=== PATIENT | female | born 1960 | race Caucasian/White ===

== ENCOUNTER 2020-09-16 07:51 | Outpatient (REF) | payer OTHER, SELFPAY ==
--- NOTE | 2020-09-16 | MM_ITS ---
EXAMINATION: MM SCREENING DIGITAL BREAST TOMOSYNTHESIS, BILATERAL CLINICAL INFORMATION: Screening. Asymptomatic. The lifetime risk of breast cancer based on the Tyrer-Cuzick Model is 6%. COMPARISON: Mammography: 09/11/2019, 09/05/2018 TECHNIQUE: Digital breast tomosynthesis is performed in both the craniocaudal and mediolateral oblique views along with computer-aided detection (CAD). Synthesized 2D images are generated from the tomosynthesis. FINDINGS: There are scattered areas of fibroglandular density (ACR BI-RADS breast composition Category b). There are no significant masses, abnormal calcifications, or other abnormalities. Lower right axillary tail node stable. No significant changes prior studies. IMPRESSION: No mammographic evidence of malignancy. ASSESSMENT: BI-RADS 2: Benign RECOMMENDATION: Routine annual mammography screening. This patient's information was entered into a reminder system with a target due date for their next mammogram.
== END 2020-09-16 07:52 | disposition home or self-care (01) ==
LOC: HO.MAMMO 07:51
PROVIDERS: Visit Provider Internal Medicine Medical Oncology
DX: Z12.31 Encounter for screening mammogram for malignant neoplasm of breast (principal)
CPT/HCPCS: 77063; 77067

== ENCOUNTER 2020-09-26 08:29 | Outpatient (REF) | payer OTHER, SELFPAY ==
[2020-09-26 15:54] LABS: CT PCR NOT DETECTED (Not Detect.); NG PCR NOT DETECTED (Not Detect.)
[2020-09-27 09:47] LABS: BV Int Neg Control Negative (Negative); BV Int Pos Control Positive (Positive)
== END 2020-09-26 08:30 | disposition home or self-care (01) ==
LOC: HO.LAB 08:29
PROVIDERS: PCP Internal Medicine Medical Oncology; Referring Provider Internal Medicine Medical Oncology; Visit Provider Obstetrics & Gynecology
DX: N89.8 Other specified noninflammatory disorders of vagina (principal); N95.0 Postmenopausal bleeding; E66.9 Obesity, unspecified; Z68.35 Body mass index [BMI] 35.0-35.9, adult; Z11.8 Encounter for screening for other infectious and parasitic diseases; Z11.3 Encounter for screening for infections with a predominantly sexual mode of transmission
CPT/HCPCS: 87480; 87491; 87510; 87591; 87660; 99214

== ENCOUNTER 2020-10-03 12:17 | Outpatient (REF) | payer OTHER, SELFPAY ==
--- NOTE | 2020-10-03 12:20 | US_ITS ---
EXAMINATION: PELVIC ULTRASOUND CLINICAL INFORMATION: Postmenopausal bleeding COMPARISON: Previous pelvic ultrasound December 2016 TECHNIQUE: Transabdominal and transvaginal pelvic ultrasound was performed. Transvaginal exam was performed for better visualization of the uterus and ovaries. FINDINGS: The uterus is anteverted and measures 7.6 x 3.6 x 4.2 cm in dimension. There is a 1.4 x 1.2 x 1.5 cm heterogeneous lesion in the posterior uterine body suggestive of a fibroid. This is similar to previous exam. The endometrium appears thickened for a postmenopausal patient. The endometrium measures 1.2 cm. Endometrium is heterogeneous with multiple cystic areas. Largest cyst measures 6 x 5 x 7 mm. Endometrial thickness is similar to December 2016 exam. The small cystic areas were not appreciated on the previous exam. There is a small amount of fluid in the endocervical canal. There are nabothian cysts in the cervix. The ovaries are not seen. There is no fluid in the pelvis. US/US transvaginal IMPRESSION: Thickened heterogeneous endometrium with small cystic areas. Endometrial thickness measures 1.2 cm which is abnormally thickened for a postmenopausal patient. Stable small posterior uterine body fibroid. Ovaries not seen.
--- NOTE | 2020-10-03 12:20 | US_ITS ---
EXAMINATION: PELVIC ULTRASOUND CLINICAL INFORMATION: Postmenopausal bleeding COMPARISON: Previous pelvic ultrasound December 2016 TECHNIQUE: Transabdominal and transvaginal pelvic ultrasound was performed. Transvaginal exam was performed for better visualization of the uterus and ovaries. FINDINGS: The uterus is anteverted and measures 7.6 x 3.6 x 4.2 cm in dimension. There is a 1.4 x 1.2 x 1.5 cm heterogeneous lesion in the posterior uterine body suggestive of a fibroid. This is similar to previous exam. The endometrium appears thickened for a postmenopausal patient. The endometrium measures 1.2 cm. Endometrium is heterogeneous with multiple cystic areas. Largest cyst measures 6 x 5 x 7 mm. Endometrial thickness is similar to December 2016 exam. The small cystic areas were not appreciated on the previous exam. There is a small amount of fluid in the endocervical canal. There are nabothian cysts in the cervix. The ovaries are not seen. There is no fluid in the pelvis. US/US pelvic complete IMPRESSION: Thickened heterogeneous endometrium with small cystic areas. Endometrial thickness measures 1.2 cm which is abnormally thickened for a postmenopausal patient. Stable small posterior uterine body fibroid. Ovaries not seen.
== END 2020-10-03 12:18 | disposition home or self-care (01) ==
LOC: HO.US 12:17
PROVIDERS: Visit Provider Obstetrics & Gynecology
DX: N95.0 Postmenopausal bleeding (principal)
CPT/HCPCS: 76830; 76856

== ENCOUNTER → 2020-10-24 14:56 | Outpatient (BNVA) | payer OTHER, SELFPAY | PROVIDERS: Visit Provider Obstetrics & Gynecology | DX: Z01.818 Encounter for other preprocedural examination (principal); N95.0 Postmenopausal bleeding | CPT/HCPCS: 99212 ==

== ENCOUNTER 2020-10-28 07:30 | Outpatient (REF) | payer OTHER, SELFPAY ==
[2020-10-28 07:53] LABS: MANUAL DIFF FLAG NO
[2020-10-28 07:55] LABS: Basophils Percent Auto 0.5 % (0-2); Eosinophils Absolute Auto 0.3 X10*3/uL (0.0-0.4); Eosinophils Percent Auto 3.6 % (0-4); Hematocrit 39.6 % (37-47); Hemoglobin 12.7 g/dl (12.0-16.0); Imm Gran Abs Auto 0.08 X10*3/uL (0.00-0.03); Imm Gran Pct Auto 0.9 % (0.0-0.4); Lymphocytes Absolute Auto 3.6 X10*3/uL (1.2-4.9); Lymphocytes Percent Auto 42.7 % (20-40); Mean Corpuscular HGB Conc 32.1 g/dl (31.0-35.0); Mean Corpuscular Volume 87.4 fL (80-98); Mean Platelet Volume 11.9 fL (9.4-12.3); Monocytes Absolute Auto 0.6 X10*3/uL (0.1-1.2); Monocytes Percent Auto 6.8 % (2-11); Neutrophils Absolute Auto 3.9 X10*3/uL (2.0-8.3); Neutrophils Percent Auto 45.5 % (45-73); Platelet Count 244 X10*3/uL (160-400); Red Blood Count 4.53 X10*6/uL (4.20-5.50); Red Cell Distribution Width 12.7 % (11.0-16.0); White Blood Count 8.5 X10*3/uL (4.8-10.8)
[2020-10-28 08:16] LABS: Alanine Aminotransferase 88 U/L (0-31); Albumin Level 4.3 g/dL (3.5-5.0); Alkaline Phosphatase 116 U/L (39-117); Anion Gap 12 (12-20); Aspartate Amino Transferase 40 U/L (5-31); Bilirubin Total 0.4 mg/dL (0.0-1.0); Blood Urea Nitrogen 12 mg/dL (9-16); Calcium 9.6 mg/dL (8.4-10.2); Carbon Dioxide 27 mmol/L (22-29); Chloride 104 mmol/L (96-108); Cholesterol 244 mg/dL; Estimated Glomerular Filt Rate > 60; Glucose Fasting 259 mg/dL (60-99); HDL Cholesterol 37 mg/dL; LDL Cholesterol Calculated 155 mg/dl; Potassium 4.2 mmol/l (3.3-5.1); Sodium 139 mmol/L (135-145); Total Protein 6.9 g/dL (6.5-8.0); Triglycerides 264 mg/dL
[2020-10-28 08:18] LABS: Estimated Average Glucose 217 mg/dL; Hemoglobin A1c % 9.2 %
== END 2020-10-28 07:31 | disposition home or self-care (01) ==
LOC: HO.LAB 07:30
PROVIDERS: PCP Internal Medicine Medical Oncology; Visit Provider Internal Medicine Medical Oncology
DX: I10 Essential (primary) hypertension (principal); E66.9 Obesity, unspecified; E78.2 Mixed hyperlipidemia
CPT/HCPCS: 36415; 80053; 80061; 83036; 85025

== ENCOUNTER 2020-11-02 11:39 | Day surgery (SDC) | payer OTHER, SELFPAY ==
[2020-10-30 08:13] VITALS: BMI 35.3
--- NOTE | 2020-11-01 09:20 | HO.ANESPROP2 ---
Documented by User: Inna Blanca 11/01/20 09:21 HPI - Anesthesia Eval Consult details Narrative: 60yo F for D&C Diagnostic Hysteroscopy with Myosure PMFSH Past Medical History Medical History delivery delivered Diabetes Elevated cholesterol Hypertension Family History Family History Paternal Grandmother Intestinal cancer Maternal Grandfather FH: throat cancer Surgical History Surgical History Hx of section Tubal ligation status Social History Social History Alcohol intake: never Smoking Status: Never smoker Use of substances other than those prescribed or required for medical reasons: No Advance Directives Information Provided: No Sexual orientation: Straight/Heterosexual Gender identity: female Meds Allergies Allergy/AdvReac Type Severity Reaction Status Date / Time No Known Allergies Allergy Verified 10/24/20 15:25 Home Medications Medication Instructions Recorded Confirmed Type metformin 500 mg tablet 500 mg PO BID 09/26/20 10/30/20 History glipizide 5 mg PO BID 10/30/20 10/30/20 History hydrochlorothiazide 25 mg PO QAM 10/30/20 10/30/20 History lisinopril 10 mg PO DAILY 10/30/20 10/30/20 History simvastatin 10 mg PO BEDTIME 10/30/20 10/30/20 History Exam Exam Date and Time: November 01, 2020 0920 Height,Weight and Vital Signs: Height 5 ft Weight 82.1 kg Pertinent Lab Results Pertinent Lab Results: Laboratory Tests 10/28/20 10/28/20 07:40 07:40 WBC 8.5 Hgb 12.7 Hct 39.6 Plt Count 244 Sodium 139 Potassium 4.2 Chloride 104 Carbon Dioxide 27 BUN 12 Creatinine 0.80 Assessment and Plan Assessment Anesthesia Assessment: Chart Reviewed Documented by User: Jasper Amos MD 11/02/20 17:05 [facility] Past Medical History Medical History delivery delivered Diabetes Elevated cholesterol Hypertension Family History Family History Paternal Grandmother Intestinal cancer Maternal Grandfather FH: throat cancer Surgical History Surgical History Hx of section Tubal ligation status Social History Social History Alcohol intake: never Smoking Status: Never smoker Use of substances other than those prescribed or required for medical reasons: No Advance Directives Information Provided: No Sexual orientation: Straight/Heterosexual Gender identity: female Meds Allergies Allergy/AdvReac Type Severity Reaction Status Date / Time No Known Allergies Allergy Verified 10/24/20 15:25 Home Medications Medication Instructions Recorded Confirmed Type metformin 500 mg tablet 500 mg PO BID 09/26/20 10/30/20 History glipizide 5 mg PO BID 10/30/20 10/30/20 History hydrochlorothiazide 25 mg PO QAM 10/30/20 10/30/20 History lisinopril 10 mg PO DAILY 10/30/20 10/30/20 History simvastatin 10 mg PO BEDTIME 10/30/20 10/30/20 History Exam Airway Mallampati Class: III TM Dist: >3cm Neck ROM: Full Denture: Upper and Lower Loose/Missing/Broken Teeth: No Assessment and Plan Assessment Anesthesia Assessment: Anesthesia Plan Discussed and Chart Reviewed Final Anesthetic Review NPO: Yes ASA Class: III Final Preanesthetic Review: No Changes in Pt Med Stat, Meds/Allgs Chart Reviewed, Consent Obtained/Reviewed and Anes Risks/Benef Reviewed Patient Risk: Low Procedure Risk: Low Anesthetic Plan Anesthetic Plan: GA Disposition: Standard PACU
[2020-11-02 12:28] VITALS: BP 146/95; PULSE 72; RESP 16; TEMP 36.3; O2SAT 98
[2020-11-02] MEDS: Lactated Ringers 1,000 ML 100 ML IVCONT (12:51)
[2020-11-02 13:15] LABS: Glucose, Whole Blood 175 mg/dL (60-115)
--- NOTE | 2020-11-02 17:16 | MHC.SHP ---
Pre-Procedural Eval Section A The patient is an INPATIENT: No Changes since office visit: No Cold of Flu in the past 2 weeks, No New Medical Problems, No Changes in Medication and No Patient answered all questions The History & Physical has been completed within 30 days and I have reviewed it.: Yes Section B Chief Complaint: Post-Menopausal Bleeding Allergies: Allergies Allergy/AdvReac Type Severity Reaction Status Date / Time No Known Allergies Allergy Verified 10/24/20 15:25 Plan Patient has been examined and remains a candidate for the planned procedure
--- NOTE | 2020-11-02 17:20 | W.PM.OPN ---
Operative Note Operative Note Date of Service: 11/02/20 Narrative: Pre-Op Diagnosis: 1. Postmenopausal bleeding 2. Thickened endometrial lining Post op Diagnoses: Same 3. Endometrial polyp Procedures performed: Hysteroscopy D&C with Myosure polypectomy Ms. Camara is a 60 year old with postmenopausal bleeding. She presents today for hysteroscopy d&c for postmenopausal bleeding after pelvic US showed a thickened endometrial lining of 1.2cm. Surgical Risks: The patient was informed of the risks and benefits of a hysteroscopy with dilation and curettage. Risks included but were not limited to bleeding, infection, injury to the vulva, vagina, or cervix, and uterine perforation with possible need for further surgery. The patient expressed understanding of the risks involved, all questions were answered, and the patient consented to the procedure. The patient was taken to the operating room where a time out was confirmed to confirm correct patient and correct procedure. Adequate general anesthesia was established. The patient was then positioned on the operating table in the dorsal lithotomy position with her legs supported using stirrups. All pressure points were padded and a warm blanket was placed to maintain control of core body temperature. The patient was then prepped and draped in the usual sterile fashion. A straight catheter was inserted into the bladder and urine was obtained. A bivalve speculum was then inserted into the vagina. The anterior lip of the cervix was visualized and grasped using a single tooth tenaculum. The cervix was adequately dilated using Gregory dilators for the introduction of the hysteroscope. The hysteroscope was introduced under direct visualization using normal saline solution as the distending media. The hysteroscope was advanced to the fundus and the entire uterine cavity was inspected. A polyp filling the uterine fundus was noted. The myosure device was inserted and curettage of the polyp performed until it was determined that remaining polyp could not be safely removed as it was beyond visualization with the scope. An attempt was made to locate a longer scope; however, none was available. The hysteroscope was then removed. Endometrial tissue was obtained and was sent to pathology. Following the curetting, good hemostasis was noted. The single-tooth tenaculum was removed from the anterior lip of the cervix and hemostasis was also noted at the tenaculum puncture sites. The speculum was then removed from the vagina. At the end of the procedure, all needle, sponge, and instrument counts were noted to be correct x2. The patient was transferred to the recovery room in stable condition. Fluid Deficit: estimated approximately 500mL; difficult to estimate due to most of the fluid being on the floor and surgeon. EBL: 5mL
[2020-11-02 17:28] VITALS: BP 156/82; PULSE 95; RESP 16; TEMP 37; O2SAT 98
[2020-11-02 17:33] VITALS: BP 126/92; PULSE 92; RESP 16; O2SAT 94
[2020-11-02 17:38] VITALS: BP 131/92; PULSE 81; RESP 16; O2SAT 93
[2020-11-02 17:43] VITALS: BP 137/83; PULSE 80; RESP 16; O2SAT 93
[2020-11-02 17:58] VITALS: BP 152/93; PULSE 84; RESP 18; O2SAT 95
== END 2020-11-02 18:25 | disposition home or self-care (01) ==
PROVIDERS: PCP Internal Medicine Medical Oncology; Visit Provider Obstetrics & Gynecology
PROC: 0UDB8ZX Extraction of Endometrium, Via Natural or Artificial Opening Endoscopic, Diagnostic (ICD-10-PCS; CPT 58558; principal; 2020-11-02 13:30)
DX: N95.0 Postmenopausal bleeding (principal); N84.0 Polyp of corpus uteri; D25.9 Leiomyoma of uterus, unspecified; Z98.51 Tubal ligation status; I10 Essential (primary) hypertension; E11.9 Type 2 diabetes mellitus without complications; E78.00 Pure hypercholesterolemia, unspecified; Z79.84 Long term (current) use of oral hypoglycemic drugs; Z79.899 Other long term (current) drug therapy; Z80.0 Family history of malignant neoplasm of digestive organs
CPT/HCPCS: 58558; 82947; 88305; J1100; J2250; J2405; J3010

== ENCOUNTER → 2020-11-15 12:45 | Outpatient (BNVA) | payer OTHER, SELFPAY | PROVIDERS: PCP Internal Medicine Medical Oncology; Visit Provider Obstetrics & Gynecology | DX: Z76.89 Persons encountering health services in other specified circumstances (principal) ==

== ENCOUNTER 2021-02-03 07:05 | Outpatient (REF) | payer OTHER, SELFPAY ==
[2021-02-03 07:37] LABS: MANUAL DIFF FLAG NO
[2021-02-03 07:58] LABS: Basophils Percent Auto 0.4 % (0-2); Eosinophils Absolute Auto 0.3 X10*3/uL (0.0-0.4); Eosinophils Percent Auto 3.2 % (0-4); Hematocrit 40.9 % (37-47); Hemoglobin 13.2 g/dl (12.0-16.0); Imm Gran Abs Auto 0.07 X10*3/uL (0.00-0.03); Imm Gran Pct Auto 0.9 % (0.0-0.4); Lymphocytes Absolute Auto 3.1 X10*3/uL (1.2-4.9); Lymphocytes Percent Auto 39.9 % (20-40); Mean Corpuscular HGB Conc 32.3 g/dl (31.0-35.0); Mean Corpuscular Volume 86.7 fL (80-98); Mean Platelet Volume 12.3 fL (9.4-12.3); Monocytes Absolute Auto 0.6 X10*3/uL (0.1-1.2); Neutrophils Absolute Auto 3.8 X10*3/uL (2.0-8.3); Neutrophils Percent Auto 48.6 % (45-73); Platelet Count 269 X10*3/uL (160-400); Red Blood Count 4.72 X10*6/uL (4.20-5.50); Red Cell Distribution Width 12.7 % (11.0-16.0); White Blood Count 7.9 X10*3/uL (4.8-10.8)
[2021-02-03 08:07] LABS: Alanine Aminotransferase 86 U/L (0-31); Albumin Level 4.7 g/dL (3.5-5.0); Alkaline Phosphatase 112 U/L (39-117); Anion Gap 12 (12-20); Aspartate Amino Transferase 46 U/L (5-31); Bilirubin Total 0.7 mg/dL (0.0-1.0); Blood Urea Nitrogen 16 mg/dL (9-16); Carbon Dioxide 29 mmol/L (22-29); Chloride 103 mmol/L (96-108); Cholesterol 216 mg/dL; Estimated Glomerular Filt Rate > 60; Glucose Random 166 mg/dL (60-115); HDL Cholesterol 34 mg/dL; LDL Cholesterol Calculated 154 mg/dl; Potassium 4.5 mmol/L (3.3-5.1); Sodium 139 mmol/L (135-145); Total Protein 7.2 g/dL (6.5-8.0); Triglycerides 141 mg/dL
[2021-02-03 08:14] LABS: Calcium 10.7 mg/dL (8.4-10.2)
[2021-02-03 09:16] LABS: Estimated Average Glucose 189 mg/dL; Hemoglobin A1c % 8.2 %
== END 2021-02-03 07:06 | disposition home or self-care (01) ==
LOC: HO.LAB 07:05
PROVIDERS: PCP Internal Medicine Medical Oncology; Visit Provider Internal Medicine Medical Oncology
DX: I10 Essential (primary) hypertension (principal); E66.9 Obesity, unspecified; E11.39 Type 2 diabetes mellitus with other diabetic ophthalmic complication; E78.2 Mixed hyperlipidemia; E83.52 Hypercalcemia
CPT/HCPCS: 36415; 80053; 80061; 83036; 85025

== ENCOUNTER 2021-07-07 07:34 | Outpatient (REF) | payer OTHER, SELFPAY ==
[2021-07-07 08:32] LABS: MANUAL DIFF FLAG NO
[2021-07-07 08:43] LABS: Basophils Absolute Auto 0.1 X10*3/uL (0.0-0.2); Basophils Percent Auto 0.6 % (0-2); Eosinophils Absolute Auto 0.3 X10*3/uL (0.0-0.4); Eosinophils Percent Auto 3.6 % (0-4); Hematocrit 41.2 % (37-47); Hemoglobin 13.2 g/dl (12.0-16.0); Imm Gran Abs Auto 0.15 X10*3/uL (0.00-0.03); Imm Gran Pct Auto 1.7 % (0.0-0.4); Lymphocytes Absolute Auto 3.3 X10*3/uL (1.2-4.9); Lymphocytes Percent Auto 38.2 % (20-40); Mean Corpuscular Hemoglobin 27.6 pg (27.0-33.0); Mean Platelet Volume 11.8 fL (9.4-12.3); Monocytes Absolute Auto 0.6 X10*3/uL (0.1-1.2); Monocytes Percent Auto 6.6 % (2-11); Neutrophils Absolute Auto 4.3 X10*3/uL (2.0-8.3); Neutrophils Percent Auto 49.3 % (45-73); Platelet Count 269 X10*3/uL (160-400); Red Blood Count 4.79 X10*6/uL (4.20-5.50); Red Cell Distribution Width 13.5 % (11.0-16.0); White Blood Count 8.7 X10*3/uL (4.8-10.8)
[2021-07-07 08:55] LABS: Estimated Average Glucose 171 mg/dL; Hemoglobin A1c % 7.6 %
[2021-07-07 09:10] LABS: Alanine Aminotransferase 48 U/L (0-31); Albumin Level 4.5 g/dL (3.5-5.0); Alkaline Phosphatase 103 U/L (39-117); Anion Gap 16 (12-20); Aspartate Amino Transferase 23 U/L (5-31); Bilirubin Total 0.5 mg/dL (0.0-1.0); Blood Urea Nitrogen 18 mg/dL (9-16); Carbon Dioxide 23 mmol/L (22-29); Chloride 104 mmol/L (96-108); Cholesterol 261 mg/dL; Estimated Glomerular Filt Rate > 60; Glucose Fasting 199 mg/dL (60-99); HDL Cholesterol 44 mg/dL; LDL Cholesterol Calculated 155 mg/dl; Potassium 3.9 mmol/L (3.3-5.1); Sodium 139 mmol/L (135-145); Total Protein 7.3 g/dL (6.5-8.0); Triglycerides 314 mg/dL
[2021-07-07 09:41] LABS: Calcium 10.7 mg/dL (8.4-10.2)
== END 2021-07-07 07:35 | disposition home or self-care (01) ==
LOC: HO.LAB 07:34
PROVIDERS: PCP Internal Medicine Medical Oncology; Visit Provider Internal Medicine Medical Oncology
DX: E66.9 Obesity, unspecified (principal); I10 Essential (primary) hypertension; E78.2 Mixed hyperlipidemia
CPT/HCPCS: 36415; 80053; 80061; 83036; 85025

== ENCOUNTER 2021-10-06 08:41 | Outpatient (REF) | payer OTHER, SELFPAY ==
[2021-10-06 08:56] LABS: MANUAL DIFF FLAG NO
[2021-10-06 09:36] LABS: Basophils Absolute Auto 0.1 X10*3/uL (0.0-0.2); Basophils Percent Auto 0.7 % (0-2); Eosinophils Absolute Auto 0.3 X10*3/uL (0.0-0.4); Eosinophils Percent Auto 3.1 % (0-4); Hematocrit 41.8 % (37.0-47.0); Hemoglobin 13.6 g/dl (12.0-16.0); Imm Gran Abs Auto 0.14 X10*3/uL (0.00-0.03); Imm Gran Pct Auto 1.6 % (0.0-0.4); Lymphocytes Absolute Auto 3.2 X10*3/uL (1.2-4.9); Lymphocytes Percent Auto 36.1 % (20-40); Mean Corpuscular HGB Conc 32.5 g/dl (31.0-35.0); Mean Corpuscular Hemoglobin 28.4 pg (27.0-33.0); Mean Corpuscular Volume 87.3 fL (80.0-98.0); Mean Platelet Volume 11.8 fL (9.4-12.3); Monocytes Absolute Auto 0.6 X10*3/uL (0.1-1.2); Monocytes Percent Auto 7.3 % (2-11); Neutrophils Absolute Auto 4.5 x10*3/uL (2.0-8.3); Neutrophils Percent Auto 51.2 % (45-73); Platelet Count 270 X10*3/uL (160-400); Red Blood Count 4.79 X10*6/uL (4.20-5.50); Red Cell Distribution Width 12.7 % (11.0-16.0); White Blood Count 8.8 X10*3/uL (4.8-10.8)
[2021-10-06 09:39] LABS: Estimated Average Glucose 192 mg/dL; Hemoglobin A1c % 8.3 %
[2021-10-06 09:53] LABS: Microalbum/Creatinine Ratio Ur 49.8 ug/mg cr
[2021-10-06 09:55] LABS: Alanine Aminotransferase 79 U/L (0-31); Albumin Level 4.6 g/dL (3.5-5.0); Alkaline Phosphatase 132 U/L (39-117); Anion Gap 11 (12-20); Aspartate Amino Transferase 46 U/L (5-31); Bilirubin Total 0.5 mg/dL (0.0-1.0); Blood Urea Nitrogen 11 mg/dL (9-16); Calcium 10.9 mg/dL (8.4-10.2); Carbon Dioxide 28 mmol/L (22-29); Chloride 103 mmol/L (96-108); Cholesterol 248 mg/dL; Estimated Glomerular Filt Rate > 60; Glucose Fasting 221 mg/dL (60-99); HDL Cholesterol 38 mg/dL; LDL Cholesterol Calculated 152 mg/dl; Potassium 4.4 mmol/L (3.3-5.1); Sodium 138 mmol/L (135-145); Total Protein 7.2 g/dL (6.5-8.0); Triglycerides 290 mg/dL
== END 2021-10-06 08:42 | disposition home or self-care (01) ==
LOC: HO.LAB 08:41
PROVIDERS: PCP Internal Medicine Medical Oncology; Visit Provider Internal Medicine Medical Oncology
DX: I10 Essential (primary) hypertension (principal); E66.9 Obesity, unspecified; E11.39 Type 2 diabetes mellitus with other diabetic ophthalmic complication
CPT/HCPCS: 36415; 80053; 80061; 82043; 83036; 85025

== ENCOUNTER 2021-11-08 06:33 | Outpatient (REF) | payer OTHER, SELFPAY ==
--- NOTE | ~2021-11-08 | XR_ITS ---
EXAMINATION: XR SHOULDER, LEFT CLINICAL INFORMATION: Pain COMPARISON: Chest x-ray 03/21/2020 TECHNIQUE: Three views of the left shoulder. FINDINGS: Visualized portion of the proximal left humerus demonstrate no fracture. Humeral head demonstrates good articulation with the glenoid fossa. Small osteophyte along the inferomedial aspect of the humeral head/neck junction. There are mild hypertrophic changes of the acromioclavicular joint. Visualized left-sided ribs and lung parenchyma are unremarkable. XR/XR shoulder LT min 2V IMPRESSION: Mild degenerative changes of the left shoulder.
== END 2021-11-08 06:34 | disposition home or self-care (01) ==
LOC: HO.HOSX 06:33
PROVIDERS: Visit Provider Physician Assistant
DX: M75.42 Impingement syndrome of left shoulder (principal)
CPT/HCPCS: 73030; 99202

== ENCOUNTER 2021-12-22 08:51 | Outpatient (REF) | payer MEDICAID, SELFPAY ==
--- NOTE | ~2021-12-22 | MM_ITS ---
EXAMINATION: MM SCREENING DIGITAL BREAST TOMOSYNTHESIS, BILATERAL CLINICAL INFORMATION: Screening. Asymptomatic. The lifetime risk of breast cancer based on the Tyrer-Cuzick Model is 5%. COMPARISON: Mammography: 09/16/2020, 09/11/2019, 09/05/2018, 09/07/2016 TECHNIQUE: Digital breast tomosynthesis is performed in both the craniocaudal and mediolateral oblique views along with computer-aided detection (CAD). Synthesized 2D images are generated from the tomosynthesis. FINDINGS: There are scattered areas of fibroglandular density (ACR BI-RADS breast composition Category b). There are no significant masses, abnormal calcifications, or other abnormalities. Parenchymal pattern is similar to prior studies. There is no developing density or architectural abnormality. Intramammary node posterior upper outer right breast is stable to decreased. The axilla and skin contours are unremarkable. No significant changes. MM/MM tomosynthesis screening BI IMPRESSION: No mammographic evidence of malignancy. ASSESSMENT: BI-RADS 2: Benign RECOMMENDATION: Routine annual mammography screening. This patient's information was entered into a reminder system with a target due date for their next mammogram.
== END 2021-12-22 08:52 | disposition home or self-care (01) ==
LOC: HO.MAMMO 08:51
PROVIDERS: Visit Provider Internal Medicine Medical Oncology
DX: Z12.31 Encounter for screening mammogram for malignant neoplasm of breast (principal)
CPT/HCPCS: 77063; 77067

== ENCOUNTER 2022-01-12 09:37 | Outpatient (REF) | payer MEDICAID, SELFPAY ==
[2022-01-12 09:52] LABS: MANUAL DIFF FLAG NO
[2022-01-12 10:59] LABS: Basophils Absolute Auto 0.1 X10*3/uL (0.0-0.2); Basophils Percent Auto 0.6 % (0-2); Eosinophils Absolute Auto 0.3 X10*3/uL (0.0-0.4); Eosinophils Percent Auto 3.4 % (0-4); Hematocrit 40.6 % (37.0-47.0); Hemoglobin 13.4 g/dl (12.0-16.0); Imm Gran Abs Auto 0.16 X10*3/uL (0.00-0.03); Imm Gran Pct Auto 1.8 % (0.0-0.4); Lymphocytes Absolute Auto 3.2 X10*3/uL (1.2-4.9); Lymphocytes Percent Auto 35.3 % (20-40); Mean Corpuscular Hemoglobin 28.2 pg (27.0-33.0); Mean Corpuscular Volume 85.5 fL (80.0-98.0); Mean Platelet Volume 12.4 fL (9.4-12.3); Monocytes Absolute Auto 0.6 X10*3/uL (0.1-1.2); Monocytes Percent Auto 6.5 % (2-11); Neutrophils Absolute Auto 4.7 x10*3/uL (2.0-8.3); Neutrophils Percent Auto 52.4 % (45-73); Platelet Count 289 X10*3/uL (160-400); Red Blood Count 4.75 X10*6/uL (4.20-5.50); Red Cell Distribution Width 13.2 % (11.0-16.0)
[2022-01-12 11:28] LABS: Alanine Aminotransferase 90 U/L (0-31); Albumin Level 4.6 g/dL (3.5-5.0); Alkaline Phosphatase 115 U/L (39-117); Anion Gap 12 (12-20); Aspartate Amino Transferase 63 U/L (5-31); Bilirubin Total 0.6 mg/dL (0.0-1.0); Blood Urea Nitrogen 12 mg/dL (9-16); Calcium 10.9 mg/dL (8.4-10.2); Carbon Dioxide 26 mmol/L (22-29); Chloride 104 mmol/L (96-108); Cholesterol 258 mg/dL; Estimated Glomerular Filt Rate > 60; Glucose Fasting 177 mg/dL (60-99); HDL Cholesterol 35 mg/dL; LDL Cholesterol Calculated 179 mg/dl; Potassium 4.2 mmol/L (3.3-5.1); Sodium 138 mmol/L (135-145); Total Protein 7.3 g/dL (6.5-8.0); Triglycerides 220 mg/dL
[2022-01-12 11:35] LABS: Estimated Average Glucose 200 mg/dL; Hemoglobin A1c % 8.6 %
[2022-01-14 16:22] LABS: Calcium (PTHI) 11.1 mg/dL (8.6-10.4); PTHI 69 pg/mL (14-64)
== END 2022-01-12 09:38 | disposition home or self-care (01) ==
LOC: HO.LAB 09:37
PROVIDERS: PCP Internal Medicine Medical Oncology; Visit Provider Internal Medicine Medical Oncology
DX: I10 Essential (primary) hypertension (principal); E78.2 Mixed hyperlipidemia
CPT/HCPCS: 36415; 80053; 80061; 83036; 83970; 85025

== ENCOUNTER 2022-03-11 08:13 | Outpatient (REF) | payer MEDICAID, SELFPAY ==
[2022-03-12 15:29] LABS: BV Int Neg Control Negative (Negative); BV Int Pos Control Positive (Positive)
[2022-03-13 16:32] LABS: HPV mRNA E6/E7 rflx Not Detected (Not Detected)
== END 2022-03-11 08:14 | disposition home or self-care (01) ==
LOC: HO.LAB 08:13
PROVIDERS: PCP Internal Medicine Medical Oncology; Visit Provider Advanced Practice Midwife
DX: Z01.411 Encounter for gynecological examination (general) (routine) with abnormal findings (principal); Z11.51 Encounter for screening for human papillomavirus (HPV); N89.8 Other specified noninflammatory disorders of vagina
CPT/HCPCS: 87480; 87510; 87624; 87660; 88142

== ENCOUNTER 2022-04-13 07:34 | Outpatient (REF) | payer MEDICAID, SELFPAY ==
[2022-04-13 07:40] LABS: MANUAL DIFF FLAG NO
[2022-04-13 08:04] LABS: Basophils Percent Auto 0.4 % (0-2); Eosinophils Absolute Auto 0.4 X10*3/uL (0.0-0.4); Eosinophils Percent Auto 4.1 % (0-4); Hematocrit 40.2 % (37.0-47.0); Imm Gran Abs Auto 0.17 X10*3/uL (0.00-0.03); Imm Gran Pct Auto 1.9 % (0.0-0.4); Lymphocytes Absolute Auto 3.2 X10*3/uL (1.2-4.9); Lymphocytes Percent Auto 35.1 % (20-40); Mean Corpuscular HGB Conc 32.3 g/dl (31.0-35.0); Mean Corpuscular Hemoglobin 27.2 pg (27.0-33.0); Mean Corpuscular Volume 84.1 fL (80.0-98.0); Mean Platelet Volume 11.5 fL (9.4-12.3); Monocytes Absolute Auto 0.6 X10*3/uL (0.1-1.2); Monocytes Percent Auto 6.5 % (2-11); Neutrophils Absolute Auto 4.7 x10*3/uL (2.0-8.3); Platelet Count 255 X10*3/uL (160-400); Red Blood Count 4.78 X10*6/uL (4.20-5.50); Red Cell Distribution Width 13.1 % (11.0-16.0); White Blood Count 9.1 X10*3/uL (4.8-10.8)
[2022-04-13 08:28] LABS: Alanine Aminotransferase 61 U/L (0-31); Albumin Level 4.4 g/dL (3.5-5.0); Alkaline Phosphatase 127 U/L (39-117); Anion Gap 11 (12-20); Aspartate Amino Transferase 30 U/L (5-31); Bilirubin Total 0.4 mg/dL (0.0-1.0); Blood Urea Nitrogen 15 mg/dL (9-16); Calcium 10.9 mg/dL (8.4-10.2); Carbon Dioxide 25 mmol/L (22-29); Chloride 106 mmol/L (96-108); Cholesterol 231 mg/dL; Estimated Average Glucose 177 mg/dL; Estimated Glomerular Filt Rate > 60; Glucose Fasting 239 mg/dL (60-99); HDL Cholesterol 40 mg/dL; Hemoglobin A1c % 7.8 %; LDL Cholesterol Calculated 147 mg/dl; Potassium 4.2 mmol/L (3.3-5.1); Sodium 138 mmol/L (135-145); Total Protein 7.3 g/dL (6.5-8.0); Triglycerides 223 mg/dL
== END 2022-04-13 07:35 | disposition home or self-care (01) ==
LOC: HO.LAB 07:34
PROVIDERS: PCP Internal Medicine Medical Oncology; Visit Provider Internal Medicine Medical Oncology
DX: I10 Essential (primary) hypertension (principal); E11.39 Type 2 diabetes mellitus with other diabetic ophthalmic complication
CPT/HCPCS: 36415; 80053; 80061; 83036; 85025

== ENCOUNTER 2022-10-03 11:37 | Emergency (ER) | payer MEDICAID, SELFPAY ==
--- NOTE | ~2022-10-03 | XR_ITS ---
EXAMINATION: XR FOOT, LEFT CLINICAL INFORMATION: Injury COMPARISON: None TECHNIQUE: AP, lateral, and oblique views of the left foot. FINDINGS: No fracture or dislocation. Alignment is anatomic. Joint spaces are maintained. There is prominent hypertrophic spurring at the plantar aponeurosis of the calcaneus. No ankle joint effusion. XR/XR foot LT min 3V IMPRESSION: No fracture or malalignment. Prominent plantar heel spur.
[2022-10-03 13:07] VITALS: BP 173/94; PULSE 79; RESP 18; TEMP 36.8; O2SAT 98; BMI 34.2
[2022-10-03 14:52] VITALS: BP 137/84; PULSE 85; RESP 18; TEMP 36.6; O2SAT 96
--- NOTE | 2022-10-03 16:15 | ED_ITS ---
HPI - Extremity Problem General Chief complaint: Extremity Problem Stated complaint: L Foot Pain Time Seen by Provider: 10/03/22 15:39 Source: patient, RN notes reviewed and old records reviewed Mode of arrival: ambulatory Limitations: no limitations History of Present Illness HPI Narrative: 62-year-old female with past medical history of diabetes is here today for complaining of left ankle pain. Patient states that when she woke up yesterday she had left ankle swelling with minimal pain. Patient states that she went to work and as more that she walked her left foot was hurting her. Patient reports to have increased swelling today. Mild redness to the top of her foot close to the lateral malleolus Complaint: extremity pain, joint swelling and joint pain Onset (ago): day(s) Pain Consistency: intermittent Location: left Severity scale (1-10): 8 Quality: aching Relieving factors: immobilization Exacerbating factors: weight bearing and walking Related Data Home Medications Medication Instructions Recorded Confirmed metformin 500 mg tablet 500 mg PO BID 09/26/20 10/30/20 glipizide 5 mg tablet 5 mg PO BID 10/30/20 10/30/20 hydrochlorothiazide 25 mg tablet 25 mg PO QAM 10/30/20 10/30/20 lisinopril 10 mg tablet 10 mg PO DAILY 10/30/20 10/30/20 simvastatin 10 mg tablet 10 mg PO BEDTIME 10/30/20 10/30/20 Previous Rx's Medication Instructions Recorded acetaminophen 650 mg 650 mg PO Q8H PRN pain #30 tabs 11/02/20 tablet,extended release (Tylenol 8 Hour) ibuprofen 800 mg tablet 800 mg PO Q8H PRN pain #30 tabs 11/02/20 fluconazole 150 mg tablet 150 mg PO ONCE PRN personal 1 day 03/11/22 (Diflucan) #1 tab cephalexin 500 mg capsule 500 mg PO BID 7 days #14 caps 10/03/22 doxycycline hyclate 100 mg capsule 100 mg PO BID #14 caps 10/03/22 Allergies Allergy/AdvReac Type Severity Reaction Status Date / Time No Known Allergies Allergy Verified 03/11/22 08:40 Review of Systems Review of Systems: Yes all other systems are reviewed and are negative Constitutional: Constitutional: Denies weight gain and Denies weight loss ENT: Reports system reviewed and no additional complaints, except as documented Cardiovascular: Cardiovascular: Reports no additional cardiovascular complaints Respiratory: Respiratory: Reports no additional respiratory complaints Musculoskeletal: Musculoskeletal: Reports arthralgias and Reports joint swelling Neurologic: Reports system reviewed and no additional complaints, except as documented Psychiatric: Psychiatric: Reports no additional psychiatric complaints Endocrine: Endocrine: Reports no additional endocrine complaints [facility] Past Medical History Medical History delivery delivered Diabetes Elevated cholesterol Hypertension Surgical History History of dilatation and curettage History of hysteroscopy Hx of section Tubal ligation status Family History Family History Paternal Grandmother Colon cancer Maternal Grandfather FH: throat cancer Social History Social History Alcohol intake: never Advance Directives: No Advance Directives Information Provided: No Sexual orientation: Straight/Heterosexual Gender identity: Female Physical Exam Vital Signs: Vital Signs: Last Vital Signs Temp 97.9 F 10/03/22 14:52 Pulse 85 10/03/22 14:52 Resp 18 10/03/22 14:52 BP 137/84 10/03/22 14:52 Pulse Ox 96 10/03/22 14:52 O2 Del Method 10/03/22 14:52 BMI result Body Mass Index 34.2 Extrem: Right upper extremity: normal to inspection, full ROM and normal capillary refill Left upper extremity: normal to inspection, full ROM and normal capillary refill Right lower extremity: normal to inspection, full ROM and normal capillary refill Left lower extremity: normal capillary refill, edema (Ankle, increased warmth) and ankle Details: swelling and pitting edema Course Course Course Narrative: 62-year-old female with past medical history of diabetes is here today for complaining of left ankle pain. Patient states that when she woke up yesterday she had left ankle swelling with minimal pain. Patient states that she went to work and as more that she walked her left foot was hurting her. Patient reports to have increased swelling today. Mild redness to the top of her foot close to the lateral malleolus. On exam patient has good range of motion of her left ankle. Reports to have a pain on the top of her ankle closer to lateral malleolus. Swelling to lateral malleolus and warmth to top of her foot, will order CBC. Patient is diabetic Reevaluation(s) Reevaluation #1: WBC 12.1. X-ray does not show any osteomyelitis or any joint involvement. Alignment is anatomic, joint spaces are maintained, no ankle joint effusion. I will send patient home with antibiotics for 7 days. Patient will follow-up with PCP and Ortho. MDM - Extremity (Nontraumatic) Lab Data Result diagrams: 10/03/22 16:23 Labs: Lab Results 10/03/22 Range/Units 16:23 WBC 12.1 H (4.8-10.8) X10*3/uL RBC 5.17 (4.20-5.50) X10*6/uL Hgb 14.0 (12.0-16.0) g/dl Hct 43.7 (37.0-47.0) % MCV 84.5 (80.0-98.0) fL MCH 27.1 (27.0-33.0) pg MCHC 32.0 (31.0-35.0) g/dl RDW 12.9 (11.0-16.0) % Plt Count 279 (160-400) X10*3/uL MPV 11.8 (9.4-12.3) fL Immature Gran % (Auto) 1.2 H (0.0-0.4) % Neut % (Auto) 64.4 (45-73) % Lymph % (Auto) 24.9 (20-40) % [place] % (Auto) 7.5 (2-11) % Eos % (Auto) 1.7 (0-4) % Baso % (Auto) 0.3 (0-2) % Lymph # (Auto) 3.0 (1.2-4.9) X10*3/uL [place] # (Auto) 0.9 (0.1-1.2) X10*3/uL Eos # (Auto) 0.2 (0.0-0.4) X10*3/uL Baso # (Auto) 0.0 (0.0-0.2) X10*3/uL Abs Immat Gran (auto) 0.15 H (0.00-0.03) X10*3/uL Absolute Neuts (auto) 7.8 (2.0-8.3) x10*3/uL Absolute Nucleated RBC 0.000 (0.0-0.012) X10*3/uL Nucleated RBC % (auto) 0.0 (0.0-0.2) /100WBC Imaging Data L anckle X-ray: Radiologist's impression: FINDINGS: No fracture or dislocation. Alignment is anatomic. Joint spaces are maintained. There is prominent hypertrophic spurring at the plantar aponeurosis of the calcaneus. No ankle joint effusion. XR/XR foot LT min 3V IMPRESSION: No fracture or malalignment. Prominent plantar heel spur. Discharge Plan Discharge Clinical Impression: Cellulitis Patient Disposition: Home, Self-Care Instructions: Cellulitis (ED) Additional Instructions: You have inflammation of your left ankle with possible skin infection. You are being put on 2 different antibiotics. Make sure you take all of the antibiotics. Make sure to follow-up with your primary care provider after you finish the antibiotics. If the swelling increases or you pain gets worse return to ED. Prescriptions: New doxycycline hyclate 100 mg capsule 100 mg PO BID Qty: 14 0RF cephalexin 500 mg capsule 500 mg PO BID 7 Days Qty: 14 0RF No Action lisinopril 10 mg tablet 10 mg PO DAILY hydrochlorothiazide 25 mg tablet 25 mg PO QAM glipizide 5 mg tablet 5 mg PO BID simvastatin 10 mg Tablet 10 mg PO BEDTIME ibuprofen 800 mg tablet 800 mg PO Q8H PRN (Reason: pain) Qty: 30 0RF acetaminophen [Tylenol 8 Hour] 650 mg tablet extended release 650 mg PO Q8H PRN (Reason: pain) Qty: 30 0RF Rx Instructions: Take four hours after ibuprofen metformin 500 mg tablet 500 mg PO BID fluconazole [Diflucan] 150 mg tablet 150 mg PO ONCE PRN (Reason: personal) 1 Days Qty: 1 1RF Referrals: Gerald Treviño MD [Primary Care Provider] - Stand Alone Forms: Work/School Release
[2022-10-03 16:27] LABS: MANUAL DIFF FLAG NO
[2022-10-03 16:42] LABS: Basophils Percent Auto 0.3 % (0-2); Eosinophils Absolute Auto 0.2 X10*3/uL (0.0-0.4); Eosinophils Percent Auto 1.7 % (0-4); Hematocrit 43.7 % (37.0-47.0); Imm Gran Abs Auto 0.15 X10*3/uL (0.00-0.03); Imm Gran Pct Auto 1.2 % (0.0-0.4); Lymphocytes Percent Auto 24.9 % (20-40); Mean Corpuscular Hemoglobin 27.1 pg (27.0-33.0); Mean Corpuscular Volume 84.5 fL (80.0-98.0); Mean Platelet Volume 11.8 fL (9.4-12.3); Monocytes Absolute Auto 0.9 X10*3/uL (0.1-1.2); Monocytes Percent Auto 7.5 % (2-11); Neutrophils Absolute Auto 7.8 x10*3/uL (2.0-8.3); Neutrophils Percent Auto 64.4 % (45-73); Platelet Count 279 X10*3/uL (160-400); Red Blood Count 5.17 X10*6/uL (4.20-5.50); Red Cell Distribution Width 12.9 % (11.0-16.0); White Blood Count 12.1 X10*3/uL (4.8-10.8)
[2022-10-03] MEDS: cephALEXin 500 MG CAPSULE PO (17:27)
== END 2022-10-03 17:41 | disposition home or self-care (01) ==
PROVIDERS: Nurse Practitioner Family; Emergency Provider Emergency Medicine; PCP Internal Medicine Medical Oncology
DX: L03.116 Cellulitis of left lower limb (principal); E11.9 Type 2 diabetes mellitus without complications; I10 Essential (primary) hypertension; E78.5 Hyperlipidemia, unspecified; Z79.84 Long term (current) use of oral hypoglycemic drugs; Z79.02 Long term (current) use of antithrombotics/antiplatelets; Z79.899 Other long term (current) drug therapy
CPT/HCPCS: 36415; 73630; 85025; 99282; 99283

== ENCOUNTER 2022-10-07 17:01 | Emergency (ER) | payer MEDICAID, SELFPAY ==
--- NOTE | ~2022-10-07 | XR_ITS ---
EXAMINATION: XR KNEE, LEFT CLINICAL INFORMATION: Knee pain COMPARISON: None TECHNIQUE: Four views of the left knee. FINDINGS: Bones and soft tissues are unremarkable. Vascular calcifications are present. No fracture or joint effusion. Alignment is anatomic. Joint spaces are well maintained. No abnormal soft tissue calcification. XR/XR knee LT 2V IMPRESSION: Unremarkable left knee.
[2022-10-07 18:26] VITALS: BP 132/72; PULSE 81; RESP 16; TEMP 36.7; O2SAT 99; BMI 34.2
--- NOTE | 2022-10-07 23:11 | ED.EXTPRO ---
HPI - Extremity Problem General Chief complaint: Extremity Problem Stated complaint: Left Knee Swelling Time Seen by Provider: 10/07/22 22:54 Source: patient Mode of arrival: ambulatory Limitations: no limitations History of Present Illness HPI Narrative: Patient complaining of left knee pain for last 2 days no history of injury was seen here last week for left ankle cellulitis patient does not have any history of arthritis no history of lupus of Lyme disease no other joint involvement no fever or chills Related Data Home Medications Medication Instructions Recorded Confirmed metformin 500 mg tablet 500 mg PO BID 09/26/20 10/30/20 glipizide 5 mg tablet 5 mg PO BID 10/30/20 10/30/20 hydrochlorothiazide 25 mg tablet 25 mg PO QAM 10/30/20 10/30/20 lisinopril 10 mg tablet 10 mg PO DAILY 10/30/20 10/30/20 simvastatin 10 mg tablet 10 mg PO BEDTIME 10/30/20 10/30/20 Previous Rx's Medication Instructions Recorded acetaminophen 650 mg 650 mg PO Q8H PRN pain #30 tabs 11/02/20 tablet,extended release (Tylenol 8 Hour) ibuprofen 800 mg tablet 800 mg PO Q8H PRN pain #30 tabs 11/02/20 fluconazole 150 mg tablet 150 mg PO ONCE PRN personal 1 day 03/11/22 (Diflucan) #1 tab cephalexin 500 mg capsule 500 mg PO BID 7 days #14 caps 10/03/22 doxycycline hyclate 100 mg capsule 100 mg PO BID #14 caps 10/03/22 ibuprofen 600 mg tablet 600 mg PO Q6H PRN fever or pain 10/07/22 #30 tabs Allergies Allergy/AdvReac Type Severity Reaction Status Date / Time No Known Allergies Allergy Verified 03/11/22 08:40 Review of Systems Review of Systems: Yes all other systems are reviewed and are negative PMFSH Past Medical History Medical History delivery delivered Diabetes Elevated cholesterol Hypertension Surgical History History of dilatation and curettage History of hysteroscopy Hx of section Tubal ligation status Family History Family History Paternal Grandmother Colon cancer Maternal Grandfather FH: throat cancer Social History Social History Alcohol intake: never Advance Directives: No Advance Directives Information Provided: No Sexual orientation: Straight/Heterosexual Gender identity: Female Physical Exam Vital Signs: Vital Signs: Last Vital Signs Temp 98.0 F 10/07/22 18:26 Pulse 81 10/07/22 18:26 Resp 16 10/07/22 18:26 BP 132/72 10/07/22 18:26 Pulse Ox 99 10/07/22 18:26 O2 Del Method 10/07/22 18:26 BMI result Body Mass Index 34.2 Const: General: healthy appearing and comfortable Extrem: Upper/lower leg/hip images: 1. Prepatellar tenderness no joint effusion no skin discoloration no joint line tenderness Medications Administered Discontinued Medications Generic Name Dose Route Start Last Admin Trade Name Freq PRN Reason Stop Dose Admin Ibuprofen 600 mg 10/07/22 23:09 10/07/22 23:20 Ibuprofen 600 Mg Tablet PO 10/07/22 23:10 600 mg ONCE ONE Administration MDM - Extremity (Nontraumatic) MDM Narrative Medical decision making narrative: Patient with clinically prepatellar bursitis noninfective discharge patient home on ibuprofen Discharge Plan Discharge Clinical Impression: Knee bursitis Patient Disposition: Home, Self-Care Instructions: Knee Bursitis (ED) Additional Instructions: Rest your left knee Pain medication as prescribed Follow with PCP if not better Prescriptions: New ibuprofen 600 mg tablet 600 mg PO Q6H PRN (Reason: fever or pain) Qty: 30 0RF No Action lisinopril 10 mg tablet 10 mg PO DAILY hydrochlorothiazide 25 mg tablet 25 mg PO QAM glipizide 5 mg tablet 5 mg PO BID simvastatin 10 mg Tablet 10 mg PO BEDTIME ibuprofen 800 mg tablet 800 mg PO Q8H PRN (Reason: pain) Qty: 30 0RF acetaminophen [Tylenol 8 Hour] 650 mg tablet extended release 650 mg PO Q8H PRN (Reason: pain) Qty: 30 0RF Rx Instructions: Take four hours after ibuprofen doxycycline hyclate 100 mg capsule 100 mg PO BID Qty: 14 0RF cephalexin 500 mg capsule 500 mg PO BID 7 Days Qty: 14 0RF metformin 500 mg tablet 500 mg PO BID fluconazole [Diflucan] 150 mg tablet 150 mg PO ONCE PRN (Reason: personal) 1 Days Qty: 1 1RF
[2022-10-07] MEDS: Ibuprofen 600 MG TABLET PO (23:20)
== END 2022-10-07 23:41 | disposition home or self-care (01) ==
PROVIDERS: Emergency Provider Internal Medicine; PCP Internal Medicine Medical Oncology
DX: M70.52 Other bursitis of knee, left knee (principal); Y93.9 Activity, unspecified; E11.9 Type 2 diabetes mellitus without complications; I10 Essential (primary) hypertension; E78.5 Hyperlipidemia, unspecified; Z79.02 Long term (current) use of antithrombotics/antiplatelets; Z79.899 Other long term (current) drug therapy; Z79.84 Long term (current) use of oral hypoglycemic drugs
CPT/HCPCS: 73560; 99283

== ENCOUNTER 2023-01-04 09:00 | Outpatient (REF) | payer MEDICAID, SELFPAY ==
--- NOTE | ~2023-01-04 | MM_ITS ---
EXAMINATION: MM SCREENING DIGITAL BREAST TOMOSYNTHESIS, BILATERAL CLINICAL INFORMATION: Screening. Asymptomatic. The lifetime risk of breast cancer based on the Tyrer-Cuzick Model is 5.2%. COMPARISON: Mammography: December 22, 2021 and studies dating back to August 26, 2015 TECHNIQUE: Digital breast tomosynthesis is performed in both the craniocaudal and mediolateral oblique views along with computer-aided detection (CAD). Synthesized 2D images are generated from the tomosynthesis. FINDINGS: There are scattered areas of fibroglandular density (ACR BI-RADS breast composition Category b). There are no significant masses, abnormal calcifications, or other abnormalities. MM/MM tomosynthesis screening BI IMPRESSION: No significant changes from prior exam. ASSESSMENT: BI-RADS 1: Negative RECOMMENDATION: Routine annual mammography screening. This patient's information was entered into a reminder system with a target due date for their next mammogram.
== END 2023-01-04 09:01 | disposition home or self-care (01) ==
LOC: HO.MAMMO 09:00
PROVIDERS: PCP Internal Medicine Medical Oncology; Visit Provider Internal Medicine Medical Oncology
DX: Z12.31 Encounter for screening mammogram for malignant neoplasm of breast (principal)
CPT/HCPCS: 77063; 77067

== ENCOUNTER 2023-11-20 14:07 | Outpatient (AMB) | payer OTHER, SELFPAY ==
--- NOTE | 2023-11-20 14:12 | MHC.OFFVIS ---
Intake Vital Signs 11/20/23 14:21 Weight 158 lb BP 95/51 L Blood Pressure Location Lt brachial Position Sitting Pulse 88 Intake Visit Reasons: abscess and hematoma of back, possible I&D Intake Note: This patient presents for an assessment for abscess and hematoma of the back, possible I&D. Patient c/o; reports no complaints or changes at this time. High Pressure Cleaner Required: No Accompanied by: Self / Same As Patient Allergies No Known Allergies Allergy (Verified 11/20/23 14:22) HPI abscess and hematoma of back, possible I&D HPI Details 63-year-old male referred for a possible back abscess. She says that she had a pimple like lesion about 1 month ago on right upper back near the axilla. This had become swollen. She then fell on her back about 3 weeks ago and she developed swelling and discoloration in the area which was also tender. She was started on antibiotics by her primary care physician. She says that the area started draining about 4 days ago. She now feels better on the area. She still has a little bit of drainage. [facility] Medical History (Updated 11/20/23 @ 14:33 by Vik Ochoa MD) Back abscess Elevated cholesterol delivery delivered Diabetes Hypertension Surgical History History of dilatation and curettage History of hysteroscopy Hx of section Tubal ligation status Family History Paternal Grandmother Colon cancer Maternal Grandfather FH: throat cancer Social History Alcohol intake: never Sexual orientation: Straight/Heterosexual Gender identity: Female Review of Systems Const Denies chills and Denies fever(s) Card Denies chest pain, Denies dyspnea and Denies dyspnea on exertion Resp Denies cough, Denies dyspnea and Denies dyspnea on exertion GI Denies hematochezia and Denies change in bowel habits Denies hematuria Musc Denies back pain and Denies limited range of motion Neuro Denies focal weakness and Denies convulsions Psych Denies depression and Denies mood swings Physical Exam Const General: comfortable and no acute distress Orientation/consciousness: patient oriented x3 Neck Neck: Yes no lymphadenopathy Resp Auscultation: clear to auscultation bilaterally Cardio Rhythm: regular rhythm GI Palpation (GI): Soft to palpation, nontender and no guarding Back/Spine/Pelvis Other: Open wound, about 0.5 cm in diameter, scanty drainage, some skin discoloration surrounding this but no residual fluctuance Neuro General: patient oriented x3 Assessment & Plan Assessment & Plan (1) Back abscess: Code(s): L02.212 - Cutaneous abscess of back [any part, except buttock] Plan: She had what appears to be a back abscess from an infected cyst and this had drained spontaneously. I probed the area with a Q-tip. The abscess cavity in the subcutaneous layer is empty. I applied dressings and have instructed her on daily wound care. She is to complete her course of oral antibiotics. She can follow up on a p.r.n. basis. I told her that we do not need to do an I and D at this time as the cavity has drained on its own. Coding Level of Care Code New Pt Level 3 (76401) Diagnoses Back abscess L02.212
[2023-11-20 14:21] VITALS: BP 95/51; PULSE 88
== END 2023-11-20 14:34 | disposition home or self-care (01) ==
PROVIDERS: PCP Internal Medicine Medical Oncology; Visit Provider Surgery
DX: L02.212 Cutaneous abscess of back [any part, except buttock and flank] (principal)
CPT/HCPCS: 99203

== ENCOUNTER → 2023-11-20 14:07 | Outpatient (BNVA) | payer OTHER, SELFPAY | PROVIDERS: PCP Internal Medicine Medical Oncology; Visit Provider Surgery | DX: L02.212 Cutaneous abscess of back [any part, except buttock and flank] (principal) | CPT/HCPCS: 99202 ==

== ENCOUNTER 2024-02-07 09:35 | Outpatient (REF) | payer OTHER, SELFPAY | END 2024-02-07 09:36 | disposition home or self-care (01) | LOC: HO.MAMMO 09:35 | PROVIDERS: PCP Internal Medicine Medical Oncology; Visit Provider Internal Medicine Medical Oncology | DX: Z12.31 Encounter for screening mammogram for malignant neoplasm of breast (principal) | CPT/HCPCS: 77063; 77067 ==

== ENCOUNTER → 2024-02-07 10:00 | Outpatient (BNV) | payer OTHER, SELFPAY | PROVIDERS: PCP Internal Medicine Medical Oncology; Visit Provider Radiology Diagnostic Radiology | DX: Z12.31 Encounter for screening mammogram for malignant neoplasm of breast (principal) | CPT/HCPCS: 77063; 77067 ==

== ENCOUNTER 2024-10-02 09:34 | Outpatient (REF) | payer OTHER, SELFPAY ==
[2024-10-02 09:45] LABS: MANUAL DIFF FLAG NO
[2024-10-02 10:03] LABS: Basophils Percent Auto 0.4 % (0-2); Eosinophils Absolute Auto 0.3 X10*3/uL (0.0-0.4); Eosinophils Percent Auto 3.5 % (0-4); Hematocrit 38.5 % (37.0-47.0); Hemoglobin 12.8 g/dl (12.0-16.0); Imm Gran Abs Auto 0.08 X10*3/uL (0.00-0.03); Imm Gran Pct Auto 1.1 % (0.0-0.4); Lymphocytes Absolute Auto 2.3 X10*3/uL (1.2-4.9); Lymphocytes Percent Auto 32.4 % (20-40); Mean Corpuscular HGB Conc 33.2 g/dl (31.0-35.0); Mean Corpuscular Hemoglobin 28.4 pg (27.0-33.0); Mean Corpuscular Volume 85.4 fL (80.0-98.0); Mean Platelet Volume 11.7 fL (9.4-12.3); Monocytes Absolute Auto 0.6 X10*3/uL (0.1-1.2); Monocytes Percent Auto 8.6 % (2-11); Neutrophils Absolute Auto 3.9 x10*3/uL (2.0-8.3); Platelet Count 232 X10*3/uL (160-400); Red Blood Count 4.51 X10*6/uL (4.20-5.50); Red Cell Distribution Width 12.9 % (11.0-16.0); White Blood Count 7.2 X10*3/uL (4.8-10.8)
[2024-10-02 10:15] LABS: Estimated Average Glucose 194 mg/dL; Hemoglobin A1C 220.6792 umol/L; Hemoglobin A1c % 8.4 % (<6.0)
[2024-10-02 10:33] LABS: Creatinine Urine 157.46 mg/dL; Microalbum/Creatinine Ratio Ur 32.3 ug/mg cr (<30)
[2024-10-02 10:33] LABS: Alanine Aminotransferase 67 U/L (0-31); Albumin Level 4.2 g/dL (3.5-5.0); Alkaline Phosphatase 109 U/L (39-117); Anion Gap 12 (12-20); Aspartate Amino Transferase 40 U/L (5-31); Bilirubin Total 0.5 mg/dL (0.0-1.0); Blood Urea Nitrogen 11 mg/dL (9-16); Calcium 10.8 mg/dL (8.4-10.2); Carbon Dioxide 25 mmol/L (22-29); Chloride 107 mmol/L (96-108); Cholesterol 234 mg/dL (<200); Estimated Glomerular Filt Rate > 60; Glucose Fasting 254 mg/dL (60-99); HDL Cholesterol 40 mg/dL (>40); LDL Cholesterol Calculated 149 mg/dL (<100); Potassium 3.9 mmol/L (3.3-5.1); Sodium 140 mmol/L (135-145); Total Protein 6.9 g/dL (6.5-8.0); Triglycerides 225 mg/dL (<150)
== END 2024-10-02 09:35 | disposition home or self-care (01) ==
LOC: HO.LAB 09:34
PROVIDERS: PCP Internal Medicine Medical Oncology; Visit Provider Internal Medicine Medical Oncology
DX: T14.8XXA Other injury of unspecified body region, initial encounter (principal); I10 Essential (primary) hypertension; E66.9 Obesity, unspecified; E78.2 Mixed hyperlipidemia; E11.8 Type 2 diabetes mellitus with unspecified complications
CPT/HCPCS: 36415; 80053; 80061; 82043; 82570; 83036; 85025

== ENCOUNTER 2024-12-25 09:22 | Outpatient (REF) | payer OTHER, SELFPAY ==
--- OUTSIDE RECORDS SUMMARY | 2024-12-25 09:25 | XMS_ITS ---
Author Organization Gerald Treviño III, MD Address [address] [place] [address] Care Team Providers Care Relief Pilot Name Role Phone Gerald Treviño Primary Care Provider Allergies Allergen (clinical drug [...] Panel Reviewed date:11/26/2024 04:15:45 PM Interpretation: Performing Lab:[facility], [address] [place] [address] Notes/Report: Triglycerides 225 <150 mg/dL Desirable Triglyceride: [...] A1c Reviewed date:11/26/2024 04:15:45 PM Interpretation: Performing Lab:[facility], [address] [place] [phone] Notes/Report: Hemoglobin A1c % 8.4 <6.0 % [...] average glucose, using the formula of the N2C-Tpavlbe Average Glucose study (ADAG), Diabetes Care, Vol.31,#8, Jul. 2007 Reason For Referral Reason 5 year colonoscopy Diagnosis 1 Adenomatous polyp of colon, unspecified part of colon (D12.6) Referral Organization Gerald Treviño III, MD Referring Provider First Name Gerald Referring Provider Last Name Hudson Referring Provider Speciality Internal M edicine Referred Provider Gerald Ospina Referred Provider Specialty Gastroentero logy General Notes Sofy Regan CMA 09/30 10:49:52 [...] Referring Provider Speciality Internal edicine Referred Organization [facility]ter Referred Provider [facility] Referred Address [address] [place] [address],[place], [place],[id number], Referred Provider Specialty OB - Gynecol ogy [...] Date Provider Diagnosis Gerald Treviño III, MD [address] [place] [address] DR [place], YENNY [address] 09/30/2024 Gerald Treviño Obesity (BMI 30.0-34 .9) E66.9 ; Type 2 diabetes mellitus with complication, unspecified whether [facility] insulin use E11.8 ; Mixed hyperlipidemia E78.2 [...] 2 diabetes mellitus with complication, unspecified whether [facility] insulin use (ICD-10 - E11.8) I have [...] 09/30/2024 09/30/2024, 5 year c olonoscopy, Gerald Ospina 09/30/2024 09/30/2024, chuckie cantrell, [facility], [address] [place] [address], [place], [place], [phone], Next Appt Details Follow Up: 3 Months, In thre e months, Reason: ov review labs, Follow-up Provider Name:Gerald Treviño, 12/29/2024 04:00:00 PM, [address] [place] [address] [address], [place], [address], Provider Name:Gerald Treviño, 10/05/2025 09:30:00 AM, [address] [place] [address] [address], [place], [address], Progress Notes * Eve VERASDOB:[birth year] (64 yo F)Acc No.[id number]:09/30/2024 Progress Notes Patient:?Eve VERAS Provider:?Gerald Treviño MD :1960???Age:64 Y???Sex:Female D ate:09/30/2024 Address:[address] [place], [place] [phone] Subjective: * Chief Complaints: * ???Annual Exam * HPI: ???Depression Screening:?PHQ-9?Little interest or pleasure in doing things?More than half the days ?Feeling down, depressed, or hopeless?Not at all ?Trouble falling or staying asleep, or sleeping too much?Nearly every day ?Feeling tired or having little energy?Nearly every day ?Poor appetite or overeating?Nearly every day ?Feeling bad about yourself or that you are a failure, or have let yourself or your family down?More than half the days ?Trouble concentrating on things, such as reading the newspaper or watching television?Nearly every day ?Moving or speaking so slowly that other people could have noticed; or the opposite, being so fidgety or restless that you have been moving around a lot more than usual?More than half the days ?Thoughts that you would be better off or of hurting yourself in some way?Not at all ?Total Score?18 ?Interpretation?Moderately Severe Depression ???COVID-19 Screening:?Questions?Have you experienced fever, chills, cough, sore throat, shortness of breath, difficulty breathing, muscle aches, loss of taste or smell??No ?Have you been exposed to the virus within the last 10 days??No ?Have you travelled internationally in the last 10 days??No ?Have you been exposed to COVID-19 in the past??Yes ???SDOH Questions:?SDOH Questions?In the past year have you been worried about losing your housing??No ?In the past year have you or any family members you live with been unable to get any of the following when it was really needed? Check all that apply:?Decline to answer ???:? The patient, a 64-year-old female, came in [...] She also reported occasional knee pain. * ROS:?General/Constitutional:?pain?left knee, otherwise only normal aches and pains.?Chills?denies.?Fatigue?admits.?Fever?denies.?ENT:?Decreased hearing?denies.?Respiratory:?Cough?denies.?Cardiovascular:?Chest pain with exertion?denies.?Dyspnea on exertion?denies.?Shortness of breath?denies.?Gastrointestinal:?Constipation?occasional.?Decreased appetite?denies.?Diarrhea?denies.?Heartburn?denies.?Nausea?denies.?Rectal bleeding?denies.?Vomiting?denies.?Hematology:?bruising?denies.?petechiae?denies.?Swollen glands?none have been noted.?Genitourinary:?Frequent urination?at night.?Musculoskeletal:?Muscle aches?denies.?Painful joints?denies.?Sciatica?denies.?Weakness?denies.?Skin:?Itching?denies.?Rash?denies.?Skin lesion(s)?denies.?Neurologic:?Difficulty speaking?denies.?Dizziness?denies.?Headache?denies.?Low back pain?denies.?Psychiatric:?Depressed mood?denies.? * Medical History:? * Surgical History:? s ection X2 tubal ligation colonoscopy, Dr. Ospina 01/2019Uterus biopsy [facility] 10/2020No history * Hospitalization/Major Diagno stic Procedure:?No history * Family History:?Father: dece ased 73 yrs, Diabetes mellitus, hypertension, diagnosed with HTN, DM.?Mother: 65 yrs, Liver cancer, hypertension, diagnosed with HTN, Cancer.?Siblings: alive, diagnosed with Hyperlipidemia.?Paternal Grand Mother: , diagnosed with Cancer.?Maternal Grand Mother: , diagnosed with Cancer.?2 brother(s) , 2 sister(s) . 2 son(s) - healthy. .? Her siblings have hyperlipidemia, restless leg syndrome, osteoarthritis and sleep apnea. A paternal grand mother had bowel cancer. Another had lung cancer. The patient's children are alive and well and healthy. She is not aware of any family history of mental illness or substance use disorder or addiction. Brother from hear failure. * Social History:?Tobacco Use:?Tobacco Control (Standard)?Tobacco use:?Former smoker ?How long has it been since you last smoked??Greater than 10 years ?Additional Findings: Tobacco non-user?Ex-cigarette smoker ???Drugs/Alcohol:?Drugs?Have you used drugs other than those for medical reasons in the past 12 months??No ???Drug/Alcohol:?AUDIT-C (Standard)?Did you have a drink containing alcohol in the past year??No ?Points?0 ?Interpretation?Negative ???She was born in [place] and moved to [facility] when she was 8 years old. She was raised in [place]. She has 2 sons, Michael 34 years old and juan jose 30 years old, who are alive and well. She has no grandchildren. * Medications:?TakingFreeStyle Lite Test - Strip - In Vitro [...] reviewed and reconciled with the patient * Allergies:?No Known Drug All ergyno[Allergies Verified] Objective: * Vitals:?Ht: 61, Wt: 171, BMI :32.31, BP: 133/67, HR: 72, Temp: 98.2, Wt-k.56. * Examination: ???General Examination: ?GENERAL APPEARANCE:?pleasant, well nourished, well developed, in no acute distress, calm and relaxed, obese, man.?HEAD:?atraumatic, normocephalic.?EYES:?eomi, perrla, anicteric, conjugate.?EARS:?normal.?NOSE:?septum intact.?ORAL CAVITY:?normal, unremarkable.?NECK/THYROID:?no jugular venous distention, no carotid bruit, thyroid normal.?LYMPH NODES:?no enlarged lymph nodes,spleen normal.?SKIN:?no suspicious lesions, anicteric.?HEART:?no clicks, gallops, murmurs, or rubs, regular rhythm, S1, S2 normal, no s3, or vascular bruits.?LUNGS:?clear to auscultation .?BREASTS:?Not examined.?ABDOMEN:?bowel sounds normal, no ascites, no organomegaly, no mass, centripital obesity.?RECTAL EXAM:?not examined.?MUSCULOSKELETAL:?extremities unremarkable, no clubbing, cyanosis or edema.?PERIPHERAL PULSES:?normal.?NEUROLOGIC:?alert and oriented, cranial nerves 2-12 grossly intact, deep tendon reflexes 2+ symmetrical, motor strength normal upper and lower extremities, sensory exam intact.?PSYCH:?alert, oriented.? : ???Heart and Lungs:Healthy, Skin: Few skin tags, no concern, Weight: Gained 5 lbs since December. ??? Assessment: * Assessment: 1.?Type 2 diabetes mellitus with complication, unspecified whether rodent exterminator insulin use - E11.8 (Primary)???Notes :I have ordered a hemoglobin A1c and microalbumin and fasting glucose.? This will be done in near future.???2.?Obesity (BMI 30.0-34.9) - E66.9???Notes :She has gained 6 pounds and her body mass index is now 32.3.? We discussed her diet and nutrition.? We reviewed her weight loss strategy.? We made a plaan to lose weight at a rate of one half of a pound per week through a diet restricted in fat calories and sodium combined with regular exercise.???3.?Mixed hyperlipidemia - E78.2???Notes :Current blood work is unavailable.? I have ordered comprehensive lab work which will include a fasting lipid profile.???4.?Encounter for immunization - Z23???Notes :She received influenza vaccine today without complications.???5.?Essential hypertension - I10???Notes :Her blood pressure Is stable.. We are going to work on weight reduction, sodium restriction, and control of diabetes.???6.?Carpal tunnel syndrome, right - G56.01???Notes :The pain in her wrist has improved and is not a significant problem today. She is more focused upon shoulder pain.???7.?Intramural leiomyoma of uterus - D25.1???8.?Stress incontinence of urine - N39.3???Notes :He is occasionally incontinent. This problem has not worsened. We discussed a referral to urology, and she will consider it.???9.?Former smoker - Z87.891???Notes :We have discussed a plan to prevent relapse in times of stress and illness.??? Plan: * Treatment: ? Value Reference Range ?Triglycerides 225 H <150 - mg /dL * ?Cholesterol 234 H <200 - mg/d L * ?LDL Cholesterol Calculated 149 H <100 - mg/dL * ?HDL Cholesterol 40 L >40 - m g/dL ?LAB: Hemoglobin A1c (Collection Date & Time - 10/02/2024 09:44 AM)* ? Value Reference Range ?Hemoglobin A1c % 8.4 H <6.0 - % * ?Estimated Average Glucose 194 - mg/dL 2.?Obesity (BMI 30.0-34.9)?LAB: PROFILE, FASTING (COMPREHENSIVE METABOLIC) ?LAB: MICROALBUMIN, RANDOM ?LAB: CBC w DIFF ?LAB: Lipid Panel (Collection Date & Time - 10/02/2024 09:44 AM)* ? Value Reference Range ?Triglycerides 225 H <150 - mg /dL * ?Cholesterol 234 H <200 - mg/d L * ?LDL Cholesterol Calculated 149 H <100 - mg/dL * ?HDL Cholesterol 40 L >40 - m g/dL ?LAB: Hemoglobin A1c (Collection Date & Time - 10/02/2024 09:44 AM)* ? Value Reference Range ?Hemoglobin A1c % 8.4 H <6.0 - % * ?Estimated Average Glucose 194 - mg/dL 3.?Mixed hyperlipidemia?LAB: PROFILE, FASTING (COMPREHENSIVE METABOLIC) ?LAB: MICROALBUMIN, RANDOM ?LAB: CBC w DIFF ?LAB: Lipid Panel (Collection Date & Time - 10/02/2024 09:44 AM)* ? Value Reference Range ?Triglycerides 225 H <150 - mg /dL * ?Cholesterol 234 H <200 - mg/d L * ?LDL Cholesterol Calculated 149 H <100 - mg/dL * ?HDL Cholesterol 40 L >40 - m g/dL ?LAB: Hemoglobin A1c (Collection Date & Time - 10/02/2024 09:44 AM)* ? Value Reference Range ?Hemoglobin A1c % 8.4 H <6.0 - % * ?Estimated Average Glucose 194 - mg/dL 4.?Essential hypertension?LAB: PROFILE, FASTING (COMPREHENSIVE METABOLIC) ?LAB: MICROALBUMIN, RANDOM ?LAB: CBC w DIFF ?LAB: Lipid Panel (Collection Date & Time - 10/02/2024 09:44 AM)* ? Value Reference Range ?Triglycerides 225 H <150 - mg /dL * ?Cholesterol 234 H <200 - mg/d L * ?LDL Cholesterol Calculated 149 H <100 - mg/dL * ?HDL Cholesterol 40 L >40 - m g/dL ?LAB: Hemoglobin A1c (Collection Date & Time - 10/02/2024 09:44 AM)* ? Value Reference Range ?Hemoglobin A1c % 8.4 H <6.0 - % * ?Estimated Average Glucose 194 - mg/dL 5.?Others? Continue [...] To:Gerald Ospina??Gastroenterology ?Reason:5 year colonoscopy ? Referral To:[facility]??OB - Gynecology ?Reason:incontience * Immunizations:? Influenza Vaccine Afluria : 0.5 mL (Dose No:1) (Route: Intramuscular) given by Neha Goldberg on Left Arm (Encounter for immunization) ???Immunization record has been reviewed and updated. * Labs:? * ?Lab: URINE DIP STICK (C ollection Date & Time - 09/30/2024) ? Value Reference Range ?SG 1.020 1.005 - 1.025 * ?pH 5.0 5.0 - 9.0 * ?EMMETT Negative Negative - * ?NIT Negative Negative - * ?PRO 15 Negative - Trac e * ?GLU 1000 Negative - * ?KET 5 Negative - * ?UBG 0.2 0.1 - 1.8 * ?KEEGAN Negative 0.2 - 1.3 * ?BLD Negative Negative - * Procedure Codes:?83490 URINE -NO [id number] CCIIV4 VAC NO PRSV 0.5 ML [id number] FLU VACC 4 HAIDER 3 YRS PLUS IM * Preventive Medicine:? ??Counseling:?Care goal follow-up plan:?Counseling for abnormal BMI given?Yes ?Above Normal BMI Follow-up?Dietary management education, guidance, and counseling, Dietary needs education, Exercise promotion: strength training, Exercise promotion: stretching, Feeding regime, Giving encouragement to exercise, Lifestyle education regarding diet, Nutrition / feeding management, Nutrition therapy, Prescribed activity/exercise education, Prescribed diet education, Prescribed dietary intake, Special diet education, Weight monitoring , Intervention, Order not done: Medical or Other reason not done ?Smoking/Tobacco Use?Patient counseled on the dangers of tobacco use and urged to quit.?09/30/2024 ??DM Care Plan:?Patient Lifestyle Goals?Patient wants to be able to manage diabetes without too much effort.?Treatment Goals?HbA1C < 7.0, Blood Sugars less than < 115.?Barriers?no barriers.?Self-Managment Goals?Work on weight loss, with a goal of losing 1 lb per week.? * Follow Up:?3 Months, In thre e months (Reason: ov review labs, Follow-up) * Images: * Sign off status: Completed true * Provider:?Gerald Treviño MD Date:?09/02 Generated for Carrie leyva/Kadeem/eTmariesmitting on:?12/25/2024 09:25 AM EST History and Physical Notes * [...] Have you been exposed to the virus with n the last 10 days?: No Have you travelled internationally in [facility] last 10 days?: No Have you been [...] Referring Provider Referred Provider Not es 09/30/2024 eGrald Treviño Robert 5 year colono scopy 09/30/2024 Gerald Treviño [facility], [facility] O[facility] incontience
--- OUTSIDE RECORDS SUMMARY | 2024-12-25 09:25 | XMS_ITS | Patient Health Record ---
Author Organization [facility] Address [address] [place] [address] Care Team Providers Care Size Stamper Name Role Phone Gerald Treviño MD Primary Care Provider Unavailab Gerald York Unavailable [phone] REASON FOR REFERRAL No Information MEDICATIONS Medication SIG (Take, Route, Frequency, Duration) Notes Start Date End Date Status Dulcolax (colon prep) 5 MG take at 3:00 p.m and 7:00p.m. Orally two tablets twice a day for one day for 1 day 12/17/2018 Active Simvastatin 10 MG 1 tablet in the evening Orally Once a day for 30 day(s) Active MiraLax (colon prep) 8.3 oun ce ((238) grams mixed with Gatorade or Crystal Light orally begin at 5:00 p.m. the day before the procedure for 1 day 12/17/2018 Active hydroCHLOROthiazide 25 MG 1 tablet Orall y Once a day Active glipiZIDE 5 MG 1 tablet Orally twic e a day Active metFORMIN HCl 500 MG 1 tablet with a roberto l Orally twice a day Active Lisinopril 10 MG 1 tablet Orally Once a day for 30 day(s) Active IMMUNIZATIONS Vaccine Route Administration Date Status Comme nts Influenza Unknown 12/16/2018 Refused SOCIAL HISTORY Tobacco Use: Social History Observation Description Date Details (start date - stop date) Former Smoker NA - NA Sex Assigned At : Social History Observation Description Sex Assigned At Unknown Tobacco Use/Smoking Question Answer Notes Patient is a former smoker How long has it been since you last smoked? 1-5 years PROBLEMS Problem Type ICD Code Onset Dates Problem Status W/U Status Risk SNOMED Code Notes Problem Encounter for screening for malignant neoplasm of colon (Z12.11) Active confirmed 899030173 Problem Hx of adenomatous colonic polyps (Z86.010) Active confirmed 533856942 Problem Pre-procedural examination (Z01.818) Active confirmed [id number] PLAN OF TREATMENT Pending Test Test Name Order Date GI BIOPSY 01/22/2019 Future Test Test Name Order Date COLONOSCOPY 05/11/2013 COLONOSCOPY 12/16/2018 Next Appt Details Provider Name:Gerald Ospian , 01/12/2025 04:00:00 PM, [address], [address], [place], [address], Insurance Providers Payer Name Payer Address Payer Phone Subscriber Number Group Number Insured Name Patient Relationship to Insured Coverage Start Date Coverage End Date [facility] [address] [place] [address] [id number] JOSE VERAS Self - patient is the insured MEDICAL (GENERAL) HISTORY Medical History History ICD Code Colonoscopy 01/2010 and 3 with me--diverticulosis and internal hemorrhoids--no polyps Multiple tubular adenomas re moved by Dr. Poe in 12/2005---1 was > 3 cm; F/U colon in 03/2006 with only 1 small tubular adenoma Hyperlipidemia-on no meds at present delisa e HTN Denies RI,CVA,Lung disease,renal disease NIDDM Surgical History Surgery Date(Month/Year) 2 C-sections BTL
--- OUTSIDE RECORDS SUMMARY | 2024-12-25 09:26 | XMS_ITS ---
Author Organization Gerald Treviño III, MD Address [address] [place] [address] Care Team Providers Care Customer Service Rep Name Role Phone Gerald Treviño Primary Care Provider Medications Medication SIG (Take, Route, Frequency, Duration) Notes Start Date End Date Status hydroCHLOROthiazide 25 MG 1 tablet Orall y Once a day for 90 days 09/27/2024 09/22/2025 Active Social History Sex Assigned At : Social History Observation Description Sex Assigned At Female Encounters Encounter Location Date Provider Diagnosis Gerald Treviño III, MD [address] [place] [address] [place] [address] 09/27/2024 Gerald Treviño Plan Of Treatment Medication Medication Name Sig Start Date Stop Date Notes hydroCHLOROthiazide 25 MG 1 tablet Orall y Once a day for 90 days 09/27/2024 09/22/2025 Next Appt Details Provider Name:Gerald Treviño, 12/29/2024 04:00:00 PM, [address] [facility], [address], Provider Name:Gerald Treviño, 10/05/2025 09:30:00 AM, [address] [facility] [place], [address], Progress Notes * Eve VERASDOB:[birth year] (64 yo F)Acc No.[id number]:09/27/2024 Patient:?EDA Eve :1960???Age:64 Y???Sex:Female Address:[address] [place] [address], [address], [place], [address] * Refills? Start hydroCHLOROthiazide Tablet, 25 MG, Orally, 90 Tablet, 1 tablet, Once a day, 90 days, Refills=3 * true * Date:? Generated for Carrie leyva/Kadeem/Joseitting on:?12/25/2024 09:25 AM EST
[2024-12-25 09:32] LABS: MANUAL DIFF FLAG NO
[2024-12-25 09:37] LABS: Basophils Absolute Auto 0.1 X10*3/uL (0.0-0.2); Basophils Percent Auto 0.6 % (0-2); Eosinophils Absolute Auto 0.3 X10*3/uL (0.0-0.4); Eosinophils Percent Auto 3.6 % (0-4); Hemoglobin 13.2 g/dl (12.0-16.0); Imm Gran Abs Auto 0.14 X10*3/uL (0.00-0.03); Imm Gran Pct Auto 1.8 % (0.0-0.4); Lymphocytes Percent Auto 38.2 % (20-40); Mean Corpuscular Hemoglobin 28.3 pg (27.0-33.0); Mean Corpuscular Volume 85.7 fL (80.0-98.0); Mean Platelet Volume 11.3 fL (9.4-12.3); Monocytes Absolute Auto 0.6 X10*3/uL (0.1-1.2); Monocytes Percent Auto 7.5 % (2-11); Neutrophils Absolute Auto 3.7 x10*3/uL (2.0-8.3); Neutrophils Percent Auto 48.3 % (45-73); Platelet Count 226 X10*3/uL (160-400); Red Blood Count 4.67 X10*6/uL (4.20-5.50); Red Cell Distribution Width 12.9 % (11.0-16.0); White Blood Count 7.7 X10*3/uL (4.8-10.8)
[2024-12-25 09:57] LABS: Estimated Average Glucose 203 mg/dL; Hemoglobin A1C 246.8959 umol/L; Hemoglobin A1c % 8.7 % (<6.0); Total Hemoglobin (HGBA1C) 3426.3851 umol/L
[2024-12-25 10:11] LABS: Alanine Aminotransferase 75 U/L (0-31); Albumin Level 4.3 g/dL (3.5-5.0); Alkaline Phosphatase 126 U/L (39-117); Anion Gap 11 (12-20); Aspartate Amino Transferase 43 U/L (5-31); Bilirubin Total 0.4 mg/dL (0.0-1.0); Blood Urea Nitrogen 16 mg/dL (9-16); Calcium 10.7 mg/dL (8.4-10.2); Carbon Dioxide 25 mmol/L (22-29); Chloride 107 mmol/L (96-108); Cholesterol 225 mg/dL (<200); Estimated Glomerular Filt Rate > 60; Glucose Fasting 212 mg/dL (60-99); HDL Cholesterol 38 mg/dL (>40); LDL Cholesterol Calculated 144 mg/dL (<100); Sodium 139 mmol/L (135-145); Total Protein 7.2 g/dL (6.5-8.0); Triglycerides 219 mg/dL (<150)
[2024-12-25 11:43] LABS: Creatinine Urine 125.69 mg/dL; Microalbum/Creatinine Ratio Ur 23.8 ug/mg cr (<30)
== END 2024-12-25 09:23 | disposition home or self-care (01) ==
LOC: HO.LAB 09:22
PROVIDERS: PCP Internal Medicine Medical Oncology; Visit Provider Internal Medicine Medical Oncology
DX: T14.8XXA Other injury of unspecified body region, initial encounter (principal); I10 Essential (primary) hypertension; E66.9 Obesity, unspecified; E78.2 Mixed hyperlipidemia; E11.8 Type 2 diabetes mellitus with unspecified complications
CPT/HCPCS: 36415; 80053; 80061; 82043; 82570; 83036; 85025

== ENCOUNTER 2025-04-15 13:45 | Emergency (ER) | payer MEDICAID, SELFPAY ==
--- NOTE | 2025-04-15 14:10 | ED_ITS ---
HPI - Neck Pain/Injury General Chief Complaint: Neck Pain/Injury Stated Complaint: Neck L Shoulder Arm Pain Time Seen by Provider: 04/15/25 16:36 Source: patient Mode of arrival: ambulatory Limitations: no limitations History of Present Illness ED Provider: Dr. Acacia Whitmore HPI Narrative: Patient comes to the emergency room complaining of couple of days of left-sided neck pain shoulder pain and suprascapular pain. Patient states she woke up with the pain. Patient states that if she does not move she has no pain but if she turns her head towards the left she can feel some pressure and pain over the suprascapular area. Patient denies any falls any injuries, denies chest pain or shortness of breath. Related Data Home Medications ?Medication ?Instructions ?Recorded ?Confirmed metformin 500 mg tablet 500 mg PO BID 09/26/20 10/30/20 glipizide 5 mg tablet 5 mg PO BID 10/30/20 10/30/20 hydrochlorothiazide 25 mg tablet 25 mg PO QAM 10/30/20 10/30/20 lisinopril 10 mg tablet 10 mg PO DAILY 10/30/20 10/30/20 simvastatin 10 mg tablet 10 mg PO BEDTIME 10/30/20 10/30/20 Previous Rx's ?Medication ?Instructions ?Recorded acetaminophen 650 mg 650 mg PO Q8H PRN pain #30 tabs 11/02/20 tablet,extended release (Tylenol 8 Hour) ibuprofen 800 mg tablet 800 mg PO Q8H PRN pain #30 tabs 11/02/20 fluconazole 150 mg tablet 150 mg PO ONCE PRN personal 1 day 03/11/22 (Diflucan) #1 tab cephalexin 500 mg capsule 500 mg PO BID 7 days #14 caps 10/03/22 doxycycline hyclate 100 mg capsule 100 mg PO BID #14 caps 10/03/22 ibuprofen 600 mg tablet 600 mg PO Q6H PRN fever or pain 10/07/22 #30 tabs cyclobenzaprine 5 mg tablet 5 mg PO TID PRN muscle spasm #10 04/15/25 tabs ibuprofen 600 mg tablet 600 mg PO Q8H PRN fever or pain 04/15/25 #20 tabs Allergies Allergy/AdvReac Type Severity Reaction Status Date / Time No Known Allergies Allergy Verified 04/15/25 14:11 Review of Systems Review of Systems: Constitutional : No Weight loss, No Fever, No Chills, No Night Sweats, No Fatigue, No Malaise ENT/Mouth : No Hearing loss, No Ear Pain, No Nasal Congestion, No Sinus Pain, No Hoarseness, No sore throat, No Rhinorrhea, No Swallowing Difficulty Eyes: No Eye Pain, No Swelling, No Redness, No Foreign Body, No Discharge, No Vision Changes Cardiovascular : No Chest Pain, No SOB, No Dyspnea on Exertion, No Orthopnea, No Edema, No Palpitations Respiratory : No Cough, No Sputum, No Wheezing, No Smoke Exposure, No Dyspnea Gastrointestinal : No Nausea, No Vomiting, No Diarrhea, No Constipation, No abdominal Pain, No Hematochezia, No Melena Genitourinary : no irregular bleeding, No Dysuria, No Urinary Frequency, No Hematuria, No Urinary Incontinence, No Urgency, No Flank Pain, No Urinary Flow Changes, No Hesitancy Musculoskeletal : Complaining of muscular pain in the upper back on the left and left-sided neck pain with movement Skin : No Skin Lesions, No rash Neuro : No Weakness, No Numbness, No Paresthesias, No Loss of Consciousness, No Dizziness, No Headache Psych : No Anxiety/Panic, No Depression, No SI/HI/AH/VH, No Social Issues, Heme/Lymph: No Bruising, No Bleeding,No Lymphadenopathy Endocrine : No Polyuria, No Polydipsia, No Temperature Intolerance PMFSH Past Medical History Medical History Back abscess Elevated cholesterol delivery delivered Diabetes Hypertension Surgical History History of dilatation and curettage History of hysteroscopy Hx of section Tubal ligation status Family History Family History Paternal Grandmother Colon cancer Maternal Grandfather FH: throat cancer Social History Social History Alcohol intake: never Advance Directives: No Advance Directives Information Provided: Yes Do you have a plan to hurt others: No Plan Sexual orientation: Straight/Heterosexual Gender identity: Female Physical Exam Vital Signs: Vital Signs: Last Vital Signs Temp 97.0 F 04/15/25 14:11 Pulse 75 04/15/25 14:11 Resp 18 04/15/25 14:11 BP 160/85 H 04/15/25 14:11 Pulse Ox 96 04/15/25 14:11 O2 Del Method Room Air 04/15/25 14:11 BMI result Body Mass Index 34.4 Const: Other: Appearance: Alert. Oriented X3. No acute distress. Eyes: Pupils equal, round and reactive to light. ENT: Pharynx normal. Neck: Normal inspection. Neck supple. No lymph nodes noted. No crepitus, muscle spasms palpable over the left side of the neck CVS: Normal heart rate and rhythm. Pulses normal. Normal S1 and S2 Respiratory: No respiratory distress. Breath sounds normal. No Wheezing. No rales Abdomen: Soft and nontender. No rigidity. No distention back: Reproducible pain to palpation over the suprascapular area on the left side Skin: Skin warm and dry. Normal skin color. Normal skin turgor. Extremities: No lower extremity edema. No Lacerations. No Rash Neuro: Oriented X 3. No motor deficit. No sensory deficit. Moving all extremities. No slurred speech. CN 2 through 12 grossly intact Psych: calm, cooperative, normal affect Course Course Course Narrative: This is a Rapid Medical Exam performed in triage by Courtney Munoz PA-C. Full HPI, ROS and PE to be performed by primary ED provider. 64 yo F w/PMHx HLD, HTN, DM presenting to the ED c/o neck pain & stiffness x Friday s/p waking up. denies injury/trauma/fall PE: +neck stiffness, non-meningeal, no midline spinous ttp, +pain with leftward motion Plan: pain control Medications Administered Discontinued Medications Generic Name Dose Route Start Last Admin Trade Name Al PRN Reason Stop Dose Admin Diazepam 2 mg 04/15/25 16:42 04/15/25 18:16 Diazepam 2 Mg Tablet PO 04/15/25 16:43 2 mg ONCE ONE Administration Medical Decision Making Medical Decision Making [facility] Narrative: my interpretation of EKG: Normal sinus rhythm, heart rate 64, no ST segment depression or elevation, no T-wave inversion, QTC 404 patient was given a dose of p.o. diazepam. Patient feeling a bit better. Patient will be sent home with a prescription for muscle relaxants. Patient agrees with plan Discharge Plan Discharge Clinical Impression: Acute torticollis Patient Disposition: Home, Self-Care Instructions: Neck Pain (ED) Additional Instructions: Please follow-up with your primary care physician tomorrow. If you have any worsening or new symptoms, please return to the emergency room or call 911 Prescriptions: New cyclobenzaprine 5 mg tablet 5 mg PO TID PRN (Reason: muscle spasm) Qty: 10 0RF ibuprofen 600 mg tablet 600 mg PO Q8H PRN (Reason: fever or pain) Qty: 20 0RF No Action lisinopril 10 mg tablet 10 mg PO DAILY hydrochlorothiazide 25 mg tablet 25 mg PO QAM glipizide 5 mg tablet 5 mg PO BID simvastatin 10 mg Tablet 10 mg PO BEDTIME ibuprofen 800 mg tablet 800 mg PO Q8H PRN (Reason: pain) Qty: 30 0RF acetaminophen [Tylenol 8 Hour] 650 mg tablet extended release 650 mg PO Q8H PRN (Reason: pain) Qty: 30 0RF Rx Instructions: Take four hours after ibuprofen ibuprofen 600 mg tablet 600 mg PO Q6H PRN (Reason: fever or pain) Qty: 30 0RF doxycycline hyclate 100 mg capsule 100 mg PO BID Qty: 14 0RF cephalexin 500 mg capsule 500 mg PO BID 7 Days Qty: 14 0RF metformin 500 mg tablet 500 mg PO BID fluconazole [Diflucan] 150 mg tablet 150 mg PO ONCE PRN (Reason: personal) 1 Days Qty: 1 1RF Print Language: Montserratian
[2025-04-15 14:11] VITALS: BP 160/85; PULSE 75; RESP 18; TEMP 36.1; O2SAT 96; BMI 34.4
--- OUTSIDE RECORDS SUMMARY | 2025-04-15 16:39 | XMS_ITS ---
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 Hazela ter than 10 years Additional Findings: Tobacco non-user Ex-cigaret te smoker Encounters Encounter Location Date Provider Diagnosis Gerald Treviño III, MD [address] [place] [address] [address] [place] [place] [address] 03/30/2025 Gerald Treviño Plan Of Treatment Medication [...] 90 DAYS Next Appt Details Provider Name:Gerald Treviño, 10/05/2025 09:30:00 AM, [address] [place] [address], [place] [address], [place], [address], Progress Notes * Eve VERASDOB:[birth year] (64 yo F)Acc No.[id number]:03/30/2025 Progress Notes Patient:?EDA Eve Provider:?Gerald Treviño MD :1960???Age:64 Y???Sex:Female D ate:03/30/2025 Address:[address] [place] [address], [facility], [id number] Subjective: * Chief Complaints: * ???1. Follow up. * HPI: ???COVID-19 Screening:?Questions?Have you had any new onset fever, chills, cough, congestion, sore throat, shortness of breath, muscle aches??No * ROS:?General/Constitutional:?pain?only normal aches and pains.?Chills?denies.?Fatigue?admits.?Fever?denies.?ENT:?Decreased hearing?denies.?Respiratory:?Cough?denies.?Cardiovascular:?Chest pain with exertion?denies.?Dyspnea on exertion?denies.?Shortness of breath?denies.?Gastrointestinal:?Constipation?denies.?Decreased appetite?denies.?Diarrhea?denies.?Heartburn?denies.?Nausea?denies.?Rectal bleeding?denies.?Vomiting?denies.?Hematology:?bruising?denies.?petechiae?denies.?Swollen glands?none have been noted.?Genitourinary:?Frequent urination?denies.?Musculoskeletal:?Muscle aches?denies.?Painful joints?denies.?Sciatica?denies.?Weakness?denies.?Skin:?Itching?denies.?Rash?denies.?Skin lesion(s)?denies.?Neurologic:?Difficulty speaking?denies.?Dizziness?denies.?Headache?denies.?Low back pain?denies.?Psychiatric:?Depressed mood?denies.? 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 * Surgical History:? s ection X2 , tubal ligation , colonoscopy, Dr. Ospina 01/2019, [place] [facility] [place], No history . * Hospitalization/Major Diagno stic Procedure:?No history . * Family History:?Father: dece ased 73 yrs, Diabetes mellitus, hypertension, diagnosed with DM, HTN.?Mother: 65 yrs, Liver cancer, hypertension, diagnosed with [...] 10 years ?Additional Findings: Tobacco non-user?Ex-cigarette smoker ???She was born in [place] and moved to [facility] when she was 8 years old. She was raised in [place]. She has 2 sons, Michael 34 years old and juan jose 30 years old, who are alive and well. She has no grandchildren. * Medications:?Taking glipiZID E 10 MG Tablet 1 tablet Orally twice [...] the patient * Allergies:?No Known Drug All ergy. Objective: * Vitals:? * Examination: ???General Examination: ?GENERAL APPEARANCE:?pleasant, well nourished, well developed, in no acute distress, calm and relaxed.?HEAD:?atraumatic, normocephalic.?EYES:?eomi, perrla, anicteric, conjugate.?EARS:?normal.?NOSE:?septum intact.?ORAL CAVITY:?normal, unremarkable.?NECK/THYROID:?no jugular venous distention, no carotid bruit, thyroid normal.?LYMPH NODES:?no enlarged lymph nodes,spleen normal.?SKIN:?no suspicious lesions, anicteric.?HEART:?no clicks, gallops, murmurs, or rubs, regular rhythm, S1, S2 normal, no s3, or vascular bruits.?LUNGS:?clear to auscultation .?BREASTS:??no masses palpable bilaterally.?ABDOMEN:?bowel sounds normal, no ascites, no organomegaly, no mass.?RECTAL EXAM:?not examined.?MUSCULOSKELETAL:?extremities unremarkable, no clubbing, cyanosis or edema.?PERIPHERAL PULSES:?normal.?NEUROLOGIC:?alert and oriented, cranial nerves 2-12 grossly intact, deep tendon reflexes 2+ symmetrical, motor strength normal upper and lower extremities, sensory exam intact.?PSYCH:?alert, oriented.? Assessment: Plan: * Treatment: * Images: * The named appointment provid er may or may not be the originator of this progress note, and it is not deemed complete until electronically signed by the appointment provider. Sign off status: Pending * Provider:?Gerald Treviño MD Date:?03/03 Generated for Carrie leyva/Kadeem/Joseitting on:?04/15/2025 04:39 PM EDT History and Physical Notes * HPI (History [...]
--- OUTSIDE RECORDS SUMMARY | 2025-04-15 16:39 | XMS_ITS ---
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?Age:64 Y???Sex:Female Address:[address], [address], [place], [address] * true * Date:? Generated for Printi gordon/Kadeem/eTransmitting on:?04/15/2025 04:39 PM EDT
--- OUTSIDE RECORDS SUMMARY | 2025-04-15 16:39 | XMS_ITS ---
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 Name Role Phone Hudson TILLEY, Gerald Primary Care Provider Unavailab Gerald York Unavailable [phone] REASON FOR VISIT Patient presents today for a COLON SCREENING Encounters Encounter Location Date Provider Diagnosis [facility] [address] [place] [address] 01/12/2025 Gerald Ospina Plan Of Treatment No Information Progress Notes * JOSE VERASDOB:[birth year] (64 yo F)Acc No.[id number]:01/12/2025 Progress Notes Patient:?JOSE VERAS Provider:?Gerald Ospina MD :1960???Age:64 Y???Sex:Female D ate:01/12/2025 Address:[address] [place], [place] [id number] Pcp:Gerald Treviño MD Subjective: * Chief Complaints: * ???1. Patient presents today for a COLON SCREENING. * Medical History:? Objective: * Vitals:? Assessment: Plan: * Treatment: * * The named appointment provid er may or may not be the originator of this progress note, and it is not deemed complete until electronically signed by the appointment provider. Sign off status: Pending * Provider:?Gerald Ospina MD Date:? 025 Generated for Jordani gordon/Josianeg/eTransmitting on:?04/15/2025 04:38 PM EDT
--- OUTSIDE RECORDS SUMMARY | 2025-04-15 16:39 | XMS_ITS | Patient Health Record ---
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 1-5 years Section Notes: Smoker; no sig. alcohol Nonsmoker since 2013; no sig . alcohol Problems Problem Type SNOMED Code ICD Code Onset Dates Problem Status W/U Status Risk Notes Problem 310075485 Encounter for screening for malignant neoplasm of colon (Z12.11) Active confirmed Problem 739223930 Hx of adenomatous colonic polyps (Z86.010) Active confirmed Problem 613899540782037 Pre-procedural examination (Z01.818) Active confirmed Encounters Encounter Location Date Provider Diagnosis [facility] [address] [place] [address] 01/12/2025 Gerald Ospina Plan Of Treatment Future Test Test Name Order Date COLONOSCOPY 05/11/2013 COLONOSCOPY 12/16/2018 Insurance Providers Payer Name Payer Address Payer Phone Subscriber Number Group Number Insured Name Patient Relationship to Insured Coverage Start Date Coverage End Date [facility] [place] [facility] [address] [place] [address] [id number] JOSE VERAS Self - patient is the insured Medical (General) History Medical History History ICD Code Colonoscopy 01/2010 and 3 with me--diverticulosis and internal hemorrhoids--no polyps Multiple tubular adenomas re moved by Dr. Poe in 12/2005---1 was > 3 cm; F/U colon in 03/2006 with only 1 small tubular adenoma Hyperlipidemia-on no meds at present delisa e HTN Denies SC,CVA,Lung disease,renal disease NIDDM Surgical History Surgery Date(Month/Year) 2 C-sections BTL
--- OUTSIDE RECORDS SUMMARY | 2025-04-15 16:39 | XMS_ITS | Patient Health Record ---
Author Organization Gerald Treviño III, MD Address [address] [place] [address] Care Team Providers Care Oil Expeller Operator Name Role Phone Gerald Treviño Primary [...] Panel Reviewed date:11/26/2024 04:15:45 PM Interpretation: Performing Lab:[facility], [address] [place] [phone] Notes/Report: Triglycerides 225 <150 mg/dL Desirable Triglyceride: [...] A1c Reviewed date:11/26/2024 04:15:45 PM Interpretation: Performing Lab:[facility], [address] [place] [phone] Notes/Report: Hemoglobin A1c % 8.4 <6.0 % [...] average glucose, using the formula of the X7D-Dravgin Average Glucose study (ADAG), Diabetes Care, Vol.31,#8, 2007 Complete Blood Count Auto Di ff Reviewed date:11/26/2024 04:15:45 PM Interpretation: Performing Lab:[facility], [address] [place] [phone] Notes/Report: White Blood Count 7.2 4.8-10.8 X10*3/uL Red Blood Count 4.51 4.20-5.50 X10*6/uL Hemoglobin 12.8 12.0-16.0 g/dl Hematocrit 38.5 37.0-47.0 % Mean Corpuscular Volume 85.4 80.0-98.0 fL Mean Corpuscular Hemoglobin 28.4 27.0-33.0 pg Mean Corpuscular HGB Conc 33.2 31.0-35.0 g/dl Red Cell Distribution Width 12.9 11.0-16.0 % Platelet Count 232 160-400 X10*3/uL Mean Platelet Volume 11.7 9.4-12.3 fL Neutrophils Percent Auto 54.0 45-73 % Imm Gran Pct Auto 1.1 0.0-0.4 % Lymphocytes Percent Auto 32.4 20-40 % Monocytes Percent Auto 8.6 2-11 % Eosinophils Percent Auto 3.5 0-4 % Basophils Percent Auto 0.4 0-2 % NRBC Pct Auto 0.0 0.0-0.2 /100WBC Neutrophils Absolute Auto 3.9 2.0-8.3 x10*3/u L Imm Gran Abs Auto 0.08 0.00-0.03 X10*3/uL Lymphocytes Absolute Auto 2.3 1.2-4.9 X10*3/u L Monocytes Absolute Auto 0.6 0.1-1.2 X10*3/uL Eosinophils Absolute Auto 0.3 0.0-0.4 X10*3/u L Basophils Absolute Auto 0.0 0.0-0.2 X10*3/uL NRBC Abs Auto 0.000 0.0-0.012 X10*3/uL Comprehensive [place]. Panel Fa st Reviewed date:11/26/2024 04:15:45 PM Interpretation: Performing Lab:[facility], [address] [place] [phone] Notes/Report: Sodium 140 135-145 mmol/L Potassium 3.9 3.3-5.1 mmol/L Chloride 107 96-108 mmol/L Carbon Dioxide 25 22-29 mmol/L Anion Gap 12 12-20 Blood Urea Nitrogen 11 9-16 mg/dL Creatinine 0.73 0.5-1.4 mg/dL Estimated Glomerular Filt Rate > 60 NOTE: For -[place] individuals, multiply the result by 1.210. Chronic Kidney Disease: Estimated GFR < 60 mL/min/1.73m2 Severe Kidney Disease: Estimated GFR < 15 mL/min/1.73m2 Glucose Fasting 254 60-99 mg/dL A fasting glucose of 126 mg/dl or greater on more than one occasion is considered diagnostic of diabetes. Calcium 10.8 8.4-10.2 mg/dL Bilirubin Total 0.5 0.0-1.0 mg/dL Aspartate Amino Transferase 40 5-31 U/L Alanine Aminotransferase 67 0-31 U/L Total Protein 6.9 6.5-8.0 g/dL Albumin Level 4.2 3.5-5.0 g/dL Alkaline Phosphatase 109 39-117 U/L Microalbumin, Random Reviewed date:11/26/2024 04:15:45 PM Interpretation: Performing Lab:[facility], [address] [place] [phone] Notes/Report: Creatinine Urine 157.46 Microalbumin Urine 51.0 Microalbum/Creatinine Ratio Ur 32.3 <30 ug/mg cr Albumin/Creatinine Ratio Reference Ranges: Normal: < 30 ug/mg creatinine Microalbuminuria: 30 - 300 ug/mg creatinine Clinical Albuminuria: > 300 ug/mg creatinine Complete Blood Count Auto Di ff Reviewed date:12/26/2024 04:41:39 PM Interpretation: Performing Lab:[facility], [address] [place] [phone] Notes/Report: White Blood Count 7.7 4.8-10.8 X10*3/uL Red Blood Count 4.67 4.20-5.50 X10*6/uL Hemoglobin 13.2 12.0-16.0 g/dl Hematocrit 40.0 37.0-47.0 % Mean Corpuscular Volume 85.7 80.0-98.0 fL Mean Corpuscular Hemoglobin 28.3 27.0-33.0 pg Mean Corpuscular HGB Conc 33.0 31.0-35.0 g/dl Red Cell Distribution Width 12.9 11.0-16.0 % Platelet Count 226 160-400 X10*3/uL Mean Platelet Volume 11.3 9.4-12.3 fL Neutrophils Percent Auto 48.3 45-73 % Imm Gran Pct Auto 1.8 0.0-0.4 % Lymphocytes Percent Auto 38.2 20-40 % Monocytes Percent Auto 7.5 2-11 % Eosinophils Percent Auto 3.6 0-4 % Basophils Percent Auto 0.6 0-2 % NRBC Pct Auto 0.0 0.0-0.2 /100WBC Neutrophils Absolute Auto 3.7 2.0-8.3 x10*3/u L Imm Gran Abs Auto 0.14 0.00-0.03 X10*3/uL Lymphocytes Absolute Auto 3.0 1.2-4.9 X10*3/u L Monocytes Absolute Auto 0.6 0.1-1.2 X10*3/uL Eosinophils Absolute Auto 0.3 0.0-0.4 X10*3/u L Basophils Absolute Auto 0.1 0.0-0.2 X10*3/uL NRBC Abs Auto 0.000 0.0-0.012 X10*3/uL Comprehensive [place]. Panel Fa st Reviewed date:12/26/2024 04:41:39 PM Interpretation: Performing Lab:[facility], [address] [place] [phone] Notes/Report: Sodium 139 135-145 mmol/L Potassium 4.0 3.3-5.1 mmol/L Chloride 107 96-108 mmol/L Carbon Dioxide 25 22-29 mmol/L Anion Gap 11 12-20 Blood Urea Nitrogen 16 9-16 mg/dL Creatinine 0.72 0.5-1.4 mg/dL Estimated Glomerular Filt Rate > 60 Chronic Kidney Disease: Estimated GFR < 60 mL/min/1.73m2 Severe Kidney Disease: Estimated GFR < 15 mL/min/1.73m2 Glucose Fasting 212 60-99 mg/dL A fasting glucose of 126 mg/dl or greater on more than one occasion is considered diagnostic of diabetes. Calcium 10.7 8.4-10.2 mg/dL Bilirubin Total 0.4 0.0-1.0 mg/dL Aspartate Amino Transferase 43 5-31 U/L Alanine Aminotransferase 75 0-31 U/L Total Protein 7.2 6.5-8.0 g/dL Albumin Level 4.3 3.5-5.0 g/dL Alkaline Phosphatase 126 39-117 U/L Lipid Panel Reviewed date:12/26/2024 04:41:39 PM Interpretation: Performing Lab:[facility], [address] [place] [phone] Notes/Report: Triglycerides 219 <150 mg/dL Desirable Triglyceride: less than 150 mg/dL Borderline High Triglyceride 150-199 mg/dL High Triglyceride: 200-499 mg/dL Very High Triglyceride: greater than or equal to 5OO mg/dL Cholesterol 225 <200 mg/dL Desirable Cholesterol: less than 200 mg/dL Borderline High Cholesterol: 200-239 mg/dL High Cholesterol: greater than 239 mg/dL LDL Cholesterol Calculated 144 <100 mg/dL Desirable LDL: less than 100 mg/dL Near Optimal/Above Optimal LDL: 110-129 mg/dL Borderline High LDL: 130-159 mg/dL High LDL: 160-189 mg/dL Very High LDL: greater than or equal to 190 mg/dL HDL Cholesterol 38 >40 mg/dL Desirable HDL: greater than 40 mg/dL Note: This HDL assay may give artificially low results in patients with liver disease. Microalbumin, Random Reviewed date:12/26/2024 04:41:39 PM Interpretation: Performing Lab:[facility], [address] [place] [phone] Notes/Report: Creatinine Urine 125.69 Microalbumin Urine 30.0 Microalbum/Creatinine Ratio Ur 23.8 <30 ug/mg cr Albumin/Creatinine Ratio Reference Ranges: Normal: < 30 ug/mg creatinine Microalbuminuria: 30 - 300 ug/mg creatinine Clinical Albuminuria: > 300 ug/mg creatinine Hemoglobin A1c Reviewed date:12/26/2024 04:41:39 PM Interpretation: Performing Lab:[facility], [address] [place] [phone] Notes/Report: Hemoglobin A1c % 8.7 <6.0 % Hemoglobin A1C Reference Range Adults: 4.8 - 6.0 % Non diabetic: < 6.0 % Goal: < 7.0 % Additional Action Suggested: > 8.0 % Note: Hemoglobin A1c results are invalid for patients with abnormal amounts of HbF. Blood transfusions may impact the HbA1c concentration in the patient sample. Estimated Average Glucose 203 eAG = Estimated average glucose which is %A1C expressed as average glucose, using the formula of the G7R-Wowdlhb Average Glucose study (ADAG), Diabetes Care, Vol.31,#8, Jul. 2007 Reason For Referral Reason 5 year colonoscopy Diagnosis 1 Adenomatous polyp of colon, unspecified part of colon (D12.6) Referral Organization Gerald Treviño III, MD Referring Provider First Name Gerald Referring Provider Last Name Hudson Referring Provider Speciality Internal M edicine Referred Provider Gerald Ospina Referred Provider Specialty Gastroentero logy General Notes Sofy Regan PHOTOENGRAVING PRINTER 09/30 10:49:52 AM > Per Dr Treviño [...] Referring Provider Speciality Internal M edicine Referred Organization [facility] Referred Provider [facility], [facility] Referred Address [address] [place] [id number], Referred Provider Specialty OB - Gynecol ogy General Notes Sofy Regan PHOTOENGRAVING PRINTER 10/07 10:36:12 AM > ref/demo/progress note /labs faxed to pt OBGYN for review Referral Priority Routine Referral Appointment Date 01/26/2025 Medications Medication SIG (Take, Route, Frequency, Duration) [...] OUTH TWICE A DAY WITH MEALS Active Simvastatin 10 MG TAKE 1 TABLET BY JANICE TH EVERY DAY Orally Once a day Active Lisinopril 10 MG TAKE 1 TABLET BY JANICE TH EVERY DAY FOR 90 DAYS Active glipiZIDE 10 MG 1 tablet Orally twic e a day 11/26/2024 Active Immunizations Vaccine Route Administration Date Status Comme nts COVID- 19 Vaccine Unknown 02/24/2021 Administered COVID- 19 Vaccine Unknown 03/24/2021 Administered Influenza Vaccine Afluria IM Intramuscular 09/30/2024 Admi [...] ast year? No Points 0 Interpretation Negative Problems Problem Type SNOMED Code ICD Code Onset Dates Problem Status W/U Status Risk Notes Problem 0716542 Former smoker (Z87.891) Active confirmed We have discuss ed a plan to prevent relapse in times of stress and illness. Problem 768343768501906 Obesity (BMI 30.0-34.9) (E66.9) Active confirmed Her weight is stable from her last visit at 171 pounds. Her BMI is in the obese range. We made a plan today to lose weight at a rate of one half of a pound per week through regular physical activity and a diet restricted in fat calories and sodium. Problem 20910103 Intramural leiomyoma of uterus (D25.1) Active confirmed Problem 563682652 Mixed hyperlipidemia (E78.2) Active confirmed Her total cholesterol is 225. I discussed weight loss and diet with her today. I recommended a Mediterranean diabetic diet. We made plans to lose weight at a rate of one half of a pound per week. Her current medications were continued. Problem 35368687 Hypercalcemia (E83.52) Active confirmed The [facility] calcium level is 10.7. Hyperparathyroidi sm is suspected. She will be referred to endocrinology. Problem Endometrial hyperplasia, unspecified (N85.00) Active confirmed Problem 44888557 Essential hypertension (I10) Active confirmed Her blood pressure is slightly high at 143/75. She does not wish to take additional blood pressure medication at this time. She says she is going to lose weight and restrict sodium. Follow-up appointment was given in the near future. Problem 224973576395051 Carpal tunnel syndrome, right (G56.01) Active confirmed The pain in her wrist has improved and is not a significant problem today. She is more focused upon shoulder pain. Problem 30502620 Stress incontinence of urine (N39.3) Active confirmed He is occasionally incontinent. This problem has not worsened. We discussed a referral to urology, and she will consider it. Problem 664846773 Type 2 diabetes mellitus without complication, without long-term current use of insulin (E11.9) Active confirmed Problem 808799723 Adenomatous polyp of colon, unspecified part of colon (D12.6) Active confirmed She denies any recent dental pain or bleeding. She will be referred to GI at the appropriate time. 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 The hemoglobin [...] she declined wishing to use injected medications. Problem 354118514 Abnormal liver function test (R94.5) Active confirmed Her transaminas e enzymes are rising again. They had been normalizing. This is likely due to uncontrolled diabetes which will be addressed.These values will be carefully observed. Vital Signs Heart Rate 81 /min 12/29/2024 Temperature 97.9 degrees Fahrenheit 12/29/2024 Blood pressure diastolic 75 mm Hg 12/29/2024 Height 61 in 12/29/2024 Blood pressure systolic 143 mm Hg 12/29/2024 Weight 171 lbs 12/29/2024 BMI 32.31 kg/m2 12/29/2024 Encounters Encounter Location Date Provider Diagnosis Gerald Treviño III, MD [address] [place] [address] [place] [phone] 09/30/2024 Gerald Treviño Obesity (BMI 30.0-34 .9) E66.9 ; Type 2 diabetes mellitus with complication, unspecified whether termination clerk insulin use E11.8 ; Mixed hyperlipidemia E78.2 ; Encounter for immunization Z23 ; Essential hypertension I10 ; Carpal tunnel syndrome, right G56.01 ; Intramural leiomyoma of uterus D25.1 ; Stress incontinence of urine N39.3 and Former smoker Z87.891 Gerald Treviño III, MD [address] [place] [address] [place] [phone] 12/29/2024 Gerald Treviño Essential hypertensi on I10 ; 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 E11.39 ; Obesity (BMI 30.0-34.9) E66.9 ; Former smoker Z87.891 ; Mixed hyperlipidemia E78.2 ; Abnormal liver function test R94.5 and Hypercalcemia E83.52 Gerald Treviño III, MD [address] [place] [address] [place] [phone] 09/27/2024 Gerald Treviño III, MD [address] [place] [address] [place] [phone] 11/26/2024 Gerald Treviño III, MD [address] [place] [address] [place] [phone] 01/14/2025 Gerald Treviño Assessments Encounter Date Diagnosis (ICD Code) Assessment Notes Treatment Notes Treatment Clinical Notes 09/30/2024 Obesity (BMI [...] 2 diabetes mellitus with complication, unspecified whether termination clerk insulin use (ICD-10 - E11.8) I have ordered a hemoglobin A1c and microalbumin and fasting glucose. This will be done in near future. 12/29/2024 Essential hypertension (ICD-10 - I10) Her [...] she declined wishing to use injected medications. 09/30/2024 Mixed hyperlipidemia (ICD-10 - E78.2) Current blood work is unavailable. I have ordered comprehensive lab work which will include a fasting lipid profile. 12/29/2024 Obesity (BMI 30.0-34.9) (ICD-10 - E66.9) Her weight is stable from her last visit at 171 pounds. Her BMI is in the obese range. We made a plan today to lose weight at a rate of one half of a pound per week through regular physical activity and a diet restricted in fat calories and sodium. 09/30/2024 Encounter for immunization (ICD-10 - Z23) She received influenza vaccine today without complications. 12/29/2024 Former smoker (ICD-10 - Z87.891) We have discussed a plan to prevent relapse in times of stress and illness. 09/30/2024 Essential hypertension (ICD-10 - I10) Her blood pressure Is stable.. We are going to work on weight reduction, sodium restriction, and control of diabetes. 12/29/2024 Mixed hyperlipidemia (ICD-10 - E78.2) Her total cholesterol is 225. I discussed weight loss and diet with her today. I recommended a Mediterranean diabetic diet. We made plans to lose weight at a rate of one half of a pound per week. Her current medications were continued. 09/30/2024 Carpal tunnel syndrome, right (ICD-10 - G56.01) The pain in her wrist has improved and is not a significant problem today. She is more focused upon shoulder pain. 12/29/2024 Abnormal liver function test (ICD-10 - R94.5) Her transaminase enzymes are rising again. They had been normalizing. This is likely due to uncontrolled diabetes which will be addressed.These values will be carefully observed. 09/30/2024 Intramural leiomyoma of uterus (ICD-10 - D25.1) 12/29/2024 Hypercalcemia (ICD-10 - E83.52) The currennt calcium level is 10.7. Hyperparathyroidism is suspected. She will be referred to endocrinology. 09/30/2024 Stress incontinence of urine (ICD-10 - N39.3) He is occasionally incontinent. This problem has not worsened. We discussed a referral to urology, and she will consider it. 09/30/2024 Former smoker (ICD-10 - Z87.891) We have discussed a plan to prevent relapse in times of stress and illness. Plan Of Treatment Pending Test Test Name Order Date PROFILE, FASTING (COMPREHENSIVE METABOLI C) 10/09/2022 PROFILE, FASTING (COMPREHENSIVE METABOLI C) 04/16/2022 PROFILE, FASTING (COMPREHENSIVE METABOLI C) 12/29/2024 PROFILE, FASTING (COMPREHENSIVE METABOLI C) 01/21/2023 HEMOGLOBIN A1C (GLYCOHEMOGLOBIN) 023 HEMOGLOBIN A1C (GLYCOHEMOGLOBIN) 022 HEMOGLOBIN A1C (GLYCOHEMOGLOBIN) 022 URIC ACID 10/09/2022 LIPID PANEL 01/21/2023 LIPID PANEL 10/09/2022 MICROALBUMIN, RANDOM 01/21/2023 CBC w DIFF 12/29/2024 CBC w DIFF 04/16/2022 CBC w DIFF 01/21/2023 CBC w DIFF 10/09/2022 Lipid Panel 12/29/2024 Lipid Panel 04/16/2022 Hemoglobin A1c 12/29/2024 Next Appt Details Provider Name:Gerald Treviño, 10/05/2025 09:30:00 AM, [address] [place] [address] DR HAYLIE Kayce, [place], [phone], Insurance Providers Payer Name Payer Address Payer Phone Subscriber Number Group Number Insured Name Patient Relationship to Insured Coverage Start Date Coverage End Date [facility] [address] [place] [address] [id number] Eve Camara Self - patient is the insured [place] [address] [place] [id number] [phone] [id number] Eve Camara Self - patient is the insured Medical (General) History Medical History History ICD Code Carpal tunnel syndrome of right wrist G5 6.01 Hyperlipidemia, unspecified hyperlipidem ia type E78.5 [id number] diabetes mellitus multiple tubular adenomas of the colon uterine fibroid and abnormal 1.1 cm uterine stripe pelvic ultrasound December 2016, biopsy was recommended obesity hyperlipidemia essential hypertension urinary incontinence former smoker Diabetes Surgical History Surgery Date(Month/Year) No history Uterus biopsy [facility] 10/[address] 01/2019 tubal ligation section X2 Hospitalization History Reason Date(Month/Year) No history
--- OUTSIDE RECORDS SUMMARY | 2025-04-15 16:39 | XMS_ITS ---
Author Organization [facility] Address [address] [place] [address] Care Team Providers Care Gullet Slitter Name Role Phone Gerald Treviño MD Primary Care Provider Unavailab Gerald York Unavailable [phone] REASON FOR VISIT Pt no show Encounters Encounter Location Date Provider Diagnosis [facility] [address] [place] [address] 01/12/2025 Gerald Ospina Plan Of Treatment No Information Progress Notes * JOSE VERASDOB:[birth year] (64 yo F)Acc No.[id number]:01/12/2025 Patient:?EDA JOSE :1960???Age:64 Y???Sex:Female Address:[address] [place] [address] [address], [place] [address] * true * Date:? Generated for Carrie leyva/Kadeem/eTransmitting on:?04/15/2025 04:38 PM EDT
--- OUTSIDE RECORDS SUMMARY | 2025-04-15 16:39 | XMS_ITS ---
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 12/29/2024 Hypercalcemia (ICD-10 - E83.52) The [facility] calcium level is 10.7. Hyperparathyroidism is [...] Months, Reason: ov review labs Provider Name:Gerald Treviño, 10/05/2025 09:30:00 AM, [address] [place] [address] HAYLIE [place]UDELO, [place], [phone], Progress Notes * Eve VERASDOB:[birth year] (64 yo F)Acc No.[id number]:12/29/2024 Progress Notes Patient:?Eve VERAS Provider:?Gerald Treviño MD :1960???Age:64 Y???Sex:Female D ate:12/29/2024 Address:[address] [place] [address], [facility] [place]рина, [place] [phone] Subjective: * Chief Complaints: * ???HypertensionDiabetesObesi tyHyperlipidemiaStress incontinenceHypercalcemia * HPI: ???COVID-19 Screening:?Questions?Have you had any new onset fever, chills, cough, congestion, sore throat, shortness of breath, muscle aches??No ???:?The patient, a 64-year-old female, has been experiencing [...] work. Blood Sugar Level is 212. * ROS:?General/Constitutional:?pain?Primarily left arm and leg muscle aches and joint pains which are chronic but recently increased.?Chills?denies.?Fatigue?admits.?Fever?denies.?ENT:?Decreased hearing?denies.?Respiratory:?Cough?denies.?Cardiovascular:?Chest pain with exertion?denies.?Dyspnea on exertion?denies.?Shortness of breath?denies.?Gastrointestinal:?Constipation?occasional.?Decreased appetite?denies.?Diarrhea?denies.?Heartburn?occasional.?Nausea?denies.?Rectal bleeding?denies.?Vomiting?denies.?Hematology:?bruising?denies.?petechiae?denies.?Swollen glands?none have been noted.?Genitourinary:?Frequent urination?at night.?Musculoskeletal:?Muscle aches?denies.?Painful joints?denies.?Sciatica?denies.?Weakness?denies.?Skin:?Itching?denies.?Rash?denies.?Skin lesion(s)?denies.?Neurologic:?Difficulty speaking?denies.?Dizziness?denies.?Headache?denies.?Low back pain?denies.?Psychiatric:?Depressed mood?denies.? * Medical History:? * Surgical History:? s ection X2 tubal ligation colonoscopy, [place]. Ospina 01[place] [facility] [place] * Hospitalization/Major Diagno stic Procedure:?No [...] Tobacco non-user?Ex-cigarette smoker ???She was born in [place] and moved to [facility] when she was 8 years old. She was raised in [place]. She has 2 sons, Michael 34 years old and juan jose 30 years old, who are alive and well. She has no grandchildren. * Medications:?TakingLisinopri l 10 MG Tablet TAKE 1 TABLET BY [...] Vitals:?Ht: 61, Wt: 171, BMI :32.31, BP: 143/75, HR: 81, Temp: 97.9, Wt-k.56. * ???Past Orders: Lab:Microalbumin, Random * Collection Date 12/25/2024 10/02/2024 10/06/2021 Collection Time 09:30 AM 09:40 AM 08:54 AM Order Date 12/25/2024 10/02/2024 10/06/2021 Creatinine Urine 125.69 (Ref Range: mg/dL) 157.46 (Ref Range: mg/dL) 118.40 (Ref Range: mg/dL) Microalbumin Urine 30.0 (Ref Range: mg/L) 51.0 (Ref Range: mg/L) 59.0 (Ref Range: mg/L) Microalbum Creatinine Ratio Ur 23.8 (Ref Range: <30 ug/mg cr) 32.3?H (Ref Range: <30 ug/mg cr) 49.8 (Ref Range: ug/mg cr) * Lab:Lipid Panel * Collection Date 12/25/2024 10/02/2024 04/13/2022 Collection Time 09:30 AM 09:44 AM 07:39 AM Order Date 12/25/2024 09/30/2024 04/13/2022 Triglycerides 219?H (Ref Range: <150 mg/dL) 225?H (Ref Range: <150 mg/dL) 223 (Ref Range: mg/dL) Cholesterol 225?H (Ref Range: <200 mg/dL) 234?H (Ref Range: <200 mg/dL) 231 (Ref Range: mg/dL) LDL Cholesterol Calculated 144?H (Ref Range: <100 mg/dL) 149?H (Ref Range: <100 mg/dL) 147 (Ref Range: mg/dl) HDL Cholesterol 38?L (Ref Range: >40 mg/dL) 40?L (Ref Range: >40 mg/dL) 40 (Ref Range: mg/dL) Clinical Info: Please have this testing 1 week prior to your next appointment,Please fast for 12-14 hours prior to having this labwork done. You may have black coffee or tea with no milk or sugar. May have water,PLEASE FAX COMPLETED RESULTS TO [phone] Please have this testing done as soon as possible,Please fast for 12-14 hours prior to having this labwork done. You may have black coffee or tea with no milk or sugar. May have water,PLEASE FAX COMPLETED RESULTS TO [phone] * Lab:Comprehensive [facility] Fast * Collection Date 12/25/2024 10/02/2024 04/13/2022 Collection Time 09:30 AM 09:44 AM 07:39 AM Order Date 12/25/2024 10/02/2024 04/13/2022 Sodium 139 (Ref Range: 135-145 mmol/L) 140 (Ref Range: 135-145 mmol/L) 138 (Ref Range: 135-145 mmol/L) Bilirubin Total 0.4 (Ref Range: 0.0-1.0 mg/dL) 0.5 (Ref Range: 0.0-1.0 mg/dL) 0.4 (Ref Range: 0.0-1.0 mg/dL) Aspartate Amino Transferase 43?H (Ref Range: 5-31 U/L) 40?H (Ref Range: 5-31 U/L) 30 (Ref Range: 5-31 U/L) Alanine Aminotransferase 75?H (Ref Range: 0-31 U/L) 67?H (Ref Range: 0-31 U/L) 61?H (Ref Range: 0-31 U/L) Total Protein 7.2 (Ref Range: 6.5-8.0 g/dL) 6.9 (Ref Range: 6.5-8.0 g/dL) 7.3 (Ref Range: 6.5-8.0 g/dL) Albumin Level 4.3 (Ref Range: 3.5-5.0 g/dL) 4.2 (Ref Range: 3.5-5.0 g/dL) 4.4 (Ref Range: 3.5-5.0 g/dL) Alkaline Phosphatase 126?H (Ref Range: 39-117 U/L) 109 (Ref Range: 39-117 U/L) 127?H (Ref Range: 39-117 U/L) Potassium 4.0 (Ref Range: 3.3-5.1 mmol/L) 3.9 (Ref Range: 3.3-5.1 mmol/L) 4.2 (Ref Range: 3.3-5.1 mmol/L) Chloride 107 (Ref Range: 96-108 mmol/L) 107 (Ref Range: 96-108 mmol/L) 106 (Ref Range: 96-108 mmol/L) Carbon Dioxide 25 (Ref Range: 22-29 mmol/L) 25 (Ref Range: 22-29 mmol/L) 25 (Ref Range: 22-29 mmol/L) Anion Gap 11?L (Ref Range: 12-20) 12 (Ref Range: 12-20) 11?L (Ref Range: 12-20) Blood Urea Nitrogen 16 (Ref Range: 9-16 mg/dL) 11 (Ref Range: 9-16 mg/dL) 15 (Ref Range: 9-16 mg/dL) Creatinine 0.72 (Ref Range: 0.5-1.4 mg/dL) 0.73 (Ref Range: 0.5-1.4 mg/dL) 0.79 (Ref Range: 0.5-1.4 mg/dL) Estimated Glomerular Filt Rate > 60 > 60 > 60 Glucose Fasting 212?H (Ref Range: 60-99 mg/dL) 254?H (Ref Range: 60-99 mg/dL) 239?H (Ref Range: 60-99 mg/dL) Calcium 10.7?H (Ref Range: 8.4-10.2 mg/dL) 10.8?H (Ref Range: 8.4-10.2 mg/dL) 10.9?H (Ref Range: 8.4-10.2 mg/dL) * Lab:Complete Blood Count Aut o Diff * Collection Date 12/25/2024 10/02/2024 10/03/2022 Collection Time 09:30 AM 09:44 AM 04:23 PM Order Date 12/25/2024 10/02/2024 10/03/2022 White Blood Count 7.7 (Ref Range: 4.8-10.8 X10*3/uL) 7.2 (Ref Range: 4.8-10.8 X10*3/uL) 12.1?H (Ref Range: 4.8-10.8 X10*3/uL) Red Blood Count [...] Range: 45-73 %) Imm Gran Pct Auto 1.8?H (Ref Range: 0.0-0.4 %) 1.1?H (Ref Range: 0.0-0.4 %) 1.2?H (Ref Range: 0.0-0.4 %) Lymphocytes Percent Auto [...] Range: 2.0-8.3 x10*3/uL) Imm Gran Abs Auto 0.14?H (Ref Range: 0.00-0.03 X10*3/uL) 0.08?H (Ref Range: 0.00-0.03 X10*3/uL) 0.15?H (Ref Range: 0.00-0.03 X10*3/uL) Lymphocytes Absolute Auto [...] Date 12/25/2024 09/30/2024 04/13/2022 Hemoglobin A1c % 8.7?H (Ref Range: <6.0 %) 8.4?H (Ref Range: <6.0 %) 7.8 (Ref Range: [...] May have water,PLEASE FAX COMPLETED RESULTS TO [phone] Please have this testing done as soon as possible,Please fast for 12-14 hours prior to having this labwork done. You may have black coffee or tea with no milk or sugar. May have water,PLEASE FAX COMPLETED RESULTS TO [phone] * Lab:URINE DIP STICK * Collection Date [...] neg Menstrating NR N/A no * Examination: ???General Examination: ?GENERAL APPEARANCE:?pleasant, well nourished, well developed, in no acute distress, calm and relaxed, obese, woman.?HEAD:?atraumatic, normocephalic.?EYES:?eomi, perrla, anicteric, conjugate.?EARS:?normal.?NOSE:?septum intact.?ORAL CAVITY:?normal, unremarkable.?NECK/THYROID:?no [...] lower extremities, sensory exam intact.?PSYCH:?alert, oriented.? 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 The hemoglobin A1c has increased recently from 7.8-8.4 and is now 8.7.? We have discussed weight loss and diet today.? We discussed nutrition.? We discussed the dietary control of diabetes.? We made a plan to lose? weight at a rate of one half of a pound per week.? I have added pioglitazone to her regimen.? I offered to give her trulicity or Ozempic but she declined wishing to use injected medications.???2.?Essential hypertension - I10???Notes :Her blood pressure is slightly high at 143/75.? She does not wish to take additional blood pressure medication at this time.? She says she is going to lose weight and restrict sodium.? Follow-up appointment was given in the near future.???3.?Obesity (BMI 30.0-34.9) - E66.9???Notes :Her weight is stable from her last visit at 171 pounds.? Her BMI is in the obese range.? We made a plan today to lose weight at a rate of one half of a pound per week through regular physical activity and a diet restricted in fat calories and sodium.???4.?Former smoker - Z87.891???Notes :We have discussed a plan to prevent relapse in times of stress and illness.???5.?Mixed hyperlipidemia - E78.2???Notes :Her total cholesterol is 225.? I discussed weight loss and diet with her today.? I recommended a Mediterranean diabetic diet.? We made plans to lose weight at a rate of one half of a pound per week.? Her current medications were continued.???6.?Abnormal liver function test - R94.5???Notes :Her transaminase enzymes are rising again. They had been normalizing. This is likely due to uncontrolled diabetes which will be addressed.These values will be carefully observed.???7.?Hypercalcemia - E83.52???Notes :[facility].? Hyperparathyroidism is suspected.? She will be referred to endocrinology.??? Plan: * Treatment: 2.?Essential hypertension?LAB: PROFILE, FASTING (COMPREHENSIVE METABOLIC) ?LAB: CBC w DIFF ?LAB: Lipid Panel ?LAB: Hemoglobin A1c 3.?Obesity (BMI 30.0-34.9)?LAB: PROFILE, FASTING (COMPREHENSIVE METABOLIC) ?LAB: CBC w DIFF ?LAB: Lipid Panel ?LAB: Hemoglobin A1c 4.?Others? Continue glipiZIDE Tablet, 10 MG, 1 tablet, Orally, twice a day;?Continue Lisinopril Tablet, 10 MG, TAKE 1 TABLET [...] tablet in the morning, Orally, Once a day;?Start Pioglitazone HCl Tablet, 15 MG, 1 tablet, Orally, Once a day, 30 days, 30, Refills 11.?? * Procedure Codes:? * Preventive Medicine:? ??Counseling:?Care goal follow-up plan:?Counseling [...] dangers of tobacco use and urged to quit.?12/29/2024 ??DM Care Plan:?Patient Lifestyle Goals?Patient wants to be able to manage diabetes without too much effort.?Treatment Goals?Blood Sugars less than < 115, HbA1C < 7.0.?Barriers?no barriers.?Self-Managment Goals?Work on weight loss, with a goal of losing 1 lb per week.? * Follow Up:?3 Months (Reason: ov review labs) * Images: * Sign off status: Completed true * Provider:?Gerald Treviño MD Date:?12/02 Generated for Carrie leyva/Kadeem/Joseitting on:?04/15/2025 04:39 PM [...]
--- NOTE | 2025-04-15 16:42 | ECG_ITS ---
Test Reason : shoulder/chest pain Blood Pressure : */* mmHG Vent. Rate : 64 BPM Atrial Rate : 64 BPM P-R Int : 136 ms QRS Dur : 76 ms QT Int : 392 ms P-R-T Axes : 17 7 81 degrees QTcB Int : 404 ms Normal sinus rhythm Nonspecific T wave abnormality Abnormal ECG When compared with ECG of 21-Mar-2020 20:32, No significant change was found Referred By: Acacia Whitmore Electronically Signed By: JEFFERY RUIZ MD
[2025-04-15] MEDS: diazePAM 2 MG TABLET PO (18:16)
[2025-04-15 19:06] VITALS: BP 168/79; PULSE 63; RESP 14; TEMP 36.7; O2SAT 95
[2025-04-15 19:07] VITALS: BP 168/79; PULSE 63; RESP 14; TEMP 36.7; O2SAT 95
== END 2025-04-15 20:00 | disposition home or self-care (01) ==
PROVIDERS: Emergency Provider Emergency Medicine; PCP Internal Medicine Medical Oncology
DX: M43.6 Torticollis (principal); M54.2 Cervicalgia; E11.9 Type 2 diabetes mellitus without complications; I10 Essential (primary) hypertension; E78.00 Pure hypercholesterolemia, unspecified; Z79.899 Other long term (current) drug therapy; Z79.02 Long term (current) use of antithrombotics/antiplatelets
CPT/HCPCS: 93005; 99283

== ENCOUNTER → 2025-04-15 16:42 | Outpatient (BNV) | payer MEDICAID, SELFPAY | PROVIDERS: Emergency Provider Emergency Medicine; PCP Internal Medicine Medical Oncology; Visit Provider Internal Medicine Cardiovascular Disease | DX: R94.31 Abnormal electrocardiogram [ECG] [EKG] (principal); R07.9 Chest pain, unspecified; M25.519 Pain in unspecified shoulder | CPT/HCPCS: 93010 ==

== ENCOUNTER 2025-06-01 12:43 | Emergency (ER) | payer MEDICAID, SELFPAY ==
--- NOTE | ~2025-06-01 | XR_ITS ---
EXAMINATION: XR KNEE, LEFT CLINICAL INFORMATION: pain COMPARISON: None available. TECHNIQUE: AP, lateral, bilateral oblique x-rays of the left knee. FINDINGS: Moderate arterial vascular calcifications are present. There is no joint effusion. No fracture line is evident. Kidneys tuberosity enthesophyte is noted. XR/XR knee LT 4V IMPRESSION: Unremarkable left knee. Electronically signed by: Darrell Keys MD 06/01/2025 01:07 PM EDT
[2025-06-01 12:47] VITALS: BP 137/70; PULSE 103; RESP 18; TEMP 36.8; O2SAT 96; BMI 33.8
--- NOTE | 2025-06-01 12:48 | ED_ITS ---
HPI - General Adult General Chief complaint: Extremity Injury, Lower Stated complaint: left knee pain since friday today is worse Time Seen by Provider: 06/01/25 13:31 Source: patient, RN notes reviewed and old records reviewed Mode of arrival: ambulatory Limitations: no limitations History of Present Illness ED Provider: Roshan HPI narrative: Patient is a 64-year-old female presenting to the emergency department with complaint of atraumatic left knee pain since Friday. Denies decreased range of motion. Denies any fevers. Complains of pain, slight redness and swelling. Has used Tylenol with little relief. MD complaint: knee pain Onset (ago): day(s) Related Data Home Medications ?Medication ?Instructions ?Recorded ?Confirmed metformin 500 mg tablet 500 mg PO BID 09/26/2010/30 glipizide 5 mg tablet 5 mg PO BID 10/30/20 0 hydrochlorothiazide 25 mg tablet 25 mg PO QAM 10/30/20 10/30/20 lisinopril 10 mg tablet 10 mg PO DAILY 10/30/2010/03 simvastatin 10 mg tablet 10 mg PO BEDTIME 10/30/20 Previous Rx's ?Medication ?Instructions ?Recorded acetaminophen 650 mg 650 mg PO Q8H PRN pain #30 t abs 11/02/20 tablet,extended release (Tylenol 8 Hour) ibuprofen 800 mg tablet 800 mg PO Q8H PRN pain #30 t abs 11/02/20 fluconazole 150 mg tablet 150 mg PO ONCE PRN personal 1 day 03/11/22 (Diflucan) #1 tab cephalexin 500 mg capsule 500 mg PO BID 7 days #14 cap s 10/03/22 doxycycline hyclate 100 mg capsule 100 mg PO BID #14 c aps 10/03/22 ibuprofen 600 mg tablet 600 mg PO Q6H PRN fever or p ain 10/07/22 #30 tabs cyclobenzaprine 5 mg tablet 5 mg PO TID PRN muscle spa sm #10 04/15/25 tabs ibuprofen 600 mg tablet 600 mg PO Q8H PRN fever or p ain 04/15/25 #20 tabs prednisone 10 mg tablet See Rx Instructions .Route 0 06/01/25 .COMPLEX #15 tabs Allergies Allergy/AdvReac Type Severity Reaction Status Date / Time No Known Allergies Allergy Verified 06/01/25 12:49 Review of Systems Review of Systems: As per HPI Yes all other systems are reviewed and are negative Constitutional: Constitutional: Reports as per HPI [facility] Past Medical History Medical History Back abscess Elevated cholesterol delivery delivered Diabetes Hypertension Surgical History History of dilatation and curettage History of hysteroscopy Hx of section Tubal ligation status Family History Family History Paternal Grandmother Colon cancer Maternal Grandfather FH: throat cancer Social History Social History Alcohol intake: never Sexual orientation: Straight/Heterosexual Gender identity: Female Physical Exam ED Vital Signs: Vital Signs - 24 hr 06/01/25 12:47 Temperature 98.3 F Pulse Rate 103 H Respiratory Rate 18 Blood Pressure 137/70 Pulse Oximetry 96 Oxygen Delivery Method Room Air BMI result Body Mass Index 33.8 Vital signs have been reviewed and appear to be correct. Blood pressure normal. Heart rate normal. Respiratory rate normal. Temperature normal. Oxygen saturation normal. Const General: cooperative, healthy appearing and no acute distress Orientation/consciousness: oriented to person, oriented to place, oriented to time and patient oriented x3 Limitations: no limitations HENMT Head: Yes normocephalic and Yes atraumatic Ears: external ears normal General nose exam: Normal external nose present Face and sinus: Yes face symmetric Mouth: oropharynx normal and moist mucous membranes Throat: Yes uvula midline Eyes Pupils: Equal, round and reactive pupils present Neck Neck: Yes normal visual inspection and Yes supple Resp Effort & Inspection: normal respiratory effort and able to speak in complete sentences Auscultation: clear to auscultation bilaterally Cardio Rate: regular rate Rhythm: regular rhythm Heart sounds: S1 normal heart sound present and S2 normal heart sound present GI Palpation (GI): Soft to palpation and nontender Auscultation: normoactive bowel sounds General: Yes no CVA tenderness Back/Spine/Pelvis Back: no CVA tenderness Skin General skin exam: elasticity normal and turgor normal Neuro General: oriented to person, oriented to place, oriented to time, patient oriented x3, moves all extremities, no focal motor deficits and CN's II-XI intact bilaterally Cranial nerves: Yes Equal, round and reactive pupils present Cognition (Neuro): normal cognition Extrem General: Yes full ROM, Yes no pedal edema and Yes no calf tenderness Left lower extremity: knee Details: tenderness Location: of the patella, normal ROM and other (very slight erythema to anterior knee); no ecchymosis, no crepitus and no unusual warmth Psych Mental Status: mental status grossly normal Affect: normal affect Thought process: Normal thought process present Course Course Course Narrative: RME, this is a rapid medical exam performed by Rayo Lee please refer to primary provider for complete H&P- 64-year-old female presents for evaluation of left knee pain. Denies has had history of left knee bursitis. Plan for an x- ray Medical Decision Making Medical Decision Making [facility] Narrative: Patient is a 64-year-old female presenting to the emergency department with complaint of atraumatic left knee pain since Friday. On exam patient is awake, A+Ox3, VS WNL, afebrile, normal neurological exam without focal deficits, physical exam findings as above. Given reported symptoms and physical exam findings, initial differential includes but is not limited to gout, strain, sprain, effusion. Unlikely fracture. X-ray left knee notable for no effusion or fracture. My interpretation is in agreement with the radiologist's interpretation. Physical exam findings most consistent with gout. Results discussed with patient and all questions answered. Will treat with tapering course of prednisone. Advised follow up with PCP. Return precautions discussed at bedside. Patient verbalized understanding of and agreement with plan. Differential Diagnosis Differential Diagnoses: The differential diagnosis associated with the presentation includes as per [facility] Admission/Observation Consideration of admission/observation: Escalation of care including admission/observation considered Patient would have been admitted to the hospital had their work up had any findings where hospital admission was appropriate and their clinical presentation warranted hospital admission. Independent Interpretation I performed an independent interpretation of an: Plain X-Ray Interpretation: Left knee x-ray is without evidence of effusion or fracture. Radiology Impression Discussion of test interpretation with radiology: I have reviewed the radiologist's reading. Radiologist Impression: XR/XR knee LT 4V IMPRESSION: Unremarkable left knee. External Record Review External record reviewed: Inpatient record, Office record and Outpatient record Prescription Management I considered prescription management with: Other Discharge Plan Discharge Clinical Impression: Gout of left knee Qualifiers: Gout etiology: unspecified cause Chronicity: acute Qualified Code(s): M10.9 - Gout, unspecified Patient Disposition: Home, Self-Care Instructions: Gout (ED) Additional Instructions: You were evaluated in the emergency department today for left knee pain. Your x-ray did not show evidence of any fractures. Your physical exam findings are consistent with an acute gout flare. You are being treated with a tapering course of prednisone which is a steroid to decrease inflammation. Follow up with your primary care provider. Return to the emergency department with worsening redness, swelling, fever, difficulty walking or any other new or concerning symptoms. Prescriptions: New prednisone 10 mg tablet See Rx Instructions .ROUTE .COMPLEX Qty: 15 0RF Rx Instructions: 50mg (5 tabs) x1 day, then 40 mg (4 tabs) x1 day, then 30 mg (3 tabs) x1 day, then 20 mg (2 tabs) times 1 day, then 10 mg (1 tab) x1 day No Action lisinopril 10 mg tablet 10 mg PO DAILY hydrochlorothiazide 25 mg tablet 25 mg PO QAM glipizide 5 mg tablet 5 mg PO BID simvastatin 10 mg Tablet 10 mg PO BEDTIME ibuprofen 800 mg tablet 800 mg PO Q8H PRN (Reason: pain) Qty: 30 0RF acetaminophen [Tylenol 8 Hour] 650 mg tablet extended release 650 mg PO Q8H PRN (Reason: pain) Qty: 30 0RF Rx Instructions: Take four hours after ibuprofen ibuprofen 600 mg tablet 600 mg PO Q6H PRN (Reason: fever or pain) Qty: 30 0RF doxycycline hyclate 100 mg capsule 100 mg PO BID Qty: 14 0RF cephalexin 500 mg capsule 500 mg PO BID 7 Days Qty: 14 0RF cyclobenzaprine 5 mg tablet 5 mg PO TID PRN (Reason: muscle spasm) Qty: 10 0RF ibuprofen 600 mg tablet 600 mg PO Q8H PRN (Reason: fever or pain) Qty: 20 0RF metformin 500 mg tablet 500 mg PO BID fluconazole [Diflucan] 150 mg tablet 150 mg PO ONCE PRN (Reason: personal) 1 Days Qty: 1 1RF Print Language: Indonesian
[2025-06-01 14:08] VITALS: BP 132/67; PULSE 97; RESP 16; TEMP 36.7; O2SAT 96
[2025-06-01 14:23] VITALS: BP 136/66; PULSE 95; RESP 16; TEMP 36.7; O2SAT 96
--- OUTSIDE RECORDS SUMMARY | 2025-06-01 14:39 | XMS_ITS | Patient Health Record ---
Author Organization 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 Name Role Phone Gerald Treviño MD Primary Care Provider Unavailab Gerald York Unavailable [phone] Reason For Referral No Information Medications Medication [...] Problem Status W/U Status Risk Notes Problem [id number] Encounter for screening for malignant neoplasm of colon (Z12.11) Active confirmed Problem [id number] Hx of adenomatous colonic polyps (Z86.010) Active confirmed Problem [id number] Pre-procedural examination (Z01.818) Active confirmed Encounters Encounter Location Date Provider Diagnosis [facility] [address] [place] [address] 01/12/2025 Gerald Ospina Plan Of Treatment Future Test Test Name Order Date COLONOSCOPY 05/11/2013 COLONOSCOPY 12/16/2018 Insurance Providers Payer Name Payer Address Payer Phone Subscriber Number Group Number Insured Name Patient Relationship to Insured Coverage Start Date Coverage End Date [facility] [employer] [facility] [address] [place] [address] [id number] JOSE VERAS Self - patient is the insured Medical (General) History Medical History History ICD Code Colonoscopy 01/2010 and 3 with me--diverticulosis and internal hemorrhoids--no polyps Multiple tubular adenomas re moved by Dr. Poe in 12/2005---1 was > 3 cm; F/U colon in 03/2006 with only 1 small tubular adenoma Hyperlipidemia-on no meds at present delisa e HTN Denies MS,CVA,Lung disease,renal disease NIDDM Surgical History Surgery Date(Month/Year) 2 C-sections BTL
--- OUTSIDE RECORDS SUMMARY | 2025-06-01 14:39 | XMS_ITS | Patient Health Record ---
Author Organization Gerald Treviño III, MD Address [address] 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 Role Phone Gerald Treviño Primary Care Provider [phone] Allergies Allergen (clinical drug ingredient) Drug/Non Drug [...] Panel Reviewed date:11/26/2024 04:15:45 PM Interpretation: Performing Lab:[facility], [address] [place] [phone] Notes/Report: Triglycerides 225 <150 mg/dL Desirable Triglyceride: [...] A1c Reviewed date:11/26/2024 04:15:45 PM Interpretation: Performing Lab:[facility], [address] [place] [phone] Notes/Report: Hemoglobin A1c % 8.4 <6.0 % [...] average glucose, using the formula of the Y6U-Swsemoq Average Glucose study (ADAG), Diabetes Care, Vol.31,#8, 2007 Complete Blood Count Auto Di ff Reviewed date:11/26/2024 04:15:45 PM Interpretation: Performing Lab:[facility], [address] [place] [phone] Notes/Report: White Blood Count 7.2 4.8-10.8 X10*3/uL [...] NRBC Abs Auto 0.000 0.0-0.012 X10*3/uL Comprehensive [place]. Panel Fa st Reviewed date:11/26/2024 04:15:45 PM Interpretation: Performing Lab:[facility], [address] [place] [phone] Notes/Report: Sodium 140 135-145 mmol/L Potassium 3.9 3.3-5.1 mmol/L Chloride 107 96-108 mmol/L Carbon Dioxide 25 22-29 mmol/L Anion Gap 12 12-20 Blood Urea Nitrogen 11 9-16 mg/dL Creatinine 0.73 0.5-1.4 mg/dL Estimated Glomerular Filt Rate > 60 NOTE: For -Vietnamese individuals, multiply the result by 1.210. Chronic [...] Random Reviewed date:11/26/2024 04:15:45 PM Interpretation: Performing Lab:[facility], [address] [place] [phone] Notes/Report: Creatinine Urine 157.46 Microalbumin Urine 51.0 Microalbum/Creatinine Ratio Ur 32.3 <30 ug/mg cr Albumin/Creatinine Ratio Reference Ranges: Normal: < 30 ug/mg creatinine Microalbuminuria: 30 - 300 ug/mg creatinine Clinical Albuminuria: > 300 ug/mg creatinine Complete Blood Count Auto Di ff Reviewed date:12/26/2024 04:41:39 PM Interpretation: Performing Lab:[facility], [address] [place] [phone] Notes/Report: White Blood Count 7.7 4.8-10.8 X10*3/uL [...] NRBC Abs Auto 0.000 0.0-0.012 X10*3/uL Comprehensive [place]. Panel Fa st Reviewed date:12/26/2024 04:41:39 PM Interpretation: Performing Lab:[facility], [address] [place] [phone] Notes/Report: Sodium 139 135-145 mmol/L Potassium 4.0 [...] Panel Reviewed date:12/26/2024 04:41:39 PM Interpretation: Performing Lab:[facility], [address] [place] [phone] Notes/Report: Triglycerides 219 <150 mg/dL Desirable Triglyceride: [...] Random Reviewed date:12/26/2024 04:41:39 PM Interpretation: Performing Lab:[facility], [address] [place] [phone] Notes/Report: Creatinine Urine 125.69 Microalbumin Urine 30.0 Microalbum/Creatinine Ratio Ur 23.8 <30 ug/mg cr Albumin/Creatinine Ratio Reference Ranges: Normal: < 30 ug/mg creatinine Microalbuminuria: 30 - 300 ug/mg creatinine Clinical Albuminuria: > 300 ug/mg creatinine Hemoglobin A1c Reviewed date:12/26/2024 04:41:39 PM Interpretation: Performing Lab:[facility], [address] [place] [phone] Notes/Report: Hemoglobin A1c % 8.7 <6.0 % [...] average glucose, using the formula of the R8A-Ztkmqvo Average Glucose study (ADAG), Diabetes Care, Vol.31,#8, Jul. 2007 XR knee LT 4V (Not yet revie wed by provider) Interpretation: Performing Lab: Notes/Report: [address] [address] XRay Report Signed Patient: Eve Camara MR#: [id number] : 1960 Acct:[id number] Age/Sex: 64 / F ADM Date: 06/01/25 Loc: .ED Attending Dr: Ordering Physician: Hardeep Lee Date of Service: 06/01/25 Procedure(s): XR knee LT 4V Accession Number(s): [id number] cc: Gerald Treviño MD; Hardeep Lee EXAMINATION: XR KNEE, LEFT CLINICAL INFORMATION: pain COMPARISON: None available. TECHNIQUE: AP, lateral, bilateral oblique x-rays of the left knee. FINDINGS: Moderate arterial vascular calcifications are present. There is no joint effusion. No fracture line is evident. Kidneys tuberosity enthesophyte is noted. XR/XR knee LT 4V IMPRESSION: Unremarkable left knee. Electronically signed by: Darrell Keys MD 06/01/2025 01:07 PM EDT RP Dictated By: Darrell Keys MD Signed By: <Electronically signed by Darrell Keys MD in OV> 06/01/25 1307 DD/ 1300 TD/TT: 06/01/25 1305 County Program Technician: [place] [address] XRay Report Signed Patient: Eve Camara MR#: [id number] : 1960 Acct:[id number] Age/Sex: 64 / F ADM Date: 06/01/25 Loc: .ED Attending Dr: Ordering Physician: Hardeep Lee Date of Service: 06/01/25 Procedure(s): XR kne e LT 4V Accession Number(s): [id number] cc: Gerald Treviño MD; Hardeep Lee EXAMINATION: XR KNEE, LEFT CLINICAL INFORMATION: pain COMPARISON: None available. TECHNIQUE: AP, lateral, bilater al oblique x-rays of the left knee. FINDINGS: Moderate arterial vascular calcifications are present. There is no joint effusion. No fracture line is evident. Kidneys tuberosity enthesophyte is noted. XR/XR knee LT 4V IMPRESSION: Unremarkable left knee. Electronically vern d by: Darrell Keys MD 06/01/2025 01:07 PM EDT RP Dictated By: Darrell Keys MD Signed By: <Electronically signed by Darrell Keys MD in OV> 06/01/25 1307 DD/ 1300 TD/TT: 06/01/25 1305 County Program Technician: Reason For Referral Reason 5 year colonoscopy [...] Provider Speciality Internal M edicine Referred Organization [facility] Ce nter Referred Provider [facility] Referred Address [address] [place] [address],[place], [id number], Referred Provider Specialty OB - Gynecol ogy [...] Active glipiZIDE 10 MG 1 tablet Orally tw e a day 11/26/2024 Active Immunizations Vaccine [...] Problem Status W/U Status Risk Notes Problem 2183326 Former smoker (Z87.891) Active confirmed We have discuss ed a plan to prevent relapse in times of stress and illness. Problem 740944556397153 Obesity (BMI 30.0-34.9) (E66.9) Active confirmed Her weight is stable from her last visit at 171 pounds. Her BMI is in the obese range. We made a plan today to lose weight at a rate of one half of a pound per week through regular physical activity and a diet restricted in fat calories and sodium. Problem 35853608 Intramural leiomyoma of uterus (D25.1) Active confirmed Problem 502946287 Mixed hyperlipidemia (E78.2) Active confirmed Her total cholesterol is 225. I discussed weight loss and diet with her today. I recommended a Mediterranean diabetic diet. We made plans to lose weight at a rate of one half of a pound per week. Her current medications were continued. Problem 88788912 Hypercalcemia (E83.52) Active confirmed [facility] level is 10.7. Hyperparathyroidi sm is suspected. She will be referred to endocrinology. Problem Endometrial hyperplasia (304244554) Endometrial hyperplasia, unspecified (N85.00) Active confirmed Problem 16146428 Essential hypertension (I10) Active confirmed Her blood pressure is slightly high at 143/75. She does not wish to take additional blood pressure medication at this time. She says she is going to lose weight and restrict sodium. Follow-up appointment was given in the near future. Problem 219737118558860 Carpal tunnel syndrome, right (G56.01) Active confirmed The pain in her wrist has improved and is not a significant problem today. She is more focused upon shoulder pain. Problem 27715083 Stress incontinence of urine (N39.3) Active confirmed He is occasionally incontinent. This problem has not worsened. We discussed a referral to urology, and she will consider it. Problem 584380553 Type 2 diabetes mellitus without complication, without long-term current use of insulin (E11.9) Active confirmed Problem 733253167 Adenomatous polyp of colon, unspecified part of colon (D12.6) Active confirmed She denies any recent dental pain or bleeding. She will be referred to GI at the appropriate time. 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 Problem 050802308 Abnormal liver function test (R94.5) Active confirmed [...] Date Provider Diagnosis Gerald Treviño III, MD [address] [place] [address] [place] [phone] 09/30/2024 Gerald Treviño Obesity (BMI 30.0-34 .9) E66.9 ; Type 2 diabetes mellitus with complication, unspecified whether retirement insulin use E11.8 ; Mixed hyperlipidemia E78.2 ; Encounter for immunization Z23 ; Essential hypertension I10 ; Carpal tunnel syndrome, right G56.01 ; Intramural leiomyoma of uterus D25.1 ; Stress incontinence of urine N39.3 and Former smoker Z87.891 Gerald Treviño III, MD [address] [place] [address] [place] [phone] 12/29/2024 Gerald Treviño Essential hypertensi on I10 ; 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 E11.39 ; Obesity (BMI 30.0-34.9) E66.9 ; Former smoker Z87.891 ; Mixed hyperlipidemia E78.2 ; Abnormal liver function test R94.5 and Hypercalcemia E83.52 Gerald Treviño III, MD [address] [place] [address] [address] [place] [address] 09/27/2024 Gerald Treviño III, MD [address] [place] [address] [address] [place] [address] 11/26/2024 Gerald Treviño III, MD [address] [place] [address] [address] [place] [address] 01/14/2025 Gerald Treviño Assessments Encounter Date Diagnosis [...] 2 diabetes mellitus with complication, unspecified whether rat exterminator insulin use (ICD-10 - E11.8) I have [...] D25.1) 12/29/2024 Hypercalcemia (ICD-10 - E83.52) [facility] calcium level is 10.7. Hyperparathyroidism is suspected. [...] Order Date PROFILE, FASTING (COMPREHENSIVE METABOLI C) 01/21/2023 PROFILE, FASTING (COMPREHENSIVE METABOLI C) 10/09/2022 PROFILE, FASTING (COMPREHENSIVE METABOLI C) 04/16/2022 PROFILE, FASTING (COMPREHENSIVE METABOLI C) 12/29/2024 HEMOGLOBIN A1C (GLYCOHEMOGLOBIN) 023 HEMOGLOBIN A1C (GLYCOHEMOGLOBIN) 022 HEMOGLOBIN A1C (GLYCOHEMOGLOBIN) 022 URIC ACID 10/09/2022 LIPID PANEL 01/21/2023 LIPID PANEL 10/09/2022 MICROALBUMIN, RANDOM 01/21/2023 CBC w DIFF 12/29/2024 CBC w DIFF 04/16/2022 CBC w DIFF 01/21/2023 CBC w DIFF 10/09/2022 Lipid Panel 12/29/2024 Lipid Panel 04/16/2022 XR knee LT 4V 06/01/2025 Hemoglobin A1c 12/29/2024 Next Appt Details Provider Name:Gerald Treviño, 10/05/2025 09:30:00 AM, [address] [place] [address] [address], [address], [place], [address], Insurance Providers Payer Name Payer Address Payer Phone Subscriber Number Group Number Insured Name Patient Relationship to Insured Coverage Start Date Coverage End Date [facility] [address] [place] [address] [phone] [id number] Eve Camara Self - patient is the insured [place] [address] [place], [place] [id number] Eve Camara Self - patient is the insured Medical (General) History Medical History History ICD Code Carpal tunnel syndrome of right wrist G5 6.01 Hyperlipidemia, unspecified hyperlipidem ia type E78.5 [id number] diabetes mellitus multiple tubular adenomas of the colon uterine fibroid and abnormal 1.1 cm uterine stripe pelvic ultrasound December 2016, biopsy was recommended obesity hyperlipidemia essential hypertension urinary incontinence former smoker Diabetes Surgical History Surgery Date(Month/Year) No history Uterus biopsy [facility] 10/2020 colonoscopy, Dr. Ospina 01/2019 tubal ligation section X2 Hospitalization History Reason Date(Month/Year) No history
== END 2025-06-01 14:24 | disposition home or self-care (01) ==
PROVIDERS: Emergency Provider Emergency Medicine Emergency Medical Services; PCP Internal Medicine Medical Oncology
DX: M10.9 Gout, unspecified (principal); M25.562 Pain in left knee; E11.9 Type 2 diabetes mellitus without complications; I10 Essential (primary) hypertension; E78.00 Pure hypercholesterolemia, unspecified; Z79.84 Long term (current) use of oral hypoglycemic drugs; Z79.899 Other long term (current) drug therapy; Z79.02 Long term (current) use of antithrombotics/antiplatelets
CPT/HCPCS: 73564; 99283; 99284

== ENCOUNTER → 2025-06-01 12:49 | Outpatient (BNV) | payer MEDICAID, SELFPAY | PROVIDERS: Emergency Provider Emergency Medicine Emergency Medical Services; PCP Internal Medicine Medical Oncology; Visit Provider Radiology Diagnostic Radiology | DX: M25.562 Pain in left knee (principal) | CPT/HCPCS: 73564 ==

== ENCOUNTER 2025-08-22 11:23 | Emergency (ER) | payer MEDICAID, SELFPAY ==
--- NOTE | ~2025-08-22 | XR_ITS ---
EXAMINATION: XR FOOT, RIGHT CLINICAL INFORMATION: pain/swelling ?gout COMPARISON: None available. TECHNIQUE: AP, lateral, and oblique views of the right foot. FINDINGS: No fracture, dislocation, or suspicious bone lesion. Normal bone mineralization. Normal alignment. Joint spaces are preserved. No significant arthropathy. Normal plantar arch. Moderate-sized plantar calcaneal spur. Soft tissues appear normal. XR/XR foot RT min 3V IMPRESSION: 1. No acute bony or soft tissue abnormalities. Electronically signed by: Jeremias Bui MD 08/22/2025 12:06 PM EDT
--- NOTE | ~2025-08-22 | XR_ITS ---
EXAMINATION: XR ANKLE, RIGHT CLINICAL INFORMATION: ankle pain/swelling ?gout COMPARISON: 12/16/2017. TECHNIQUE: AP, lateral, and mortise views of the right ankle. FINDINGS: There is no fracture, dislocation, or suspicious bone lesion. There is normal alignment. The ankle mortise is intact. The talar dome is normal. The subtalar joints appear normal. There is a moderate-sized plantar calcaneal spur. There is mild lateral soft tissue swelling. XR/XR ankle RT min 3V IMPRESSION: 1. No acute bony abnormalities. Electronically signed by: Jeremias Bui MD 08/22/2025 12:05 PM EDT
--- NOTE | ~2025-08-22 | US_ITS ---
EXAMINATION: US TRIPLEX LOWER EXTREMITY, RIGHT CLINICAL INFORMATION: Right lower extremity swelling COMPARISON: None available. TECHNIQUE: Color-flow triplex imaging with spectral analysis and compression Doppler were performed on the right lower extremity. FINDINGS: Respiratory variation, normal compression and augmented flow are noted throughout the right lower extremity. The visualized common femoral vein, superficial femoral vein, profunda femoral vein, popliteal vein and midcalf peroneal and posterior tibial venous segments show no evidence of deep venous thrombosis. US/US venous duplex LE RT IMPRESSION: No evidence of deep venous thrombosis involving the right lower extremity. Electronically signed by: Darrell Keys MD 08/22/2025 01:56 PM EDT
[2025-08-22 11:25] VITALS: BP 144/79; PULSE 89; RESP 16; TEMP 36.2; O2SAT 100; BMI 25.5
--- NOTE | 2025-08-22 11:29 | ED.GENADULT ---
HPI - General Adult General Chief complaint: Extremity Injury, Lower Stated complaint: R ankle pain, swollen Time Seen by Provider: 08/22/25 12:22 History of Present Illness ED Provider: Omar Arias HPI narrative: 64-year-old female history of gout presents to ED for right ankle swelling and pain since yesterday. Patient denies any any trauma, fever, chills, recent long travel, recent surgery, leg pain/swelling, calf pain, pleurisy, chest pain or shortness of breath. Patient denies any fever or chills. Related Data Home Medications ?Medication ?Instructions ?Recorded ?Confirmed metformin 500 mg tablet 500 mg PO BID 09/26/20 10/30/20 glipizide 5 mg tablet 5 mg PO BID 10/30/20 10/30/20 hydrochlorothiazide 25 mg tablet 25 mg PO QAM 10/30/20 10/30/20 lisinopril 10 mg tablet 10 mg PO DAILY 10/30/20 10/30/20 simvastatin 10 mg tablet 10 mg PO BEDTIME 10/30/20 10/30/20 Previous Rx's ?Medication ?Instructions ?Recorded acetaminophen 650 mg 650 mg PO Q8H PRN pain #30 tabs 11/02/20 tablet,extended release (Tylenol 8 Hour) ibuprofen 800 mg tablet 800 mg PO Q8H PRN pain #30 tabs 11/02/20 fluconazole 150 mg tablet 150 mg PO ONCE PRN personal 1 day 03/11/22 (Diflucan) #1 tab cephalexin 500 mg capsule 500 mg PO BID 7 days #14 caps 10/03/22 doxycycline hyclate 100 mg capsule 100 mg PO BID #14 caps 10/03/22 ibuprofen 600 mg tablet 600 mg PO Q6H PRN fever or pain 10/07/22 #30 tabs cyclobenzaprine 5 mg tablet 5 mg PO TID PRN muscle spasm #10 04/15/25 tabs ibuprofen 600 mg tablet 600 mg PO Q8H PRN fever or pain 04/15/25 #20 tabs prednisone 10 mg tablet See Rx Instructions .Route 06/01/25 .COMPLEX #15 tabs cephalexin 500 mg capsule 500 mg PO QID 7 days #28 caps 08/22/25 doxycycline hyclate 100 mg capsule 100 mg PO BID 7 days #14 caps 08/22/25 indomethacin 50 mg capsule 50 mg PO TID 5 days #15 caps 08/22/25 prednisone 20 mg tablet 40 mg (2 x 20 mg) PO DAILY 5 days 08/22/25 #10 tabs Allergies Allergy/AdvReac Type Severity Reaction Status Date / Time No Known Allergies Allergy Verified 08/22/25 11:30 Review of Systems Review of Systems: Right ankle pain swelling Yes all other systems are reviewed and are negative [facility] Past Medical History Medical History Back abscess Elevated cholesterol delivery delivered Diabetes Hypertension Surgical History History of dilatation and curettage History of hysteroscopy Hx of section Tubal ligation status Family History Family History Paternal Grandmother Colon cancer Maternal Grandfather FH: throat cancer Social History Social History Alcohol intake: never Advance Directives: No Advance Directives Information Provided: No Sexual orientation: Straight/Heterosexual Gender identity: Female Physical Exam ED Vital Signs: Vital Signs - 24 hr 08/22/25 11:25 08/22/25 14:48 08/22/25 14:53 Temperature 97.2 F 97.9 F 97.9 F Pulse Rate 89 80 80 Respiratory Rate 16 16 16 Blood Pressure 144/79 H 132/68 132/68 Pulse Oximetry 100 100 100 Oxygen Delivery Method Room Air Room Air Room Air BMI result Body Mass Index 25.5 Const General: cooperative, healthy appearing, comfortable and no acute distress Orientation/consciousness: patient oriented x3 HENMT Head: Yes normal to inspection, Yes No palpable skull fracture present, Yes normocephalic and Yes atraumatic Eyes General: appearance normal, both eyes and all related structures Neck Neck: Yes normal visual inspection, Yes full ROM, Yes no lymphadenopathy, Yes no meningeal signs, Yes trachea midline, Yes supple, No anterior neck swelling and No tender Chest Chest palpation & inspection: normal inspection of the chest and normal palpation of entire chest wall Resp Effort & Inspection: normal respiratory effort and able to speak in complete sentences Auscultation: clear to auscultation bilaterally Cardio Jugular venous distension: no JVD Heart sounds: S1 normal heart sound present and S2 normal heart sound present GI Inspection: Yes normal to inspection Palpation (GI): Soft to palpation, not firm, nontender, no guarding and not rigid General: Yes no CVA tenderness Back/Spine/Pelvis Back: no CVA tenderness and No back tenderness Skin General skin exam: no rashes or lesions noted, elasticity normal and turgor normal Neuro General: patient oriented x3, gait normal, tone normal, moves all extremities, Normal light touch and pain sensation, no meningeal signs, no focal motor deficits, CN's II-XI intact bilaterally and normal sensation to monofilament Extrem Other: Bilateral ankle warm and swollen. Patient's complete range of motion of ankle. Negative for stiffness. Vascular motor neuro exam intact. Negative for leg swelling or calf pain Psych Appearance: grossly normal, well kempt and not disheveled Course Course Course Narrative: This is a Rapid Medical Examination (RME) performed by Viraj Garrett PA-C in triage. Full HPI, ROS, assessment and treatment plan per primary provider in the Main ED. Hx: 64 yo F here for eval of right ankle pain/swelling/redness on waking this morning. hx gout. Plan: labs, xr Medications Administered Discontinued Medications Generic Name Dose Route Start Last Admin Trade Name Freq PRN Reason Stop Dose Admin Ketorolac Tromethamine 30 mg 08/22/25 12:25 08/22/25 12:56 Ketorolac Tromethamine 30 Mg/Ml Vial IM 08/22/25 12:26 30 mg ONCE ONE Administration Prednisone 60 mg 08/22/25 12:25 08/22/25 12:55 Prednisone 20 Mg Tablet PO 08/22/25 12:26 60 mg ONCE ONE Administration Medical Decision Making Medical Decision Making [facility] Narrative: [age] year female with right ankle pain and swelling without any trauma. Patient has history of gout. Initial labs shows elevation in his CRP and uric acid. X-ray negative for osteomyelitis. Was sent for ultrasound to rule out DVT. 2:36pm: Your ultrasound negative DVT. Negative for elevated white blood cell count. CRP slightly elevated. Mild versus cellulitis. We will discharged with indomethacin, prednisone, and antibiotics. Not suspecting osteomyelitis, necrotizing fasciitis, arterial occlusion, compartment syndrome, lymphangitis, or any other life-threatening etiology. Differential Diagnosis Differential Diagnoses: The differential diagnosis associated with the presentation includes (Gout, cellulitis, DVT) Admission/Observation Consideration of admission/observation: Escalation of care including admission/observation considered Lab Data [facility] Lab Attestation statement: I reviewed the patient's lab results. 08/22/25 11:35 08/22/25 11:35 Labs: Lab Results 08/22/25 Range/Units 11:35 WBC 10.0 (4.8-10.8) X10*3/uL RBC 4.77 (4.20-5.50) X10*6/uL Hgb 13.5 (12.0-16.0) g/dl Hct 40.5 (37.0-47.0) % MCV 84.9 (80.0-98.0) fL MCH 28.3 (27.0-33.0) pg MCHC 33.3 (31.0-35.0) g/dl RDW 13.2 (11.0-16.0) % Plt Count 265 (160-400) X10*3/uL MPV 11.9 (9.4-12.3) fL Immature Gran % (Auto) 1.7 H (0.0-0.4) % Neut % (Auto) 60.3 (45-73) % Lymph % (Auto) 25.5 (20-40) % [place] % (Auto) 10.1 (2-11) % Eos % (Auto) 1.8 (0-4) % Baso % (Auto) 0.6 (0-2) % Lymph # (Auto) 2.6 (1.2-4.9) X10*3/uL [place] # (Auto) 1.0 (0.1-1.2) X10*3/uL Eos # (Auto) 0.2 (0.0-0.4) X10*3/uL Baso # (Auto) 0.1 (0.0-0.2) X10*3/uL Abs Immat Gran (auto) 0.17 H (0.00-0.03) X10*3/uL Absolute Neuts (auto) 6.0 (2.0-8.3) x10*3/uL Absolute Nucleated RBC 0.000 (0.0-0.012) X10*3/uL Nucleated RBC % (auto) 0.0 (0.0-0.2) /100WBC Sodium 137 (135-145) mmol/L Potassium 3.8 (3.3-5.1) mmol/L Chloride 102 (96-108) mmol/L Carbon Dioxide 27 (22-29) mmol/L Anion Gap 12 (12-20) BUN 13 (9-16) mg/dL Creatinine 0.65 (0.5-1.4) mg/dL Estim Creat Clear Calc 75.3 Estimated GFR > 60 Random Glucose 349 H (60-115) mg/dL Uric Acid 6.4 H (2.4-5.7) mg/dL Calcium 11.1 H (8.4-10.2) mg/dL Magnesium 1.6 (1.6-2.6) mg/dL Total Bilirubin 0.9 (0.0-1.0) mg/dL AST 21 (5-31) U/L ALT 50 H (0-31) U/L Alkaline Phosphatase 119 H (39-117) U/L C-Reactive Protein 6.85 H (< or = 0.50) mg/dL Total Protein 7.3 (6.5-8.0) g/dL Albumin 4.7 (3.5-5.0) g/dL Independent Interpretation I performed an independent interpretation of an: Plain X-Ray and Ultrasound Radiology Impression Discussion of test interpretation with radiology: I have reviewed the radiologist's reading. Independent Historian Clinical information obtained from an independent historian. History obtained from or confirmed by: Other (Patient) Prescription Management I considered prescription management with: Pain Medication and Antibiotic Discharge Plan Discharge Clinical Impression: Gout, Cellulitis Patient Disposition: Home, Self-Care Instructions: Cellulitis (ED), Low Purine Diet (ED), Gout (ED) Additional Instructions: Recommend follow-up with your primary care provider. Return to the ED immediately for worsening pain, redness, fever, chills, chest pain, shortness of breath, red streaks, bluish black discoloration, hotness, coldness, or any other concerning symptoms Prescriptions: New indomethacin 50 mg capsule 50 mg PO TID 5 Days Qty: 15 0RF Rx Instructions: administer with food or milk prednisone 20 mg tablet 40 mg PO DAILY 5 Days Qty: 10 0RF cephalexin 500 mg capsule 500 mg PO QID 7 Days Qty: 28 0RF doxycycline hyclate 100 mg capsule 100 mg PO BID 7 Days Qty: 14 0RF No Action lisinopril 10 mg tablet 10 mg PO DAILY hydrochlorothiazide 25 mg tablet 25 mg PO QAM glipizide 5 mg tablet 5 mg PO BID simvastatin 10 mg Tablet 10 mg PO BEDTIME ibuprofen 800 mg tablet 800 mg PO Q8H PRN (Reason: pain) Qty: 30 0RF acetaminophen [Tylenol 8 Hour] 650 mg tablet extended release 650 mg PO Q8H PRN (Reason: pain) Qty: 30 0RF Rx Instructions: Take four hours after ibuprofen ibuprofen 600 mg tablet 600 mg PO Q6H PRN (Reason: fever or pain) Qty: 30 0RF doxycycline hyclate 100 mg capsule 100 mg PO BID Qty: 14 0RF cephalexin 500 mg capsule 500 mg PO BID 7 Days Qty: 14 0RF prednisone 10 mg tablet See Rx Instructions .ROUTE .COMPLEX Qty: 15 0RF Rx Instructions: 50mg (5 tabs) x1 day, then 40 mg (4 tabs) x1 day, then 30 mg (3 tabs) x1 day, then 20 mg (2 tabs) times 1 day, then 10 mg (1 tab) x1 day cyclobenzaprine 5 mg tablet 5 mg PO TID PRN (Reason: muscle spasm) Qty: 10 0RF ibuprofen 600 mg tablet 600 mg PO Q8H PRN (Reason: fever or pain) Qty: 20 0RF metformin 500 mg tablet 500 mg PO BID fluconazole [Diflucan] 150 mg tablet 150 mg PO ONCE PRN (Reason: personal) 1 Days Qty: 1 1RF Stand Alone Forms: Work/School Release Interventions: ED Discharge Assessment Last Done: 08/22/25 14:53 Discharge Date/Time: 08/22/25 14:56 Print Language: German
[2025-08-22 11:54] LABS: MANUAL DIFF FLAG NO
[2025-08-22 12:03] LABS: Hematocrit 40.5 % (37.0-47.0); Hemoglobin 13.5 g/dl (12.0-16.0); Imm Gran Abs Auto 0.17 X10*3/uL (0.00-0.03); Imm Gran Pct Auto 1.7 % (0.0-0.4); Lymphocytes Absolute Auto 2.6 X10*3/uL (1.2-4.9); Mean Corpuscular HGB Conc 33.3 g/dl (31.0-35.0); Mean Corpuscular Hemoglobin 28.3 pg (27.0-33.0); Mean Corpuscular Volume 84.9 fL (80.0-98.0); NRBC Abs Auto 0.000 X10*3/uL (0.0-0.012); NRBC Pct Auto 0.0 /100WBC (0.0-0.2); Platelet Count 265 X10*3/uL (160-400); Red Blood Count 4.77 X10*6/uL (4.20-5.50); White Blood Count 10.0 X10*3/uL (4.8-10.8)
[2025-08-22 12:14] LABS: Alanine Aminotransferase 50 U/L (0-31); Albumin Level 4.7 g/dL (3.5-5.0); Alkaline Phosphatase 119 U/L (39-117); Anion Gap 12 (12-20); Aspartate Amino Transferase 21 U/L (5-31); Blood Urea Nitrogen 13 mg/dL (9-16); Calcium 11.1 mg/dL (8.4-10.2); Carbon Dioxide 27 mmol/L (22-29); Chloride 102 mmol/L (96-108); Creatinine Clr Calc Pharmacy 75.3; Estimated Glomerular Filt Rate > 60; Magnesium 1.6 mg/dL (1.6-2.6); Potassium 3.8 mmol/L (3.3-5.1); Sodium 137 mmol/L (135-145); Total Protein 7.3 g/dL (6.5-8.0); Uric Acid 6.4 mg/dL (2.4-5.7)
[2025-08-22 14:48] VITALS: BP 132/68; PULSE 80; RESP 16; TEMP 36.6; O2SAT 100
[2025-08-22 14:53] VITALS: BP 132/68; PULSE 80; RESP 16; TEMP 36.6; O2SAT 100
== END 2025-08-22 14:56 | disposition home or self-care (01) ==
PROVIDERS: Physician Assistant Medical; Emergency Provider Emergency Medicine
DX: M10.9 Gout, unspecified (principal); L03.115 Cellulitis of right lower limb; M25.571 Pain in right ankle and joints of right foot
CPT/HCPCS: 36415; 73610; 73630; 80053; 83735; 84550; 85025; 86140; 93971; 96372; 99284; J1885

== ENCOUNTER → 2025-08-22 11:28 | Outpatient (BNV) | payer MEDICAID, SELFPAY | PROVIDERS: Emergency Provider Emergency Medicine; Visit Provider Radiology Diagnostic Radiology | DX: R22.41 Localized swelling, mass and lump, right lower limb (principal); M25.571 Pain in right ankle and joints of right foot; M77.31 Calcaneal spur, right foot | CPT/HCPCS: 73610; 73630; 93971 ==

== ENCOUNTER 2025-10-04 07:18 | Outpatient (REF) | payer MEDICAID, SELFPAY ==
--- OUTSIDE RECORDS SUMMARY | 2024-04-07 12:30 | XMS_ITS ---
Author Organization Gerald Treviño III, MD Address [address] [place] [address] [address] [facility] [address] Care Team Providers Care Concrete Finisher Apprentice Name Role Phone Dr. Gerald Treviño III Primary Care Provider REASON FOR VISIT Annual Exam Social History Sex Assigned At : Social History Observation Description Sex Assigned At Female Encounters Encounter Location Date Provider Diagnosis Gerald Treviño III, MD [address] [place] [address] [place] [address] 04/07/2024 Gerald Treviño Plan Of Treatment Next Appt Details Provider Name:Gerald Treviño , 10/05/2025 09:30:00 AM, [address] [place] [address] [address]LO, [place], [address], Progress Notes * Eve VERASDOB:[birth year] (65 yo F)Acc No.[id number]:04/07/2024 Progress Notes Patient: Eve LAMAR Provider: Sofia Treviño MD :1960 A ge:63 Y S ex:Female Date:04/07/2024 Address:[address], [address], [id number] Subjective: * Chief Complaints: * 1 . Annual Exam. * Medical History: Objective: * Vitals: Assessment: Plan: * Treatment: * Images: * The named appointment provid er may or may not be the originator of this progress note, and it is not deemed complete until electronically signed by the appointment provider. Sign off status: Pending * Provider: Sofia Treviño MD Date: 0 04/07/2024 Generated for Carrie leyva/Kadeem/Kun on: 1 12/04/2024 07:19 AM EST
--- OUTSIDE RECORDS SUMMARY | 2024-09-27 11:34 | XMS_ITS ---
Author Organization Gerald Treviño III, MD Address [address] [place] [address] [address] [facility] [facility] [address] Care Team Providers Care Hand Hide Stretcher Name Role Phone Dr. Gerald Treviño III Primary Care Provider Medications Medication SIG (Take, Route, Frequency, Duration) Notes Start Date End Date Status hydroCHLOROthiazide 25 MG 1 tablet Orall y Once a day for 90 days 09/27/2024 09/22/2025 Active Social History Sex Assigned At : Social History Observation Description Sex Assigned At Female Encounters Encounter Location Date Provider Diagnosis Gerald Treviño III, MD [address] [place] [address] [address] [facility] [place] [address] 09/27/2024 Gerald Treviño Plan Of Treatment Medication Medication Name Sig Start Date Stop Date Notes hydroCHLOROthiazide 25 MG 1 tablet Orall y Once a day for 90 days 09/27/2024 09/22/2025 Next Appt Details Provider Name:Gerald Treviño , 10/05/2025 09:30:00 AM, [address] [place] [address] [place], [address], Progress Notes * Eve VERASDOB:[birth year] (64 yo F)Acc No.[id number]:09/27/2024 Patient: Pearl LAMARarita :1960 A ge:64 Y S ex:Female Address:[address], [address], [place], [address] * Refills Start hydroCHLOROthiazide Tablet, 25 MG, Orally, 90 Tablet, 1 tablet, Once a day, 90 days, Refills=3 * true * Date: Generated for Carrie leyva/Kadeem/Kun on: 12/04/2024 07:21 AM EST
--- OUTSIDE RECORDS SUMMARY | 2024-09-30 04:00 | XMS_ITS ---
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 Gerald Treviño III Primary Care Provider [phone] Allergies Allergen (clinical drug ingredient) Drug/Non Drug Allergy documented on EMR Reaction Allergy Type Onset Date Status No Known Drug Allergy Unknown Drug Allergy Active Results Component Value Reference Range Notes URINE DIP STICK Reviewed date:09/30/2024 09:33:16 AM Interpretation: Performing Lab: Notes/Report: SG 1.020 1.005 - 1.025 pH 5.0 5.0 - 9.0 EMMETT Negative Negative - NIT Negative Negative - PRO 15 Negative - Trace GLU 1000 Negative - KET 5 Negative - UBG 0.2 0.1 - 1.8 KEEGAN Negative 0.2 - 1.3 BLD Negative Negative - Lipid Panel Reviewed date:11/26/2024 04:15:45 PM Interpretation: Performing Lab:[facility], [address] [place] [phone] Notes/Report: Triglycerides 225 <150 mg/dL Desirable Triglyceride: less than 150 mg/dL Borderline High Triglyceride 150-199 mg/dL High Triglyceride: 200-499 mg/dL Very High Triglyceride: greater than or equal to 5OO mg/dL Cholesterol 234 <200 mg/dL Desirable Cholesterol: less than 200 mg/dL Borderline High Cholesterol: 200-239 mg/dL High Cholesterol: greater than 239 mg/dL LDL Cholesterol Calculated 149 <100 mg/dL Desirable LDL: less than 100 mg/dL Near Optimal/Above Optimal LDL: 110-129 mg/dL Borderline High LDL: 130-159 mg/dL High LDL: 160-189 mg/dL Very High LDL: greater than or equal to 190 mg/dL HDL Cholesterol 40 >40 mg/dL Desirable HDL: greater than 40 mg/dL Note: This HDL assay may give artificially low results in patients with liver disease. Hemoglobin A1c Reviewed date:11/26/2024 04:15:45 PM Interpretation: Performing Lab:[facility], [address] [place] [phone] Notes/Report: Hemoglobin A1c % 8.4 <6.0 % Hemoglobin A1C Reference Range Adults: 4.8 - 6.0 % Non diabetic: < 6.0 % Goal: < 7.0 % Additional Action Suggested: > 8.0 % Note: Hemoglobin A1c results are invalid for patients with abnormal amounts of HbF. Blood transfusions may impact the HbA1c concentration in the patient sample. Estimated Average Glucose 194 eAG = Estimated average glucose which is %A1C expressed as average glucose, using the formula of the J2R-Ldoilws Average Glucose study (ADAG), Diabetes Care, Vol.31,#8, Jul. 2007 Reason For Referral Reason 5 year colonoscopy Diagnosis 1 Adenomatous polyp of colon, unspecified part of colon (D12.6) Referral Organization Gerald Treviño III, MD Referring Provider First Name Gerald Referring Provider Last Name Hudson Referring Provider Speciality Internal M edicine Referred Provider Gerald Ospina Referred Provider Specialty Gastroentero logjonny General Notes Sofy Regan CMA 09/30 10:49:52 AM > Per Dr Treviño called Dr Ospina office made patient appt for her 5 year colonscopy screening for 01/12/2025 at 4pm pt given written information today while here in our office Referral Priority Routine Referral Appointment Date 01/12/2025 Reason incontience Diagnosis 1 Urinary incontinence , unspecified type (R32) Referral Organization Gerald Treviño III, MD Referring Provider First Name Gerald Referring Provider Last Name Hudson Referring Provider Speciality Internal edicine Referred Organization [facility] nter Referred Provider [facility] er, [facility] Referred Address [address] [place] [address],[place], [place],[id number], Referred Provider Specialty OB - Gynecol ogy General Notes Sofy Regan CMA 10/07 10:36:12 AM > ref/demo/progress note /labs faxed to pt OBGYN for review Referral Priority Routine Referral Appointment Date 01/26/2025 REASON FOR VISIT Annual Exam Medications Medication SIG (Take, Route, Frequency, Duration) Notes Start Date End Date Status hydroCHLOROthiazide 25 MG 1 tablet in th e morning Orally Once a day Active FreeStyle Lancets - test blood sugar twi ce a day Active FreeStyle Lite Test - - In Vitro test bl ood sugar twice a day Active Simvastatin 10 MG TAKE 1 TABLET BY JANICE TH EVERY DAY IN THE EVENING Active metFORMIN HCl 500 MG TAKE 2 TABLETS BY M OUTH TWICE A DAY WITH MEALS Active glipiZIDE 5 MG TAKE 1 TABLET BY JANICE TH TWICE A DAY Active Lisinopril 10 MG TAKE 1 TABLET BY JANICE TH EVERY DAY FOR 90 DAYS Active Immunizations Vaccine Route Administration Date Status Comme nts Influenza Vaccine Afluria IM Intramuscular 09/30/2024 Admi nistered Social History Tobacco Use: Social History Observation Description Date Details (start date - stop date) Former Smoker NA - NA Sex Assigned At : Social History Observation Description Sex Assigned At Female Tobacco Control (Standard) Question Answer Notes Tobacco use: Former smoker How long has it been since you last smoked? Grea ter than 10 years Additional Findings: Tobacco non-user Ex-cigaret te smoker AUDIT-C (Standard) Question Answer Notes Did you have a drink containing alcohol in the p ast year? No Points 0 Interpretation Negative Vital Signs Temperature 98.2 degrees Fahrenheit 09/30/20 24 Blood pressure systolic 133 mm Hg 09/30/20 24 Blood pressure diastolic 67 mm Hg 024 Heart Rate 72 /min 09/30/2024 Height 61 in 09/30/2024 Weight 171 lbs 09/30/2024 BMI 32.31 kg/m2 09/30/2024 Encounters Encounter Location Date Provider Diagnosis Gerald Treviño III, MD [address] [place] [address] DR [place], [place] [id number] 09/30/2024 Gerald Treviño Obesity (BMI 30.0-34 .9) E66.9 ; Type 2 diabetes mellitus with complication, unspecified whether policy checker insulin use E11.8 ; Mixed hyperlipidemia E78.2 ; Encounter for immunization Z23 ; Essential hypertension I10 ; Carpal tunnel syndrome, right G56.01 ; Intramural leiomyoma of uterus D25.1 ; Stress incontinence of urine N39.3 and Former smoker Z87.891 Assessments Encounter Date Diagnosis (ICD Code) Assessment Notes Treat ment Notes Treatment Clinical Notes 09/30/2024 Obesity (BMI 30.0-34.9) (ICD-10 - E66.9) She has gained 6 pounds and her body mass index is now 32.3. We discussed her diet and nutrition. We reviewed her weight loss strategy. We made a plaan to lose weight at a rate of one half of a pound per week through a diet restricted in fat calories and sodium combined with regular exercise. 09/30/2024 Type 2 diabetes mellitus with complication, unspecified whether policy checker insulin use (ICD-10 - E11.8) I have ordered a hemoglobin A1c and microalbumin and fasting glucose. This will be done in near future. 09/30/2024 Mixed hyperlipidemia (ICD-10 - E78.2) Current blood work is unavailable. I have ordered comprehensive lab work which will include a fasting lipid profile. 09/30/2024 Encounter for immunization (ICD-10 - Z23) She received influenza vaccine today without complications. 09/30/2024 Essential hypertension (ICD-10 - I10) Her blood pressure Is stable.. We are going to work on weight reduction, sodium restriction, and control of diabetes. 09/30/2024 Carpal tunnel syndrome, right (ICD-10 - G56.01) The pain in her wrist has improved and is not a significant problem today. She is more focused upon shoulder pain. 09/30/2024 Intramural leiomyoma of uterus (ICD-10 - D25.1) 09/30/2024 Stress incontinence of urine (ICD-10 - N39.3) He is occasionally incontinent. This problem has not worsened. We discussed a referral to urology, and she will consider it. 09/30/2024 Former smoker (ICD-1 0 - Z87.891) We have discussed a plan to prevent relapse in times of stress and illness. Plan Of Treatment Medication Medication Name Sig Start Date Stop Date Notes hydroCHLOROthiazide 25 MG 1 tablet in th e morning Orally Once a day FreeStyle Lancets - test blood sugar twice a day FreeStyle Lite Test - - In Vitro test bl ood sugar twice a day Simvastatin 10 MG TAKE 1 TABLET BY JANICE TH EVERY DAY IN THE EVENING metFORMIN HCl 500 MG TAKE 2 TABLETS BY M OUTH TWICE A DAY WITH MEALS glipiZIDE 5 MG TAKE 1 TABLET BY JANICE TH TWICE A DAY Lisinopril 10 MG TAKE 1 TABLET BY JANICE TH EVERY DAY FOR 90 DAYS Referrals Referral Date Details 09/30/2024 09/30/2024, 5 year c Gerald worley 09/30/2024 09/30/2024, chuckie cantrell, [facility], [address] [place] [address], [place], [place], [phone], Next Appt Details Follow Up: 3 Months, In thre e months, Reason: ov review labs, Follow-up Provider Name:Gerald Treviño , 10/05/2025 09:30:00 AM, [address] [place] [address], [place] [address], [place], [phone], Progress Notes * Eve VERASDOB:[birth year] (64 yo F)Acc No.[id number]:09/30/2024 Progress Notes Patient: Pearl LAMARarita Provider: Sofia Treviño MD :1960 A ge:64 Y S ex:Female Date:09/30/2024 Address:[address] [place] [address], [facility], [place], [id number] Subjective: * Chief Complaints: * A nnual Exam * HPI: D epression Screening: PHQ-9 L ittle interest or pleasure in doing things?More than half the days F eeling down, depressed, or hopeless N ot at all T rouble falling or staying asleep, or sleeping too much N early every day F eeling tired or having little energy N early every day P oor appetite or overeating N early every day F eeling bad about yourself or that you are a failure, or have let yourself or your family down M ore than half the days T rouble concentrating on things, such as reading the newspaper or watching television N early every day M oving or speaking so slowly that other people could have noticed; or the opposite, being so fidgety or restless that you have been moving around a lot more than usual M ore than half the days T houghts that you would be better off or of hurting yourself in some way N ot at all T otal Score 1 8 I nterpretation M oderately Severe Depression C OVID-19 Screening: Questions H ave you experienced fever, chills, cough, sore throat, shortness of breath, difficulty breathing, muscle aches, loss of taste or smell? N o H ave you been exposed to the virus within the last 10 days? N o H ave you travelled internationally in the last 10 days? N o H ave you been exposed to COVID-19 in the past? Y es S SUSAN Questions: SDOH Questions I n the past year have you been worried about losing your housing? N o I n the past year have you or any family members you live with been unable to get any of the following when it was really needed? Check all that apply: Ubaldo haney to answer * : The patient, a 64-year-old female, came in for her annual visit. She reported feeling a little stressed but otherwise okay. She has been experiencing some forgetfulness, including forgetting to get her blood work done and forgetting to take her medications. She has also been experiencing urinary incontinence, which she has not yet sought treatment for. She has gained about 5 lbs since her last visit in December. She has a history of diabetes, but she forgot to get her blood work done to check on her condition. She also reported occasional knee pain. * ROS: G eneral/Constitutional: pain l eft knee, otherwise only normal aches and pains.?Chills d enies. F atigue a dmits. F ever d enies. E NT: Decreased hearing d enies. R espiratory: Cough d enies. C ardiovascular: Chest pain with exertion d enies. D yspnea on exertion?denies. S hortness of breath d enies. G astrointestinal: Constipation o ccasional. D ecreased appetite d enies. D iarrhea d enies. H eartburn d enies. N ausea d enies. R ectal bleeding d enies. V omiting d enies. H ematology: bruising d enies. p etechiae d enies. S wollen glands n one have been noted. G enitourinary: Frequent urination a t night. M usculoskeletal: Muscle aches d enies. P ainful joints d enies. S ciatica d enies. W eakness d enies. S kin: Itching d enies. R rafael d enies. S kin lesion(s)?denies. N eurologic: Difficulty speaking d enies. D izziness d enies.?Headache d enies. L ow back pain d enies. P sychiatric: Depressed mood d enies. * Medical History: * Surgical History: c esarean section X2 tubal ligation colonoscopy, Dr. Ospina 01/2019Uterus biopsy [facility] [place] 10/2020No history * Hospitalization/Major Diagno stic Procedure: N o history * Family History: F ather: 73 yrs, Diabetes mellitus, hypertension, diagnosed with HTN, DM. M other: 65 yrs, Liver cancer, hypertension, diagnosed with HTN, Cancer. S iblings: alive, diagnosed with Hyperlipidemia. P aternal Grand Mother: , diagnosed with Cancer. M aternal Grand Mother: , diagnosed with Cancer. 2 brother(s) , 2 sister(s) . 2 son(s) - healthy. . Her siblings have hyperlipidemia, restless leg syndrome, osteoarthritis and sleep apnea. A paternal grand mother had bowel cancer. Another had lung cancer. The patient's children are alive and well and healthy. She is not aware of any family history of mental illness or substance use disorder or addiction. Brother from hear failure. * Social History: T obacco Use: T obacco Control (Standard) T obacco use: F ormer smoker H ow long has it been since you last smoked??Greater than 10 years A dditional Findings: Tobacco non-user E x-cigarette smoker D rugs/Alcohol: D rugs H ave you used drugs other than those for medical reasons in the past 12 months? N o D rug/Alcohol: A KORTNEY-C (Standard) D id you have a drink containing alcohol in the past year? N o P oints 0 I nterpretation N egative S he was born in [place] and moved to [facility] when she was 8 years old. She was raised in [place]. She has 2 sons, Michael 34 years old and direct 30 years old, who are alive and well. She has no grandchildren. * Medications: T akingFreeStyle Lite Test - Strip - In Vitro test blood sugar twice a day FreeStyle Lancets - Miscellaneous test blood sugar twice a day hydroCHLOROthiazide 25 MG Tablet 1 tablet in the morning Orally Once a day Simvastatin 10 MG Tablet TAKE 1 TABLET BY MOUTH EVERY DAY IN THE EVENING metFORMIN HCl 500 MG Tablet TAKE 2 TABLETS BY MOUTH TWICE A DAY WITH MEALS glipiZIDE 5 MG Tablet TAKE 1 TABLET BY MOUTH TWICE A DAY Lisinopril 10 MG Tablet TAKE 1 TABLET BY MOUTH EVERY DAY FOR 90 DAYS Taking FreeStyle Lite Test - Strip - In Vitro test blood sugar twice a day Taking FreeStyle Lancets - Miscellaneous test blood sugar twice a day Taking hydroCHLOROthiazide 25 MG Tablet 1 tablet in the morning Orally Once a day Taking Simvastatin 10 MG Tablet TAKE 1 TABLET BY MOUTH EVERY DAY IN THE EVENING Taking metFORMIN HCl 500 MG Tablet TAKE 2 TABLETS BY MOUTH TWICE A DAY WITH MEALS Taking glipiZIDE 5 MG Tablet TAKE 1 TABLET BY MOUTH TWICE A DAY Taking Lisinopril 10 MG Tablet TAKE 1 TABLET BY MOUTH EVERY DAY FOR 90 DAYS DiscontinuedBactrim DS 800-160 MG Tablet 1 tablet Orally Twice a day Bactrim DS 800-160 MG Tablet 1 tablet Orally Twice a day Bactrim DS 800-160 MG Tablet 1 tablet Orally Twice a day Medication List reviewed and reconciled with the patientDiscontinued Bactrim DS 800-160 MG Tablet 1 tablet Orally Twice a day Discontinued Bactrim DS 800-160 MG Tablet 1 tablet Orally Twice a day Discontinued Bactrim DS 800-160 MG Tablet 1 tablet Orally Twice a day Medication List reviewed and reconciled with the patient * Allergies: N o Known Drug Allergyno[Allergies Verified] Objective: * Vitals: H t: 61, Wt: 171, BMI:32.31, BP: 133/67, HR: 72, Temp: 98.2, Wt-k.56. * Examination: G eneral Examination: GENERAL APPEARANCE: p leasant, well nourished, well developed, in no acute distress, calm and relaxed, obese, man. HEAD: a traumatic, normocephalic. EYES: e hannah, perrla, anicteric, conjugate. EARS: n ormal. NOSE: s eptum intact. ORAL CAVITY: n ormal, unremarkable. NECK/THYROID: n o jugular venous distention, no carotid bruit, thyroid normal. LYMPH NODES: n o enlarged lymph nodes,spleen normal. SKIN: n o suspicious lesions, anicteric. HEART: n o clicks, gallops, murmurs, or rubs, regular rhythm, S1, S2 normal, no s3, or vascular bruits. LUNGS: c lear to auscultation . BREASTS: N ot examined. ABDOMEN: b owel sounds normal, no ascites, no organomegaly, no mass, centripital obesity. RECTAL EXAM: n ot examined. MUSCULOSKELETAL: e xtremities unremarkable, no clubbing, cyanosis or edema. PERIPHERAL PULSES: n ormal. NEUROLOGIC: a lert and oriented, cranial nerves 2-12 grossly intact, deep tendon reflexes 2+ symmetrical, motor strength normal upper and lower extremities, sensory exam intact. PSYCH: a lert, oriented. - : H eart and Lungs:Healthy, Skin: Few skin tags, no concern, Weight: Gained 5 lbs since December. Assessment: * Assessment: 1. T ype 2 diabetes mellitus with complication, unspecified whether policy checker insulin use - E11.8 (Primary) N otes :I have ordered a hemoglobin A1c and microalbumin and fasting glucose. This will be done in near future. 2 . O clifton (BMI 30.0-34.9) - E66.9 N otes :She has gained 6 pounds and her body mass index is now 32.3. We discussed her diet and nutrition. We reviewed her weight loss strategy. We made a plaan to lose weight at a rate of one half of a pound per week through a diet restricted in fat calories and sodium combined with regular exercise. 3 . M ixed hyperlipidemia - E78.2 N otes :Current blood work is unavailable. I have ordered comprehensive lab work which will include a fasting lipid profile. 4 . E ncounter for immunization - Z23 N otes :She received influenza vaccine today without complications. 5 . E ssential hypertension - I10 N otes :Her blood pressure Is stable.. We are going to work on weight reduction, sodium restriction, and control of diabetes. 6 . C arpal tunnel syndrome, right - G56.01 N otes :The pain in her wrist has improved and is not a significant problem today. She is more focused upon shoulder pain. 7 . I ntramural leiomyoma of uterus - D25.1 8 . S tress incontinence of urine - N39.3 N otes :He is occasionally incontinent. This problem has not worsened. We discussed a referral to urology, and she will consider it. 9 . F ormer smoker - Z87.891 N otes :We have discussed a plan to prevent relapse in times of stress and illness. Plan: * Treatment: Value Reference Range T riglycerides 225 H <150 - mg/dL * C holesterol 234 H <200 - mg/dL * L DL Cholesterol Calculated 149 H <100 - mg/dL * H DL Cholesterol 40 L >40 - mg/dL ?LAB: Hemoglobin A1c (Collection Date & Time - 10/02/2024 09:44 AM)* Value Reference Range H emoglobin A1c % 8.4 H <6.0 - % * E stimated Average Glucose 194 - mg/dL 2.?Obesity (BMI 30.0-34.9)?LAB: PROFILE, FASTING (COMPREHENSIVE METABOLIC) ?LAB: MICROALBUMIN, RANDOM ?LAB: CBC w DIFF ?LAB: Lipid Panel (Collection Date & Time - 10/02/2024 09:44 AM)* Value Reference Range T riglycerides 225 H <150 - mg/dL * C holesterol 234 H <200 - mg/dL * L DL Cholesterol Calculated 149 H <100 - mg/dL * H DL Cholesterol 40 L >40 - mg/dL ?LAB: Hemoglobin A1c (Collection Date & Time - 10/02/2024 09:44 AM)* Value Reference Range H emoglobin A1c % 8.4 H <6.0 - % * E stimated Average Glucose 194 - mg/dL 3.?Mixed hyperlipidemia?LAB: PROFILE, FASTING (COMPREHENSIVE METABOLIC) ?LAB: MICROALBUMIN, RANDOM ?LAB: CBC w DIFF ?LAB: Lipid Panel (Collection Date & Time - 10/02/2024 09:44 AM)* Value Reference Range T riglycerides 225 H <150 - mg/dL * C holesterol 234 H <200 - mg/dL * L DL Cholesterol Calculated 149 H <100 - mg/dL * H DL Cholesterol 40 L >40 - mg/dL ?LAB: Hemoglobin A1c (Collection Date & Time - 10/02/2024 09:44 AM)* Value Reference Range H emoglobin A1c % 8.4 H <6.0 - % * E stimated Average Glucose 194 - mg/dL 4.?Essential hypertension?LAB: PROFILE, FASTING (COMPREHENSIVE METABOLIC) ?LAB: MICROALBUMIN, RANDOM ?LAB: CBC w DIFF ?LAB: Lipid Panel (Collection Date & Time - 10/02/2024 09:44 AM)* Value Reference Range T riglycerides 225 H <150 - mg/dL * C holesterol 234 H <200 - mg/dL * L DL Cholesterol Calculated 149 H <100 - mg/dL * H DL Cholesterol 40 L >40 - mg/dL ?LAB: Hemoglobin A1c (Collection Date & Time - 10/02/2024 09:44 AM)* Value Reference Range H emoglobin A1c % 8.4 H <6.0 - % * E stimated Average Glucose 194 - mg/dL 5.?Others? Continue glipiZIDE Tablet, 5 MG, TAKE 1 TABLET BY MOUTH TWICE A DAY;?Continue Lisinopril Tablet, 10 MG, TAKE 1 TABLET BY MOUTH EVERY DAY FOR 90 DAYS;?Continue metFORMIN HCl Tablet, 500 MG, TAKE 2 TABLETS BY MOUTH TWICE A DAY WITH MEALS;?Continue Simvastatin Tablet, 10 MG, TAKE 1 TABLET BY MOUTH EVERY DAY IN THE EVENING;?Continue FreeStyle Lite Test Strip, -, -, In Vitro, test blood sugar twice a day;?Continue FreeStyle Lancets Miscellaneous, -, test blood sugar twice a day;?Continue hydroCHLOROthiazide Tablet, 25 MG, 1 tablet in the morning, Orally, Once a day. ? Referral To:Gerald Ospina??Gastroenterology ?Reason:5 year colonoscopy ? Referral To:[facility]??OB - Gynecology ?Reason:incontience * Immunizations: Influenza Vaccine Afluria : 0.5 mL (Dose No:1) (Route: Intramuscular) given by Neha Goldberg on Left Arm (Encounter for immunization) ???Immunization record has been reviewed and updated. * Labs: * L ab: URINE DIP STICK (Collection Date & Time - 09/30/2024) Value Reference Range S G 1.020 1.005 - 1.025 * p H 5.0 5.0 - 9.0 * L EU Negative Negative - * N IT Negative Negative - * P RO 15 Negative - Trace * G JOESPH 1000 Negative - * K ET 5 Negative - * U BG 0.2 0.1 - 1.8 * B IL Negative 0.2 - 1.3 * B LD Negative Negative - * Procedure Codes: 8 1002 URINE-NO [id number] VAC NO PRSV 0.5 ML [id number] FLU VACC 4 HAIDER 3 YRS PLUS IM * Preventive Medicine: Counseling: C are goal follow-up plan: Counseling for abnormal BMI given Y es Above Normal BMI Follow-up D ietary management education, guidance, and counseling, Dietary needs education, Exercise promotion: strength training, Exercise promotion: stretching, Feeding regime, Giving encouragement to exercise, Lifestyle education regarding diet, Nutrition / feeding management, Nutrition therapy, Prescribed activity/exercise education, Prescribed diet education, Prescribed dietary intake, Special diet education, Weight monitoring , Intervention, Order not done: Medical or Other reason not done S moking/Tobacco Use Patient counseled on the dangers of tobacco use and urged to quit. 1 DM Care Plan: P atient Lifestyle Goals P atient wants to be able to manage diabetes without too much effort. T reatment Goals H bA1C < 7.0, Blood Sugars less than < 115. B arriers n o barriers. S elf-Managment Goals W ork on weight loss, with a goal of losing 1 lb per week. * Follow Up: 3 Months, In three months (Reason: ov review labs, Follow-up) * Images: * Sign off status: Completed true * Provider: Sofia Treviño MD Date: Generated for Carrie leyva/Kadeem/eTransmitting on: 12/04/2024 07:20 AM EST History and Physical Notes * HPI (History of Present Illness) Category Sub-Category Detail Notes Depression Screening PHQ-9 Little inte rest or pleasure in doing things: More than half the days Feeling down, depressed, or hopeless: No t at all Trouble falling or staying asleep, or sl eeping too much: Nearly every day Feeling tired or having little energy: N early every day Poor appetite or overeating: Nearly ever y day Feeling bad about yourself o r that you are a failure, or have let yourself or your family down: More than half the days Trouble concentrating on thi ngs, such as reading the newspaper or watching television: Nearly every day Moving or speaking so slowly that other people could have noticed; or the opposite, being so fidgety or restless that you have been moving around a lot more than usual: More than half the days Thoughts that you would be b natalie off or of hurting yourself in some way: Not at all Total Score: 18 Interpretation: Moderately Severe Depres davie COVID-19 Screening Questions Have you had any new onset fever, chills, cough, congestion, sore throat, shortness of breath, muscle aches?: No Have you been exposed to the virus withi n the last 10 days?: No Have you travelled internationally in e last 10 days?: No Have you been exposed to COVID-19 in the past?: Yes SDOH Questions SDOH Questions In the past year have you been worried about losing your housing?: No In the past year have you or any family members you live with been unable to get any of the following when it was really needed? Check all that apply:: Decline to answer Examination Category Sub-Category Detail Notes General Examination GENERAL APPEARANCE: pleasant , well nourished, well developed, in no acute distress, calm and relaxed, obese, man HEAD: atraumatic, normocep halic EYES: eomi, perrla, anicte santos, conjugate EARS: normal NOSE: septum intact NECK/THYROID: no jugular venous di stention, no carotid bruit, thyroid normal HEART: no clicks, gallops, murmurs, or rubs, regular rhythm, S1, S2 normal, no s3, or vascular bruits LUNGS: clear to auscultatio n ABDOMEN: bowel sounds normal, no ascites, no organomegaly, no mass, centripital obesity NEUROLOGIC: alert and oriented, cranial nerves 2-12 grossly intact, deep tendon reflexes 2+ symmetrical, motor strength normal upper and lower extremities, sensory exam intact SKIN: no suspicious lesion s, anicteric PERIPHERAL PULSES: normal BREASTS: Not examined MUSCULOSKELETAL: extremities unremark able, no clubbing, cyanosis or edema LYMPH NODES: no enlarged lymph no viv,spleen normal RECTAL EXAM: not examined PSYCH: alert, oriented ORAL CAVITY: normal, unremarkable Consultation Request Notes Referral Date Referring Provider Referred Provider Not es 09/30/2024 Gerald Treviño Robert 5 year colono scopy 09/30/2024 Gerald Treviño [facility], HEAD OF MARKETING ADOMETRY & Midwifery incontience
--- OUTSIDE RECORDS SUMMARY | 2024-11-26 11:13 | XMS_ITS ---
Author Organization Gerald Treviño III, MD Address [address] [place] [address] [address] [facility] [place] [address] Care Team Providers Care C.O.D. Clerk Name Role Phone Dr. Gerald Treviño III Primary Care Provider [phone] Medications Medication SIG (Take, Route, Fr equency, Duration) Notes Start Date End Date Status glipiZIDE 10 MG 1 tablet Orally twic e a day for 30 days 11/26/2024 Active Social History Sex Assigned At : Social History Observation Description Sex Assigned At Female Encounters Encounter Location Date Provider Diagnosis Gerald Treviño III, MD [address] [place] [address] [place] [address] 11/26/2024 Gerald Treviño Plan Of Treatment Medication Medication Name Sig Start Date Stop Date Notes glipiZIDE 10 MG 1 tablet Orally twice a day for 30 days Next Appt Details Provider Name:Gerald Treviño , 10/05/2025 09:30:00 AM, [address] [place] [address] [place], [phone], Progress Notes * Eve VERASDOB:[birth year] (64 yo F)Acc No.[id number]:11/26/2024 Patient: Pearl LAMARarita :1960 A ge:64 Y S ex:Female Address:[address], [place], [address] * Refills Start glipiZIDE Tablet, 10 MG, Orally, 60 Tablet, 1 tablet, twice a day, 30 days, Refills=11 * true * Date: Generated for Carrie leyva/Kadeem/Kun on: 12/04/2024 07:20 AM EST
--- OUTSIDE RECORDS SUMMARY | 2024-12-29 10:30 | XMS_ITS ---
Author Organization Gerald Treviño III, MD Address [address] [place] [address] DR [place] [place] [address] Care Team Providers Care [employer] Name Role Phone Dr. Gerald Treviño III Primary Care Provider Allergies Allergen (clinical drug ingredient) Drug/Non Drug Allergy documented on EMR Reaction Allergy Type Onset Date Status No Known Drug Allergy Unknown Drug Allergy Active REASON FOR VISIT Hypertension, Diabetes, Obesity, Hyperlipidemia, Stress incontinence, Hypercalcemia Medications Medication SIG (Take, Route, Frequency, Duration) [...] OUTH TWICE A DAY WITH MEALS Active Lisinopril 10 MG TAKE 1 TABLET BY JANICE TH EVERY DAY FOR 90 DAYS Active glipiZIDE 10 MG 1 tablet Orally twic e a day 11/26/2024 Active Pioglitazone HCl 15 MG 1 tablet Orally O nce a day for 30 days 12/29/2024 Active Social History Tobacco Use: Social History Observation Description Date Details (start date - stop date) Former Smoker NA - NA Sex Assigned At : Social History Observation Description Sex Assigned At Female Tobacco Control (Standard) Question Answer Notes Tobacco use: Former smoker How long has it been since you last smoked? Grea ter than 10 years Additional Findings: Tobacco non-user Ex-cigaret te smoker Problems Problem Type SNOMED Code ICD Code Onset Dates Problem Status W/U Status Risk Notes Problem 110996733 Abnormal liver function test (R94.5) Active confirmed Her transaminase enzymes are rising again. They had been normalizing. This is likely due to uncontrolled diabetes which will be addressed.These values will be carefully observed. 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 She does not wish to take additional blood pressure medication at this time. She says she is going to lose weight and restrict sodium. Follow-up appointment was given in the near future. 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 The hemoglobin A1c has increased recently from 7.8-8.4 and is now 8.7. We have discussed weight loss and diet today. We discussed nutrition. We discussed the dietary control of diabetes. We made a plan to lose weight at a rate of one half of a pound per week. I have added pioglitazone to her regimen. I offered to give her trulicity or Ozempic but she declined wishing to use injected medications. 12/29/2024 Obesity (BMI 30.0-34.9) (ICD-10 - E66.9) Her weight is stable from her last visit at 171 pounds. Her BMI is in the obese range. We made a plan today to lose weight at a rate of one half of a pound per week through regular physical activity and a diet restricted in fat calories and sodium. 12/29/2024 Former smoker (ICD-10 - Z87.891) We have discussed a plan to prevent relapse in times of stress and illness. 12/29/2024 Mixed hyperlipidemia (ICD-10 - E78.2) Her total cholesterol is 225. I discussed weight loss and diet with her today. I recommended a Mediterranean diabetic diet. We made plans to lose weight at a rate of one half of a pound per week. Her current medications were continued. 12/29/2024 Abnormal liver function test (ICD-10 - R94.5) Her transaminase enzymes are rising again. They had been normalizing. This is likely due to uncontrolled diabetes which will be addressed.These values will be carefully observed. 12/29/2024 Hypercalcemia (ICD-10 - E83.52) The [facility] calcium level is 10.7. Hyperparathyroidism is suspected. She will be referred to endocrinology. Plan Of Treatment Medication Medication Name Sig [...] M OUTH TWICE A DAY WITH MEALS Lisinopril 10 MG TAKE 1 TABLET BY JANICE TH EVERY DAY FOR 90 DAYS glipiZIDE 10 MG 1 tablet Orally twice a day 11/26/2024 Pioglitazone HCl 15 MG 1 tablet Orally O nce a day for 30 days 12/29/2024 Pending Test Test Name Order Date PROFILE, FASTING (COMPREHENSIVE METABOLI C) 12/29/2024 CBC w DIFF 12/29/2024 Lipid Panel 12/29/2024 Hemoglobin A1c 12/29/2024 Next Appt Details Follow Up: 3 Months, Reason: ov review labs Provider Name:Gerald Treviño , 10/05/2025 09:30:00 AM, [address] [place] [address] DR [facility] Kayce, [place], [phone], Progress Notes * Raghu VERAS:[birth year] (64 yo F)Acc No.[id number]:12/29/2024 Progress Notes Patient: Eve LAMAR Provider: Sofia Treviño MD :1960 A ge:64 Y S ex:Female Date:12/29/2024 Address:[address] [place] [address], [facility] [place], [place], [id number] Subjective: * Chief Complaints: * H ypertensionDiabetesObesityHyperlipidemiaStress incontinenceHypercalcemia * HPI: C OVID-19 Screening: Questions H ave you had any new onset fever, chills, cough, congestion, sore throat, shortness of breath, muscle aches? N o * : The patient, a 64-year-old female, has been experiencing joint and muscle pains, primarily on her left side. The pain is severe enough to affect her ability to work and is not relieved by painkillers. She has also been experiencing fatigue, often falling asleep immediately after eating. She has a history of carpal tunnel syndrome and diabetes. 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 She also reports high levels of stress at work. Blood Sugar Level is 212. * ROS: G eneral/Constitutional: pain P rimarily left arm and leg muscle aches and joint pains which are chronic but recently increased. C hills d enies. F atigue a dmits. F ever d enies. E NT: Decreased hearing d enies. R espiratory: Cough d enies. C ardiovascular: Chest pain with exertion d enies. D yspnea on exertion?denies. S hortness of breath d enies. G astrointestinal: Constipation o ccasional. D ecreased appetite d enies. D iarrhea d enies. H eartburn o ccasional. N ausea d enies. R ectal bleeding [...] tubal ligation colonoscopy, Dr. Ospina 01/2019Uterus biopsy [facility] [place] 10/2020No history * Hospitalization/Major Diagno stic Procedure: N o history * Family History: F ather: 73 yrs, Diabetes mellitus, hypertension, diagnosed with DM, HTN. M other: 65 yrs, Liver cancer, hypertension, [...] dditional Findings: Tobacco non-user E x-cigarette smoker S he was born in [place] and moved to [facility] [place] when she was 8 years old. She was raised in [place]. She has 2 sons, Michael 34 years old and juan jose 30 years old, who are alive and well. She has no grandchildren. * Medications: T akingLisinopril 10 MG Tablet TAKE 1 TABLET BY MOUTH EVERY DAY FOR 90 DAYS metFORMIN HCl 500 MG Tablet TAKE 2 TABLETS BY MOUTH TWICE A DAY WITH MEALS Simvastatin 10 MG Tablet TAKE 1 TABLET BY MOUTH EVERY DAY IN THE EVENING FreeStyle Lite Test - Strip - In Vitro test blood sugar twice a day FreeStyle Lancets - Miscellaneous test blood sugar twice a day hydroCHLOROthiazide 25 MG Tablet 1 tablet in the morning Orally Once a day glipiZIDE 10 MG Tablet 1 tablet Orally twice a day Taking Lisinopril 10 MG Tablet TAKE 1 TABLET BY MOUTH EVERY DAY FOR 90 DAYS Taking metFORMIN HCl 500 MG Tablet TAKE 2 TABLETS BY MOUTH TWICE A DAY WITH MEALS Taking Simvastatin 10 MG Tablet TAKE 1 TABLET BY MOUTH EVERY DAY IN THE EVENING Taking FreeStyle Lite Test - Strip - In Vitro test blood sugar twice a day Taking FreeStyle Lancets - Miscellaneous test blood sugar twice a day Taking hydroCHLOROthiazide 25 MG Tablet 1 tablet in the morning Orally Once a day Taking glipiZIDE 10 MG Tablet 1 tablet Orally twice a day DiscontinuedglipiZIDE 5 MG Tablet TAKE 1 TABLET BY MOUTH TWICE A DAY Medication List reviewed and reconciled with the patientDiscontinued glipiZIDE 5 MG Tablet TAKE 1 TABLET BY MOUTH TWICE A DAY Medication List reviewed and reconciled with the patient * Allergies: N o Known Drug Allergyno[Allergies Verified] Objective: * Vitals: H t: 61, Wt: 171, BMI:32.31, BP: 143/75, HR: 81, Temp: 97.9, Wt-k.56. * P ast Orders: Lab:Microalbumin, Random * Collection Date 12/25/2024 10/02/2024 10/06/2021 Collection Time 09:30 AM 09:40 AM 08:54 AM Order Date 12/25/2024 10/02/2024 10/06/2021 Creatinine Urine 125.69 (Ref Range: mg/dL) 157.46 (Ref Range: mg/dL) 118.40 (Ref Range: mg/dL) Microalbumin Urine 30.0 (Ref Range: mg/L) 51.0 (Ref Range: mg/L) 59.0 (Ref Range: mg/L) Microalbum Creatinine Ratio Ur 23.8 (Ref Range: <30 ug/mg cr) 32.3 H (Ref Range: <30 ug/mg cr) 49.8 (Ref Range: ug/mg cr) * Lab:Lipid Panel * Collection Date 12/25/2024 10/02/2024 04/13/2022 Collection Time 09:30 AM 09:44 AM 07:39 AM Order Date 12/25/2024 09/30/2024 04/13/2022 Triglycerides 219 H (Ref Range: <150 mg/dL) 225 H (Ref Range: <150 mg/dL) 223 (Ref Range: mg/dL) Cholesterol 225 H (Ref Range: <200 mg/dL) 234 H (Ref Range: <200 mg/dL) 231 (Ref Range: mg/dL) LDL Cholesterol Calculated 144 H (Ref Range: <100 mg/dL) 149 H (Ref Range: <100 mg/dL) 147 (Ref Range: mg/dl) HDL Cholesterol 38 L (Ref Range: >40 mg/dL) 40 L (Ref Range: >40 mg/dL) 40 (Ref Range: mg/dL) Clinical Info: Please have this testing 1 week prior to your next appointment,Please fast for 12-14 hours prior to having this labwork done. You may have black coffee or tea with no milk or sugar. May have water,PLEASE FAX COMPLETED RESULTS TO [phone] Please have this testing done as soon as possible,Please fast for 12-14 hours prior to having this labwork done. You may have black coffee or tea with no milk or sugar. May have water,PLEASE FAX COMPLETED RESULTS TO [phone] * Lab:Marlee plunkett Fast * Collection Date 12/25/2024 10/02/2024 04/13/2022 Collection Time 09:30 AM 09:44 AM 07:39 AM Order Date 12/25/2024 10/02/2024 04/13/2022 Sodium 139 (Ref Range: 135-145 mmol/L) 140 (Ref Range: 135-145 mmol/L) 138 (Ref Range: 135-145 mmol/L) Bilirubin Total 0.4 (Ref Range: 0.0-1.0 mg/dL) 0.5 (Ref Range: 0.0-1.0 mg/dL) 0.4 (Ref Range: 0.0-1.0 mg/dL) Aspartate Amino Transferase 43 H (Ref Range: 5-31 U/L) 40 H (Ref Range: 5-31 U/L) 30 (Ref Range: 5-31 U/L) Alanine Aminotransferase 75 H (Ref Range: 0-31 U/L) 67 H (Ref Range: 0-31 U/L) 61 H (Ref Range: 0-31 U/L) Total Protein 7.2 (Ref Range: 6.5-8.0 g/dL) 6.9 (Ref Range: 6.5-8.0 g/dL) 7.3 (Ref Range: 6.5-8.0 g/dL) Albumin Level 4.3 (Ref Range: 3.5-5.0 g/dL) 4.2 (Ref Range: 3.5-5.0 g/dL) 4.4 (Ref Range: 3.5-5.0 g/dL) Alkaline Phosphatase 126 H (Ref Range: 39-117 U/L) 109 (Ref Range: 39-117 U/L) 127 H (Ref Range: 39-117 U/L) Potassium 4.0 (Ref Range: 3.3-5.1 mmol/L) 3.9 (Ref Range: 3.3-5.1 mmol/L) 4.2 (Ref Range: 3.3-5.1 mmol/L) Chloride 107 (Ref Range: 96-108 mmol/L) 107 (Ref Range: 96-108 mmol/L) 106 (Ref Range: 96-108 mmol/L) Carbon Dioxide 25 (Ref Range: 22-29 mmol/L) 25 (Ref Range: 22-29 mmol/L) 25 (Ref Range: 22-29 mmol/L) Anion Gap 11 L (Ref Range: 12-20) 12 (Ref Range: 12-20) 11 L (Ref Range: 12-20) Blood Urea Nitrogen 16 (Ref Range: 9-16 mg/dL) 11 (Ref Range: 9-16 mg/dL) 15 (Ref Range: 9-16 mg/dL) Creatinine 0.72 (Ref Range: 0.5-1.4 mg/dL) 0.73 (Ref Range: 0.5-1.4 mg/dL) 0.79 (Ref Range: 0.5-1.4 mg/dL) Estimated Glomerular Filt Rate > 60 > 60 > 60 Glucose Fasting 212 H (Ref Range: 60-99 mg/dL) 254 H (Ref Range: 60-99 mg/dL) 239 H (Ref Range: 60-99 mg/dL) Calcium 10.7 H (Ref Range: 8.4-10.2 mg/dL) 10.8 H (Ref Range: 8.4-10.2 mg/dL) 10.9 H (Ref Range: 8.4-10.2 mg/dL) * Lab:Complete Blood Count Aut o Diff * Collection Date 12/25/2024 10/02/2024 10/03/2022 Collection Time 09:30 AM 09:44 AM 04:23 PM Order Date 12/25/2024 10/02/2024 10/03/2022 White Blood Count 7.7 (Ref Range: 4.8-10.8 X10*3/uL) 7.2 (Ref Range: 4.8-10.8 X10*3/uL) 12.1 H (Ref Range: 4.8-10.8 X10*3/uL) Red Blood Count 4.67 (Ref Range: 4.20-5.50 X10*6/uL) 4.51 (Ref Range: 4.20-5.50 X10*6/uL) 5.17 (Ref Range: 4.20-5.50 X10*6/uL) Hemoglobin 13.2 (Ref Range: 12.0-16.0 g/dl) 12.8 (Ref Range: 12.0-16.0 g/dl) 14.0 (Ref Range: 12.0-16.0 g/dl) Hematocrit 40.0 (Ref Range: 37.0-47.0 %) 38.5 (Ref Range: 37.0-47.0 %) 43.7 (Ref Range: 37.0-47.0 %) Mean Corpuscular Volume 85.7 (Ref Range: 80.0-98.0 fL) 85.4 (Ref Range: 80.0-98.0 fL) 84.5 (Ref Range: 80.0-98.0 fL) Mean Corpuscular Hemoglobin 28.3 (Ref Range: 27.0-33.0 pg) 28.4 (Ref Range: 27.0-33.0 pg) 27.1 (Ref Range: 27.0-33.0 pg) Mean Corpuscular HGB Conc 33.0 (Ref Range: 31.0-35.0 g/dl) 33.2 (Ref Range: 31.0-35.0 g/dl) 32.0 (Ref Range: 31.0-35.0 g/dl) Red Cell Distribution Width 12.9 (Ref Range: 11.0-16.0 %) 12.9 (Ref Range: 11.0-16.0 %) 12.9 (Ref Range: 11.0-16.0 %) Platelet Count 226 (Ref Range: 160-400 X10*3/uL) 232 (Ref Range: 160-400 X10*3/uL) 279 (Ref Range: 160-400 X10*3/uL) Mean Platelet Volume 11.3 (Ref Range: 9.4-12.3 fL) 11.7 (Ref Range: 9.4-12.3 fL) 11.8 (Ref Range: 9.4-12.3 fL) Neutrophils Percent Auto 48.3 (Ref Range: 45-73 %) 54.0 (Ref Range: 45-73 %) 64.4 (Ref Range: 45-73 %) Imm Gran Pct Auto 1.8 H (Ref Range: 0.0-0.4 %) 1.1 H (Ref Range: 0.0-0.4 %) 1.2 H (Ref Range: 0.0-0.4 %) Lymphocytes Percent Auto 38.2 (Ref Range: 20-40 %) 32.4 (Ref Range: 20-40 %) 24.9 (Ref Range: 20-40 %) Monocytes Percent Auto 7.5 (Ref Range: 2-11 %) 8.6 (Ref Range: 2-11 %) 7.5 (Ref Range: 2-11 %) Eosinophils Percent Auto 3.6 (Ref Range: 0-4 %) 3.5 (Ref Range: 0-4 %) 1.7 (Ref Range: 0-4 %) Basophils Percent Auto 0.6 (Ref Range: 0-2 %) 0.4 (Ref Range: 0-2 %) 0.3 (Ref Range: 0-2 %) NRBC Pct Auto 0.0 (Ref Range: 0.0-0.2 /100WBC) 0.0 (Ref Range: 0.0-0.2 /100WBC) 0.0 (Ref Range: 0.0-0.2 /100WBC) Neutrophils Absolute Auto 3.7 (Ref Range: 2.0-8.3 x10*3/uL) 3.9 (Ref Range: 2.0-8.3 x10*3/uL) 7.8 (Ref Range: 2.0-8.3 x10*3/uL) Imm Gran Abs Auto 0.14 H (Ref Range: 0.00-0.03 X10*3/uL) 0.08 H (Ref Range: 0.00-0.03 X10*3/uL) 0.15 H (Ref Range: 0.00-0.03 X10*3/uL) Lymphocytes Absolute Auto 3.0 (Ref Range: 1.2-4.9 X10*3/uL) 2.3 (Ref Range: 1.2-4.9 X10*3/uL) 3.0 (Ref Range: 1.2-4.9 X10*3/uL) Monocytes Absolute Auto 0.6 (Ref Range: 0.1-1.2 X10*3/uL) 0.6 (Ref Range: 0.1-1.2 X10*3/uL) 0.9 (Ref Range: 0.1-1.2 X10*3/uL) Eosinophils Absolute Auto 0.3 (Ref Range: 0.0-0.4 X10*3/uL) 0.3 (Ref Range: 0.0-0.4 X10*3/uL) 0.2 (Ref Range: 0.0-0.4 X10*3/uL) Basophils Absolute Auto 0.1 (Ref Range: 0.0-0.2 X10*3/uL) 0.0 (Ref Range: 0.0-0.2 X10*3/uL) 0.0 (Ref Range: 0.0-0.2 X10*3/uL) NRBC Abs Auto 0.000 (Ref Range: 0.0-0.012 X10*3/uL) 0.000 (Ref Range: 0.0-0.012 X10*3/uL) 0.000 (Ref Range: 0.0-0.012 X10*3/uL) * Lab:Hemoglobin A1c * Collection Date 12/25/2024 10/02/2024 04/13/2022 Collection Time 09:30 AM 09:44 AM 07:39 AM Order Date 12/25/2024 09/30/2024 04/13/2022 Hemoglobin A1c % 8.7 H (Ref Range: <6.0 %) 8.4 H (Ref Range: <6.0 %) 7.8 (Ref Range: %) Estimated Average Glucose 203 (Ref Range: mg/dL) 194 (Ref Range: mg/dL) 177 (Ref Range: mg/dL) Clinical Info: Please have this testing 1 week prior to your next appointment,Please fast for 12-14 hours prior to having this labwork done. You may have black coffee or tea with no milk or sugar. May have water,PLEASE FAX COMPLETED RESULTS TO [phone] Please have this testing done as soon as possible,Please fast for 12-14 hours prior to having this labwork done. You may have black coffee or tea with no milk or sugar. May have water,PLEASE FAX COMPLETED RESULTS TO [phone] * Lab:URINE DIP STICK * Collection Date 09/30/2024 01/21/2023 06/28/2020 Order Date 09/30/2024 01/21/2023 06/28/2020 Result: Normal SG 1.020 (Ref Range: 1.005 - 1.025) 1.025 1.015 pH 5.0 (Ref Range: 5.0 - 9.0) 5.0 5 EMMETT Negative (Ref Range: Negative -) neg neg NIT Negative (Ref Range: Negative -) neg neg PRO 15 (Ref Range: Negative - Trace) neg neg GLU 1000 (Ref Range: Negative -) high normal KET 5 (Ref Range: Negative -) neg neg UBG 0.2 (Ref Range: 0.1 - 1.8) normal normal KEEGAN Negative (Ref Range: 0.2 - 1.3) neg neg BLD Negative (Ref Range: Negative -) neg neg Menstrating NR N/A no * Examination: G eneral Examination: GENERAL APPEARANCE: p leasant, well nourished, well developed, in no acute distress, calm and relaxed, obese, woman. HEAD: a traumatic, normocephalic. EYES: e hannah, [...] sensory exam intact. PSYCH: a lert, oriented. Assessment: * Assessment: 1. N on insulin dependent diabetes mellitus with ophthalmic complication - E11.39 (Primary)? Notes :Her fasting glucose was 212. The hemoglobin A1c has increased recently from 7.8-8.4 and is now 8.7. We have discussed weight loss and diet today. We discussed nutrition. We discussed the dietary control of diabetes. We made a plan to lose weight at a rate of one half of a pound per week. I have added pioglitazone to her regimen. I offered to give her trulicity or Ozempic but she declined wishing to use injected medications. 2 . E ssential hypertension - I10 N otes :Her blood pressure is slightly high at 143/75. She does not wish to take additional blood pressure medication at this time. She says she is going to lose weight and restrict sodium. Follow-up appointment was given in the near future. 3 . O clifton (BMI 30.0-34.9) - E66.9 N otes :Her weight is stable from her last visit at 171 pounds. Her BMI is in the obese range. We made a plan today to lose weight at a rate of one half of a pound per week through regular physical activity and a diet restricted in fat calories and sodium. 4 . F ormer smoker - Z87.891 N otes :We have discussed a plan to prevent relapse in times of stress and illness. 5 . M ixed hyperlipidemia - E78.2 N otes :Her total cholesterol is 225. I discussed weight loss and diet with her today. I recommended a Mediterranean diabetic diet. We made plans to lose weight at a rate of one half of a pound per week. Her current medications were continued. 6 . A bnormal liver function test - R94.5 N otes :Her transaminase enzymes are rising again. They had been normalizing. This is likely due to uncontrolled diabetes which will be addressed.These values will be carefully observed. 7 . H ypercalcemia - E83.52 N otes :[facility]. Hyperparathyroidism is suspected. She will be referred to endocrinology. Plan: * Treatment: 2. E ssential hypertension L AB: PROFILE, FASTING (COMPREHENSIVE METABOLIC) L AB: CBC w DIFF L AB: Lipid Panel L AB: Hemoglobin A1c 3. O besity (BMI 30.0-34.9) L AB: PROFILE, FASTING (COMPREHENSIVE METABOLIC) L AB: CBC w DIFF L AB: Lipid Panel L AB: Hemoglobin A1c 4. O thers Continue glipiZIDE Tablet, 10 MG, 1 tablet, Orally, twice a day; C ontinue Lisinopril Tablet, 10 MG, TAKE 1 TABLET BY MOUTH EVERY DAY FOR 90 DAYS; C ontinue metFORMIN HCl Tablet, 500 MG, TAKE 2 TABLETS BY MOUTH TWICE A DAY WITH MEALS; C ontinue Simvastatin Tablet, 10 MG, TAKE 1 TABLET BY MOUTH EVERY DAY IN THE EVENING; C ontinue FreeStyle Lite Test Strip, -, -, In Vitro, test blood sugar twice a day; C ontinue FreeStyle Lancets Miscellaneous, -, test blood sugar twice a day;?Continue hydroCHLOROthiazide Tablet, 25 MG, 1 tablet in the morning, Orally, Once a day; S tart Pioglitazone HCl Tablet, 15 MG, 1 tablet, Orally, Once a day, 30 days, 30, Refills 11. ? * Procedure Codes: * Preventive Medicine: Counseling: C are goal [...] of tobacco use and urged to quit. 0 12/29/2024 DM Care Plan: P atient Lifestyle Goals P atient wants to be able to manage diabetes without too much effort. T reatment Goals B lood Sugars less than < 115, HbA1C < 7.0. B arriers n o barriers. S elf-Managment Goals W ork on weight loss, with a goal of losing 1 lb per week. * Follow Up: 3 Months (Reason: ov review labs) * Images: * Sign off status: Completed true * Provider: Sofia Treviño MD Date: 0 12/29/2024 Generated for Jordani gordon/Kadeem/eTransmitting on: 12/04/2024 07:21 AM EST History and Physical Notes * HPI (History of Present Illness) Category Sub-Category Detail Notes COVID-19 Screening Questions Have you had any new onset fever, chills, cough, congestion, sore throat, shortness of breath, muscle aches?: No Examination Category Sub-Category Detail Notes General Examination GENERAL APPEARANCE: pleasant , well nourished, well developed, in no acute distress, calm and relaxed, obese, woman HEAD: atraumatic, normocep halic EYES: eomi, perrla, [...]
--- OUTSIDE RECORDS SUMMARY | 2025-01-12 11:00 | XMS_ITS ---
Author Organization [facility] Address [address] [place] [address] Care Team Providers Care Trimming Inspector Name Role Phone Gerald Treviño MD Primary Care Provider Unavailab Gerald York Unavailable [phone] REASON FOR VISIT Patient presents today for a COLON SCREENING Encounters Encounter Location Date Provider Diagnosis [facility] [address] [place] [phone] 01/12/2025 Gerald Ospina Plan Of Treatment No Information Progress Notes * JOSE VERASDOB:[birth year] (65 yo F)Acc No.[id number]:01/12/2025 Progress Notes Patient: JOSE LAMAR Provider: Sofia Ospina MD :1960 A ge:64 Y S ex:Female Date:01/12/2025 Address:[address] [place] [address], [id number] Pcp:Gerald Treviño MD Subjective: * Chief Complaints: * 1 . Patient presents today for a COLON SCREENING. * Medical History: Objective: * Vitals: Assessment: Plan: * Treatment: * * The named appointment provid er may or may not be the originator of this progress note, and it is not deemed complete until electronically signed by the appointment provider. Sign off status: Pending * Provider: Sofia Ospina MD Date: 0 01/12/2025 Generated for Carrie leyva/Kadeem/Joseitting on: 12/04/2024 07:20 AM EST
--- OUTSIDE RECORDS SUMMARY | 2025-01-14 05:14 | XMS_ITS ---
Author Organization Gerald Treviño III, MD Address [address] [place] [address] [place] [address] Care Team Providers Care Cartographic Engineer Name Role Phone Dr. Gerald Treviño III Primary Care Provider [phone] REASON FOR VISIT Message Social History Sex Assigned At : Social History Observation Description Sex Assigned At Female Encounters Encounter Location Date Provider Diagnosis Gerald Treviño III, MD [address] [place] [address] [address] [facility] [place] [address] 01/14/2025 Gerald Treviño Plan Of Treatment Next Appt Details Provider Name:Gerald Treviño , 10/05/2025 09:30:00 AM, [address] [place] [address] [address], [place], [address], Progress Notes * Eve VERASDOB:[birth year] (64 yo F)Acc No.[id number]:01/14/2025 Patient: Pearl LAMARarita :1960 A ge:64 Y S ex:Female Address:[address], [address], [place], [address] * true * Date: Generated for Carrie leyva/Kadeem/eTransmitting on: 12/04/2024 07:20 AM EST
--- OUTSIDE RECORDS SUMMARY | 2025-03-30 12:00 | XMS_ITS ---
Author Organization Gerald Treviño III, MD Address [address] [place] [address] [address] [place] [address] Care Team Providers Care Pearl Maker Name Role Phone Dr. Gerald Treviño III Primary Care Provider [phone] Allergies Allergen (clinical drug ingredient) Drug/Non Drug [...] Date Provider Diagnosis Gerald Treviño III, MD [address] [place] [address] [address] [place] [address] 03/30/2025 Gerald Treviño Plan Of Treatment Medication [...] Provider Name:Gerald Treviño , 10/05/2025 09:30:00 AM, [address] [place] [address] DR, [place] [address], [place], [address], Progress Notes * Eve VERASDOB:[birth year] (65 yo F)Acc No.[id number]:[birth year]/30/2025 Progress Notes Patient: Pearl LAMARarita Provider: Sofia Treviño MD :1960 A ge:64 Y S ex:Female Date:03/30/2025 Address:[address] [place] [address], [address] [place], [id number] Subjective: * Chief Complaints: * 1 . [...] of right wrist, Hyperlipidemia, unspecified hyperlipidemia type, Xhd-efgtdka-peoamjyck diabetes mellitus, Multiple tubular adenomas of the colon, uterine fibroid and abnormal 1.1 cm uterine stripe pelvic ultrasound December 2016, biopsy was recommended, Obesity, Hyperlipidemia, Essential hypertension, Urinary incontinence, Former smoker, Diabetes. * Surgical History: c esarean section X2 , tubal ligation , colonoscopy, Dr. Ospina 01/2019, Uterus biopsy [facility] 10/2020, No history . * Hospitalization/Major Diagno [...] x-cigarette smoker S he was born in [place] and moved to [facility] when she was 8 years old. She was raised in [place]. She has 2 sons, Michael 34 years [...] relaxed. HEAD: a traumatic, normocephalic. EYES: e hannah, [...] Pending * Provider: Sofia Treviño MD Date: 03/30/2025 Generated for Carrie leyva/Kadeem/Joseitting on: 12/04/2024 07:20 AM EST History and [...]
--- OUTSIDE RECORDS SUMMARY | 2025-08-29 09:15 | XMS_ITS ---
Author Organization Gerald Treviño III, MD Address [address] [place] [address] [address] [place] [place] [address] Care Team Providers Care Regulatory Affairs Manager Name Role Phone Dr. Gerald Treviño III Primary Care Provider [phone] Allergies Allergen (clinical drug ingredient) Drug/Non Drug [...] Date Provider Diagnosis Gerald Treviño III, MD [address] [place] [address] [place] [address] 08/29/2025 Gerald Treviño Type 2 diabetes mellitus [...] son: Annual Exam Provider Name:Gerald Treviño , 10/05/2025 09:30:00 AM, [address] [place] [address] [place], [address], Progress Notes * Eve VERASDOB:[birth year] (64 yo F)Acc No.[id number]:08/29/2025 Progress Notes Patient: Eve LAMAR Provider: Sofia Treviño MD :1960 A ge:64 Y S ex:Female Date:08/29/2025 Address:[address] [place] [address], [facility], [place], [id number] Subjective: * Chief Complaints: * L eft knee painGout August 22, 2025 left kneeHypertensionDiabetesObesityHyperlipidemia * HPI: C OVID-19 Screening: On August 22, 2025 she developed severe pain in the left knee expectantly. This was without trauma. She went to the emergency room at [facility] where she was treated for gout. [...] tubal ligation colonoscopy, Dr. Ospina 01/2019Uterus biopsy [facility] [place] 10/2020No history * [...] smoker S he was born in [place] and moved to [facility] when she was 8 years old. She was raised in [place]. She has 2 sons, Michael 34 years [...] Treviño MD Date: 0 08/29/2025 Generated for Carrie leyva/Kadeem/Kun on: 1 12/04/2024 07:21 AM EST History and Physical [...]
--- OUTSIDE RECORDS SUMMARY | 2025-10-04 07:20 | XMS_ITS | Patient Health Record ---
Author Organization Gerald Treviño III, MD Address [address] [place] [address] [place] [address] Care Team Providers Care Tram Inspector Name Role Phone Dr. Gerald Treviño III Primary Care Provider [phone] Allergies Allergen (clinical drug ingredient) Drug/Non Drug Allergy documented on EMR Reaction Allergy Type Onset Date Status No Known Drug Allergy Unknown Drug Allergy Active Results Component Value Reference Range Notes Complete Blood Count Auto Di ff Reviewed date:12/26/2024 04:41:39 PM Interpretation: Performing Lab:[facility], [address] [place] [id number] Notes/Report: White Blood Count 7.7 4.8-10.8 X10*3/uL [...] NRBC Abs Auto 0.000 0.0-0.012 X10*3/uL Comprehensive [place]. Panel Fa st Reviewed date:12/26/2024 04:41:39 PM Interpretation: Performing Lab:[address] [address] Notes/Report: Sodium 139 135-145 mmol/L Potassium 4.0 [...] Panel Reviewed date:12/26/2024 04:41:39 PM Interpretation: Performing Lab:[address] [address] Notes/Report: Triglycerides 219 <150 mg/dL Desirable Triglyceride: [...] Random Reviewed date:12/26/2024 04:41:39 PM Interpretation: Performing Lab:[address] [address] Notes/Report: Creatinine Urine 125.69 Microalbumin Urine 30.0 Microalbum/Creatinine Ratio Ur 23.8 <30 ug/mg cr Albumin/Creatinine Ratio Reference Ranges: Normal: < 30 ug/mg creatinine Microalbuminuria: 30 - 300 ug/mg creatinine Clinical Albuminuria: > 300 ug/mg creatinine Hemoglobin A1c Reviewed date:12/26/2024 04:41:39 PM Interpretation: Performing Lab:[address] [address] Notes/Report: Hemoglobin A1c % 8.7 <6.0 % [...] average glucose, using the formula of the D5V-Smpxhbq Average Glucose study (ADAG), Diabetes Care, Vol.31,#8, Jul. 2007 XR knee LT 4V Reviewed date:06/01/2025 03:31:48 PM Interpretation: Performing Lab: Notes/Report: [address] [address] XRay Report Signed Patient: Eve Camara MR#: [id number] : 1960 Acct:[id number] Age/Sex: 64 / F ADM Date: 06/01/25 Loc: HO.ED Attending Dr: Ordering Physician: Hardeep Lee Date of Service: 06/01/25 Procedure(s): XR knee LT 4V Accession Number(s): [id number] cc: Gerald Treviño MD; Hardeep Lee EXAMINATION: [...] 06/01/25 1307 DD/ 1300 TD/TT: 06/01/25 1305 Server Support Technician: [place] [address] XRay Report Signed Patient: Eve Camara MR#: [id number] : 1960 Acct:[id number] Age/Sex: 64 / F ADM Date: 06/01/25 Loc: HO.ED Attending Dr: Ordering Physician: Hardeep Lee Date of Service: 06/01/25 Procedure(s): XR kne e LT 4V Accession Number(s): [id number] cc: Gerald Treviño MD; Hardeep Lee EXAMINATION: [...] 06/01/25 1307 DD/ 1300 TD/TT: 06/01/25 1305 Server Support Technician: Reason For Referral No Information Medications Medication SIG (Take, Route, Frequency, Duration) Notes Start Date End Date Status hydroCHLOROthiazide 25 MG 1 tablet in th e morning Orally Once a day Active Pioglitazone HCl 15 MG 1 tablet Orally Once a day 12/29/2024 Active Lisinopril 10 MG TAKE 1 TABLET BY JANICE TH EVERY DAY FOR 90 DAYS Active metFORMIN HCl 500 MG TAKE 2 TABLETS BY M OUTH TWICE A DAY WITH MEALS Active FreeStyle Lite Test - - In Vitro test bl ood sugar twice a day Active FreeStyle Lancets - test [...] Problem Status W/U Status Risk Notes Problem 3464102 Former smoker (Z87.891) Active confirmed We have discussed a plan to prevent relapse in times of stress and illness. Problem 039381878440056 Obesity (BMI 30.0-34.9) (E66.9) Active confirmed Her weight is stable from her last visit at 171 pounds. Her BMI is in the obese range. We made a plan today to lose weight at a rate of one half of a pound per week through regular physical activity and a diet restricted in fat calories and sodium. Problem 61515315 Intramural leiomyoma of uterus (D25.1) Active confirmed Problem 061974687 Mixed hyperlipidemia (E78.2) Active confirmed Her total cholesterol is 225. I discussed weight loss and diet with her today. I recommended a Mediterranean diabetic diet. We made plans to lose weight at a rate of one half of a pound per week. Her current medications were continued. Problem 23930137 Hypercalcemia (E83.52) Active confirmed A repeat set of labs with the calcium and uric acid has been ordered. Problem Endometrial hyperplasia (718319521) Endometrial hyperplasia, unspecified (N85.00) Active confirmed Problem Gout (12586401) Gout (M10.9) Active confirmed The acute episode has resolved. She was given a supply of prednisone to use for recurrences nights, weekends.If she has frequent episodes allopurinol will be considered. Problem 99680995 Essential hypertension (I10) Active confirmed Her blood pressure is slightly high at 143/75. She does not wish to take additional blood pressure medication at this time. She says she is going to lose weight and restrict sodium. Follow-up appointment was given in the near future. Problem 224178794616406 Carpal tunnel syndrome, right (G56.01) Active confirmed The pain in her wrist has improved and is not a significant problem today. She is more focused upon shoulder pain. Problem 49852259 Stress incontinence of urine (N39.3) Active confirmed He is occasionally incontinent. This problem has not worsened. We discussed a referral to urology, and she will consider it. Problem 554784631 Type 2 diabetes mellitus without complication, without long-term current use of insulin (E11.9) Active confirmed Problem 794370710 Adenomatous polyp of colon, unspecified part of colon (D12.6) Active confirmed She denies any recent dental pain or bleeding. She will be referred to GI at the appropriate time. 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 Problem 184155613 Abnormal liver function test (R94.5) Active confirmed Her transaminase enzymes are rising again. They had been normalizing. This is likely due to uncontrolled diabetes which will be addressed.Thes e values will be carefully observed. 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 E11.39 ; Obesity (BMI 30.0-34.9) E66.9 ; Former smoker Z87.891 ; Mixed hyperlipidemia E78.2 ; Abnormal liver function test R94.5 and Hypercalcemia E83.52 Gerald Treviño III, MD [address] [place] [address] [place] [address] 08/29/2025 Gerald Treviño Type 2 diabetes haydee itus without complication, without long-term current use of insulin E11.9 ; Gout M10.9 ; Hypercalcemia E83.52 ; Carpal tunnel syndrome, right G56.01 ; Essential hypertension I10 ; 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 08/29/2025 Gout (ICD-10 - M10.9) The acute episode has resolved. She was given a supply of prednisone to use for recurrences nights, weekends.If she has frequent episodes allopurinol will be considered. 08/29/2025 Type 2 diabetes mellitus without complication, without long-term current use of insulin (ICD-10 - E11.9) 12/29/2024 Obesity (BMI 30.0-34.9) (ICD-10 - E66.9) Her weight is stable from her last visit at 171 pounds. Her BMI is in the obese range. We made a plan today to lose weight at a rate of one half of a pound per week through regular physical activity and a diet restricted in fat calories and sodium. 08/29/2025 Hypercalcemia (ICD-10 - E83.52) A repeat set of labs with the calcium and uric acid has been ordered. 12/29/2024 Former smoker (ICD-10 - Z87.891) We have discussed a plan to prevent relapse in times of stress and illness. 08/29/2025 Carpal tunnel syndrome, right (ICD-10 - G56.01) The pain in her wrist has improved and is not a significant problem today. She is more focused upon shoulder pain. 12/29/2024 Mixed hyperlipidemia (ICD-10 - E78.2) Her total cholesterol is 225. I discussed weight loss and diet with her today. I recommended a Mediterranean diabetic diet. We made plans to lose weight at a rate of one half of a pound per week. Her current medications were continued. 08/29/2025 Essential hypertension (ICD-10 - I10) Her blood pressure is slightly high at 143/75. She does not wish to take additional blood pressure medication at this time. She says she is going to lose weight and restrict sodium. Follow-up appointment was given in the near future. 12/29/2024 Abnormal liver function test (ICD-10 - R94.5) Her transaminase enzymes are rising again. They had been normalizing. This is likely due to uncontrolled diabetes which will be addressed.These values will be carefully observed. 08/29/2025 Non insulin dependent diabetes mellitus with [...] declined wishing to use injected medications. 12/29/2024 Hypercalcemia (ICD-10 - E83.52) [facility]. Hyperparathyroidism is suspected. She will be referred to endocrinology. 08/29/2025 Obesity (BMI 30.0-34.9) (ICD-10 - E66.9) [...] Order Date PROFILE, FASTING (COMPREHENSIVE METABOLI C) 04/16/2022 PROFILE, FASTING (COMPREHENSIVE METABOLI C) 12/29/2024 PROFILE, FASTING (COMPREHENSIVE METABOLI C) 01/21/2023 PROFILE, FASTING (COMPREHENSIVE METABOLI C) 10/09/2022 HEMOGLOBIN A1C (GLYCOHEMOGLOBIN) 023 HEMOGLOBIN A1C (GLYCOHEMOGLOBIN) 022 HEMOGLOBIN A1C (GLYCOHEMOGLOBIN) 022 URIC ACID 10/09/2022 LIPID PANEL 01/21/2023 LIPID PANEL 10/09/2022 MICROALBUMIN, RANDOM 01/21/2023 CBC w DIFF 12/29/2024 CBC w DIFF 04/16/2022 CBC w DIFF 01/21/2023 CBC w DIFF 10/09/2022 Uric Acid 08/29/2025 Lipid Panel 12/29/2024 Lipid Panel 04/16/2022 Microalbumin, Random 08/29/2025 Hemoglobin A1c 12/29/2024 Next Appt Details Provider Name:Gerald Treviño , 10/05/2025 09:30:00 AM, [address] [place] [address] , [facility] [place], [place], [address], Insurance Providers Payer Name Payer Address Payer Phone Subscriber Number Group Number Insured Name Patient Relationship to Insured Coverage Start Date Coverage End Date [employer] [place] [address] [place] [id number] Eve Camara Self - patient is the insured Medical (General) History Medical History History ICD Code Carpal tunnel syndrome of right wrist G5 6.01 Hyperlipidemia, unspecified hyperlipidem ia type E78.5 xky-tivpekk-bqzdaqkus diabetes mellitus multiple tubular adenomas of the colon uterine fibroid and abnormal 1.1 cm uterine stripe pelvic ultrasound December 2016, biopsy was recommended obesity hyperlipidemia essential hypertension urinary incontinence former smoker Diabetes Surgical History Surgery Date(Month/Year) No history Uterus biopsy [facility] [place] 10/2020 colonoscopy, Dr. Ospina 01/2019 tubal ligation section X2 Hospitalization History Reason Date(Month/Year) No history
--- OUTSIDE RECORDS SUMMARY | 2025-10-04 07:20 | XMS_ITS | Patient Health Record ---
Author Organization [facility] Address [address] [place] [address] Care Team Providers Care Engineering Consultant Name Role Phone Gerald Treviño MD Primary Care Provider Unavailab Gerald York Unavailable [phone] Reason For Referral No Information Medications Medication SIG (Take, Route, Frequency, Duration) Notes Start Date End Date Status Dulcolax (colon prep) 5 MG take at 3:00 p.m and 7:00p.m. Orally two tablets twice a day for one day; Duration: 1 day 12/17/2018 Active Simvastatin 10 MG 1 tablet in the evening Orally Once a day; Duration: 30 day(s) Active MiraLax (colon prep) 8.3 oun ce ((238) grams mixed with Gatorade or Crystal Light orally begin at 5:00 p.m. the day before the procedure; Duration: 1 day 12/17/2018 Active hydroCHLOROthiazide 25 MG 1 tablet Orall y Once a day Active glipiZIDE 5 MG 1 tablet Orally twic e a day Active metFORMIN HCl 500 MG 1 tablet with a roberto l Orally twice a day Active Lisinopril 10 MG 1 tablet Orally Once a day; Duration: 30 day(s) Active Immunizations Vaccine Route Administration [...] Problem Status W/U Status Risk Notes Problem Screening for malignant neoplasm of colon (480984662) Encounter for screening for malignant neoplasm of colon (Z12.11) Active confirmed Problem History of adenomatous polyp of colon (339875966) Hx of adenomatous colonic polyps (Z86.010) Active confirmed Problem Pre-procedure evaluation check (770730922) Pre-procedural examination (Z01.818) Active confirmed Encounters Encounter Location Date Provider Diagnosis [facility] [address] [place] [address] 01/12/2025 Gerald Ospina Plan Of Treatment Future Test Test Name Order Date COLONOSCOPY 05/11/2013 COLONOSCOPY 12/16/2018 Insurance Providers Payer Name Payer Address Payer Phone Subscriber Number Group Number Insured Name Patient Relationship to Insured Coverage Start Date Coverage End Date [facility] [address] [place] [address] [id number] JOSE VERAS Self - patient is the insured Medical (General) History Medical History History ICD Code Colonoscopy 01/2010 and 3 with me--diverticulosis and internal hemorrhoids--no polyps Multiple tubular adenomas re moved by Dr. Poe in 12/2005---1 was > 3 cm; F/U colon in 03/2006 with only 1 small tubular adenoma Hyperlipidemia-on no meds at present delisa e HTN Denies [place],CVA,Lung disease,renal disease NIDDM Surgical History Surgery Date(Month/Year) 2 C-sections BTL
[2025-10-04 07:46] LABS: MANUAL DIFF FLAG NO
[2025-10-04 08:27] LABS: Hematocrit 40.0 % (37.0-47.0); Hemoglobin 13.0 g/dl (12.0-16.0); Imm Gran Abs Auto 0.10 X10*3/uL (0.00-0.03); Imm Gran Pct Auto 1.3 % (0.0-0.4); Lymphocytes Absolute Auto 3.0 X10*3/uL (1.2-4.9); Mean Corpuscular HGB Conc 32.5 g/dl (31.0-35.0); Mean Corpuscular Hemoglobin 28.0 pg (27.0-33.0); Mean Corpuscular Volume 86.0 fL (80.0-98.0); NRBC Abs Auto 0.000 X10*3/uL (0.0-0.012); NRBC Pct Auto 0.0 /100WBC (0.0-0.2); Platelet Count 254 X10*3/uL (160-400); Red Blood Count 4.65 X10*6/uL (4.20-5.50); White Blood Count 7.5 X10*3/uL (4.8-10.8)
[2025-10-04 08:55] LABS: Alanine Aminotransferase 55 U/L (0-31); Albumin Level 4.5 g/dL (3.5-5.0); Alkaline Phosphatase 120 U/L (39-117); Anion Gap 10 (12-20); Aspartate Amino Transferase 33 U/L (5-31); Blood Urea Nitrogen 16 mg/dL (9-16); Calcium 10.3 mg/dL (8.4-10.2); Carbon Dioxide 27 mmol/L (22-29); Chloride 104 mmol/L (96-108); Cholesterol 280 mg/dL (<200); Estimated Glomerular Filt Rate > 60; HDL Cholesterol 41 mg/dL (>40); Potassium 4.2 mmol/L (3.3-5.1); Sodium 137 mmol/L (135-145); Total Protein 6.8 g/dL (6.5-8.0); Triglycerides 283 mg/dL (<150); Uric Acid 7.9 mg/dL (2.4-5.7)
[2025-10-04 09:01] LABS: Microalbum/Creatinine Ratio Ur 12.8 ug/mg cr (<30)
== END 2025-10-04 07:19 | disposition home or self-care (01) ==
LOC: HO.LAB 07:18
PROVIDERS: PCP Internal Medicine Medical Oncology; Visit Provider Internal Medicine Medical Oncology
DX: I10 Essential (primary) hypertension (principal); E11.39 Type 2 diabetes mellitus with other diabetic ophthalmic complication; E66.9 Obesity, unspecified
CPT/HCPCS: 36415; 80053; 80061; 82043; 82570; 83036; 84550; 85025

== ENCOUNTER 2025-10-05 13:10 | Outpatient (REF) | payer MEDICAID, SELFPAY ==
--- OUTSIDE RECORDS SUMMARY | 2024-04-07 12:30 | XMS_ITS ---
Author Organization Gerald Treviño III, MD Address [address] [place] [address] [place] [address] Care Team Providers Care Tire Specialist Name Role Phone Dr. Gerald Treviño III Primary Care Provider [phone] REASON FOR VISIT Annual Exam Social History Sex Assigned At : Social History Observation Description Sex Assigned At Female Encounters Encounter Location Date Provider Diagnosis Gerald Treviño III, MD [address] [place] [address] [place] [address] 04/07/2024 Gerald Treviño Plan Of Treatment Next Appt Details Provider Name:Gerald Treviño , 01/06/2026 03:45:00 PM, [address] [place] [address] [place], [address], Provider Name:Gerald Treviño , 10/09/2026 03:30:00 PM, [address] [place] [address] [place], [address], Progress Notes * Eve VERASDOB:[birth year] (65 yo F)Acc No.[id number]:04/07/2024 Progress Notes Patient: Eve LAMAR Provider: Sofia Treviño MD :1960 A ge:63 Y S ex:Female Date:04/07/2024 Address:[address], [address], [id number] Subjective: * Chief Complaints: * 1 . [...] 04/07/2024 Generated for Carrie leyva/Kadeem/Kun on: 1 12/05/2024 03:59 PM EST
--- OUTSIDE RECORDS SUMMARY | 2024-09-27 11:34 | XMS_ITS ---
Author Organization Gerald Treviño III, MD Address [address] [place] [address] [place] [address] Care Team Providers Care Cook Tortilla Name Role Phone Dr. Gerald Treviño III Primary Care Provider Medications Medication SIG (Take, Route, Frequency, Duration) Notes Start Date End Date Status hydroCHLOROthiazide 25 MG 1 tablet Orall y Once a day for 90 days 09/27/2024 09/22/2025 Active Social History Sex Assigned At : Social History Observation Description Sex Assigned At Female Encounters Encounter Location Date Provider Diagnosis Gerald Treviño III, MD [address] [place] [address] [place] [address] 09/27/2024 Gerald Treviño Plan Of Treatment Medication Medication Name Sig Start Date Stop Date Notes hydroCHLOROthiazide 25 MG 1 tablet Orall y Once a day for 90 days 09/27/2024 09/22/2025 Next Appt Details Provider Name:Gerald Treviño , 01/06/2026 03:45:00 PM, [address] [place] [address] [place], [address], Provider Name:Gerald Treviño , 10/09/2026 03:30:00 PM, [address] [place] [address] [place], [address], Progress Notes * Eve VERASDOB:[birth year] (64 yo F)Acc No.[id number]:09/27/2024 Patient: Frantz LASSITEREve :1960 A ge:64 Y S ex:Female Address:[address] [place] [address], [address], [place], [address] * Refills Start hydroCHLOROthiazide Tablet, 25 MG, Orally, 90 Tablet, 1 tablet, Once a day, 90 days, Refills=3 * true * Date: Generated for Carrie leyva/Kadeem/Kun on: 12/05/2024 04:01 PM EST
--- OUTSIDE RECORDS SUMMARY | 2024-09-30 04:00 | XMS_ITS ---
Author Organization Gerald Treviño III, MD Address [address] [place] [address] Care Team Providers Care Edge Stainer Name Role Phone Dr. Gerald Treviño III Primary Care Provider Allergies Allergen (clinical drug ingredient) Drug/Non Drug [...] Panel Reviewed date:11/26/2024 04:15:45 PM Interpretation: Performing Lab:[facility], [address] [place] [phone] Notes/Report: Triglycerides 225 <150 mg/dL Desirable Triglyceride: [...] A1c Reviewed date:11/26/2024 04:15:45 PM Interpretation: Performing Lab:[facility], [address] [place] [phone] Notes/Report: Hemoglobin A1c % 8.4 <6.0 % [...] average glucose, using the formula of the J3O-Wpymjkj Average Glucose study (ADAG), Diabetes Care, Vol.31,#8, [...] Referring Provider Speciality Internal edicine Referred Organization [facility] nter Referred Provider [facility] er, REGIONAL TELECOMMUNICATIONS SPECIALIST & Midwifery Referred Address [address] [place] [address],[place], [place],[id number], Referred Provider Specialty OB - Gynecol ogy [...] Date Provider Diagnosis Gerald Treviño III, MD [address] [place] [address] DR [place], [place] [address] 09/30/2024 Gerald Treviño Obesity (BMI 30.0-34 .9) E66.9 ; Type 2 diabetes mellitus with complication, unspecified whether intermediate accountant insulin use E11.8 ; Mixed hyperlipidemia E78.2 [...] 2 diabetes mellitus with complication, unspecified whether intermediate accountant insulin use (ICD-10 - E11.8) I have [...] Date Details 09/30/2024 09/30/2024, 5 year c olonoscopy, Gerald Bhavesh 09/30/2024 09/30/2024, chuckie cantrell, REGIONAL TELECOMMUNICATIONS SPECIALIST & Midwifery [facility], [address] [place] [address], [place], [place], [phone], Next Appt Details Follow Up: 3 Months, In thre e months, Reason: ov review labs, Follow-up Provider Name:Gerald Treviño , 01/06/2026 03:45:00 PM, [address] [place] [address] [address], [place], [phone], Provider Name:Gerald Grady Hudson , 10/09/2026 03:30:00 PM, [address] [place] [address] [address], [place], [address], Progress Notes * Eve VERASDOB:[birth year] (64 yo F)Acc No.[id number]:09/30/2024 Progress Notes Patient: Frantz CARLSONSalinaPearlEve Provider: Sofia Treviño MD :1960 A ge:64 Y S ex:Female Date:09/30/2024 Address:[address] [place] [id number] Subjective: * Chief Complaints: * A nnual [...] tubal ligation colonoscopy, Dr. Ospina 01/2019Uterus biopsy [facility] 10/2020No history * Hospitalization/Major Diagno stic Procedure: [...] N egative S he was born in [place] and moved to [facility] when she was 8 years old. She was raised in [place]. She has 2 sons, Michael 34 years old and juan jose 30 years old, who are alive and [...] 2 diabetes mellitus with complication, unspecified whether longterm insulin use - E11.8 (Primary) N otes :I have ordered a hemoglobin A1c and microalbumin and fasting glucose. This will be done in near future. 2 . O besity (BMI 30.0-34.9) - E66.9 N otes :She [...] To:Gerald Ospina??Gastroenterology ?Reason:5 year colonoscopy ? Referral To:[facility]??OB - Gynecology ?Reason:incontience * Immunizations: Influenza Vaccine Afluria : 0.5 mL (Dose No:1) (Route: Intramuscular) given by Neha WATKINS P on Left Arm (Encounter for immunization) ???Immunization [...] - * Procedure Codes: 8 1002 URINE-NO [id number] VAC NO PRSV 0.5 ML [id number] FLU VACC 4 HAIDER 3 YRS PLUS [...] Sofia Treviño MD Date: Generated for Carrie leyva/Kadeem/Kun on: 12/05/2024 04:00 PM EST History and Physical Notes * HPI [...] 5 year colono scopy 09/30/2024 Gerald Treviño [facility], REGIONAL TELECOMMUNICATIONS SPECIALIST & Midwifery incontience
--- OUTSIDE RECORDS SUMMARY | 2024-11-26 11:13 | XMS_ITS ---
Author Organization Gerald Treviño III, MD Address [address] [place] [address] [place] [address] Care Team Providers Care Test Driver Name Role Phone Dr. Gerald Treviño III Primary Care Provider [phone] Medications Medication SIG (Take, Route, Fr equency, Duration) Notes Start Date End Date Status glipiZIDE 10 MG 1 tablet Orally twic e a day for 30 days 11/26/2024 Active Social History Sex Assigned At : Social History Observation Description Sex Assigned At Female Encounters Encounter Location Date Provider Diagnosis Gerald Treviño III, MD [address] [place] [address] [place] [address] 11/26/2024 Gerald Treviño Plan Of Treatment Medication Medication Name Sig Start Date Stop Date Notes glipiZIDE 10 MG 1 tablet Orally twice a day for 30 days Next Appt Details Provider Name:Gerald Treviño , 01/06/2026 03:45:00 PM, [address] [place] [address] [place], [address], Provider Name:Gerald Treviño , 10/09/2026 03:30:00 PM, [address] [place] [address] [place], [address], Progress Notes * Eve VERASDOKervin:[birth year] (64 yo F)Acc No.[id number]:11/26/2024 Patient: Pearl LAMARarita :1960 A ge:64 Y S ex:Female Address:[address], [address], [place], [address] * Refills Start glipiZIDE Tablet, 10 MG, Orally, 60 Tablet, 1 tablet, twice a day, 30 days, Refills=11 * true * Date: Generated for Carrie leyva/Kadeem/Kun on: 12/05/2024 04:00 PM EST
--- OUTSIDE RECORDS SUMMARY | 2024-12-29 10:30 | XMS_ITS ---
Author Organization Gerald Treviño III, MD Address [address] [place] [address] [address] [place] [address] Care Team Providers Care Pasteurizing Supervisor Name Role Phone Dr. Gerald Treviño III Primary Care Provider [phone] Allergies Allergen (clinical drug ingredient) Drug/Non Drug [...] Problem Status W/U Status Risk Notes Problem [id number] Abnormal liver function test (R94.5) Active confirmed [...] Date Provider Diagnosis Gerald Treviño III, MD [address] [place] [address] [place] [address] 12/29/2024 Gerald Treviño Essential hypertensi on I10 [...] observed. 12/29/2024 Hypercalcemia (ICD-10 - E83.52) The [facility] calcium level is 10.7. Hyperparathyroidism is [...] ov review labs Provider Name:Gerald Treviño , 01/06/2026 03:45:00 PM, [address] [facility] [address], [place], [address], Provider Name:Gerald Treviño , 10/09/2026 03:30:00 PM, [address] [place] [address] [address], [place], [address], Progress Notes * Eve VERASDOB:[birth year] (64 yo F)Acc No.[id number]:12/29/2024 Progress Notes Patient: Eve LAMAR Provider: Sofia Treviño MD :1960 A ge:64 Y S ex:Female Date:12/29/2024 Address:[address] [place] [address], [address], [id number] Subjective: * Chief Complaints: * H ypertensionDiabetesObesityHyperlipidemiaStress [...] tubal ligation colonoscopy, Dr. Ospina 01/2019Uterus [place] [facility] [place]No history * Hospitalization/Major Diagno stic Procedure: [...] x-cigarette smoker S he was born in [place] and moved to [facility] when she was 8 years old. She was raised in [place]. She has 2 sons, Michael 34 years [...] May have water,PLEASE FAX COMPLETED RESULTS TO [phone] Please have this testing done as soon as possible,Please fast for 12-14 hours prior to having this labwork done. You may have black coffee or tea with no milk or sugar. May have water,PLEASE FAX COMPLETED RESULTS TO [phone] * Lab:[facility]lee Rebollar l Fast * Collection Date 12/25/2024 10/02/2024 04/13/2022 [...] May have water,PLEASE FAX COMPLETED RESULTS TO [phone] Please have this testing done as soon as possible,Please fast for 12-14 hours prior to having this labwork done. You may have black coffee or tea with no milk or sugar. May have water,PLEASE FAX COMPLETED RESULTS TO [phone] * Lab:URINE DIP STICK * Collection Date [...] in the near future. 3 . O besity (BMI 30.0-34.9) - E66.9 N otes :Her [...] H ypercalcemia - E83.52 N otes :[facility]. Hyperparathyroidism is suspected. [...] true * Provider: Sofia Treviño MD Date: 12/29/2024 Generated for Carrei leyva/Kadeem/Joseitting on: 12/05/2024 04:01 PM EST History and Physical Notes * [...]
--- OUTSIDE RECORDS SUMMARY | 2025-01-12 11:00 | XMS_ITS ---
Author Organization [facility] Address [address] [place] [address] Care Team Providers Care Explosive Technician Name Role Phone Gerald Treviño MD Primary Care Provider Unavailab Gerald York Unavailable [phone] REASON FOR VISIT Patient presents today for a COLON SCREENING Encounters Encounter Location Date Provider Diagnosis [facility] [address] [place] [phone] 01/12/2025 Gerald Ospina Plan Of Treatment No Information Progress Notes * CHARLEY VERASSORAYABOUCHRADOB:[birth year] (65 yo F)Acc No.[id number]:01/12/2025 Progress Notes Patient: JOSE LAMAR Provider: Sofia Ospina MD :1960 A ge:64 Y S ex:Female Date:01/12/2025 Address:[address] [place] [address], [id number] Pcp:Gerald Treviño MD Subjective: * Chief Complaints: [...] MD Date: 0 01/12/2025 Generated for Carrie leyva/Kadeem/Renasmitting on: 12/05/2024 04:00 PM EST
--- OUTSIDE RECORDS SUMMARY | 2025-01-14 05:14 | XMS_ITS ---
Author Organization Gerald Treviño III, MD Address [address] [place] [address] [place] [address] Care Team Providers Care Early Childhood Director Name Role Phone Dr. Gerald Treviño III Primary Care Provider [phone] REASON FOR VISIT Message Social History Sex Assigned At : Social History Observation Description Sex Assigned At Female Encounters Encounter Location Date Provider Diagnosis Gerald Treviño III, MD [address] [place] [address] [place] [address] 01/14/2025 Gerald Treviño Plan Of Treatment Next Appt Details Provider Name:Gerald Treviño , 01/06/2026 03:45:00 PM, [address] [place] [address] [place], [address], Provider Name:Gerald Treviño , 10/09/2026 03:30:00 PM, [address] [place] [address] [place], [address], Progress Notes * Eve VERASDOB:[birth year] (64 yo F)Acc No.[id number]:01/14/2025 Patient: Aleks LAMARta :1960 A ge:64 Y S ex:Female Address:[address], [address], [place], [address] * true * Date: Generated for Jordani gordon/Josianeg/eTransmitting on: 12/05/2024 04:01 PM EST
--- OUTSIDE RECORDS SUMMARY | 2025-03-30 12:00 | XMS_ITS ---
Author Organization Gerald Treviño III, MD Address [address] [place] [address] [address] [place] [address] Care Team Providers Care Core Analysis Operator Name Role Phone Dr. Gerald Treviño III Primary Care Provider Allergies Allergen (clinical drug ingredient) Drug/Non Drug Allergy documented on EMR Reaction Allergy Type Onset Date Status No Known Drug Allergy Unknown Drug Allergy Active REASON FOR VISIT follow up Medications Medication SIG (Take, Route, Frequency, Duration) Notes Start Date End Date Status Pioglitazone HCl 15 MG 1 tablet Orally Once a day 12/29/2024 Active hydroCHLOROthiazide 25 MG 1 tablet in th e morning Orally Once a day Active FreeStyle Lancets - test blood sugar twi ce a day Active Simvastatin 10 MG TAKE 1 TABLET BY JANICE TH EVERY DAY Orally Once a day Active glipiZIDE 10 MG 1 tablet Orally twic e a day 11/26/2024 Active FreeStyle Lite Test - - In Vitro test bl ood sugar twice a day Active metFORMIN HCl 500 MG TAKE 2 TABLETS BY M OUTH TWICE A DAY WITH MEALS Active Lisinopril 10 MG TAKE 1 TABLET BY JANICE TH EVERY DAY FOR 90 DAYS Active Social History Tobacco Use: Social History [...] Additional Findings: Tobacco non-user Ex-cigaret te smoker Encounters Encounter Location Date Provider Diagnosis Gerald Treviño III, MD [address] [place] [address] [address] [place] [address] 03/30/2025 Gerald Treviño Plan Of Treatment Medication Medication Name Sig Start Date Stop Date Notes Pioglitazone HCl 15 MG 1 tablet Orally Once a day 12/29/19 25 hydroCHLOROthiazide 25 MG 1 tablet in th e morning Orally Once a day FreeStyle Lancets - test blood sugar twice a day Simvastatin 10 MG TAKE 1 TABLET BY JANICE TH EVERY DAY Orally Once a day glipiZIDE 10 MG 1 tablet Orally twice a day 11/26/2024 FreeStyle Lite Test - - In Vitro test bl ood sugar twice a day metFORMIN HCl 500 MG TAKE 2 TABLETS BY M OUTH TWICE A DAY WITH MEALS Lisinopril 10 MG TAKE 1 TABLET BY JANICE TH EVERY DAY FOR 90 DAYS Next Appt Details Provider Name:Gerald Treviño , 01/06/2026 03:45:00 PM, [address] [place] [address] [address], [place], [address], Provider Name:Gerald Treviño , 10/09/2026 03:30:00 PM, [address] [place] [address] [address], [place], [address], Progress Notes * Eve VERASDOB:[birth year] (65 yo F)Acc No.[id number]:03/30/2025 Progress Notes Patient: Pearl LAMARarita Provider: Sofia Treviño MD :1960 A ge:64 Y S ex:Female Date:03/30/2025 Address:[address] [place] [address], [address] [id number] Subjective: * Chief Complaints: * 1 . Follow up. * HPI: C OVID-19 Screening: Questions H ave you had any new onset fever, chills, cough, congestion, sore throat, shortness of breath, muscle aches? N o * ROS: G eneral/Constitutional: pain o nly normal aches and pains. C hills d enies.?Fatigue a dmits. F ever d enies. E NT: Decreased hearing d enies. R espiratory: Cough d enies. C ardiovascular: Chest pain with exertion d enies. D yspnea on exertion?denies. S hortness of breath d enies. G astrointestinal: Constipation d enies. D ecreased appetite d enies.?Diarrhea d enies. H eartburn d enies. N ausea d enies. R ectal bleeding?denies. V omiting d enies. H ematology: bruising d enies. p etechiae d enies. S wollen glands n one have been noted. G enitourinary: Frequent urination d enies. M usculoskeletal: Muscle aches d enies. P ainful joints d enies. S ciatica d enies. W eakness d enies. S kin: Itching d enies. R rafael d enies. S kin lesion(s)?denies. N eurologic: Difficulty speaking d enies. D izziness d enies.?Headache d enies. L ow back pain d enies. P sychiatric: Depressed mood d enies. * Medical History: C arpal tunnel syndrome of right wrist, Hyperlipidemia, unspecified hyperlipidemia type, Nti-zqcmbhc-wwfwafukv diabetes mellitus, Multiple tubular adenomas of the colon, uterine fibroid and abnormal 1.1 cm uterine stripe pelvic ultrasound December 2016, biopsy was recommended, Obesity, Hyperlipidemia, Essential hypertension, Urinary incontinence, Former smoker, Diabetes. * Surgical History: c esarean section X2 , tubal ligation , colonoscopy, Dr. Ospina 01/2019, Uterus biopsy [facility] 10/2020, No history . * Hospitalization/Major Diagno stic Procedure: N o history . * Family History: F ather: 73 yrs, [...] x-cigarette smoker S he was born in [place] and moved to [facility] when she was 8 years old. She was raised in [place]. She has 2 sons, Michael 34 years old and juan jose 30 years old, who are alive and well. She has no grandchildren. * Medications: T aking glipiZIDE 10 MG Tablet 1 tablet Orally twice a day , Taking Lisinopril 10 MG Tablet TAKE 1 TABLET BY MOUTH EVERY DAY FOR 90 DAYS , Taking metFORMIN HCl 500 MG Tablet TAKE 2 TABLETS BY MOUTH TWICE A DAY WITH MEALS , Taking FreeStyle Lite Test - Strip - In Vitro test blood sugar twice a day , Taking FreeStyle Lancets - Miscellaneous test blood sugar twice a day , Taking hydroCHLOROthiazide 25 MG Tablet 1 tablet in the morning Orally Once a day , Taking Pioglitazone HCl 15 MG Tablet 1 tablet Orally Once a day , Taking Simvastatin 10 MG Tablet TAKE 1 TABLET BY MOUTH EVERY DAY Orally Once a day , Medication List reviewed and reconciled with the patient * Allergies: N o Known Drug Allergy. Objective: * Vitals: * Examination: G eneral Examination: GENERAL APPEARANCE: p leasant, well nourished, well developed, in no acute distress, calm and relaxed. HEAD: a traumatic, normocephalic. EYES: e hannha, perrla, anicteric, conjugate. EARS: n ormal. NOSE: [...] LUNGS: c lear to auscultation . BREASTS: no masses palpable bilaterally. ABDOMEN: b owel sounds normal, no ascites, no organomegaly, no mass. RECTAL EXAM: n ot examined. MUSCULOSKELETAL: e xtremities unremarkable, no clubbing, cyanosis or edema. PERIPHERAL PULSES: n ormal. NEUROLOGIC: a lert and oriented, cranial nerves 2-12 grossly intact, deep tendon reflexes 2+ symmetrical, motor strength normal upper and lower extremities, sensory exam intact. PSYCH: a lert, oriented. Assessment: Plan: * Treatment: * Images: * The named appointment provid er may or may not be the originator of this progress note, and it is not deemed complete until electronically signed by the appointment provider. Sign off status: Pending * Provider: Sofia Treviño MD Date: 0 03/30/2025 Generated for Carrie leyva/Kadeem/Carolsransmitting on: 12/05/2024 04:01 PM EST History and Physical Notes * HPI (History of Present Illness) Category Sub-Category Detail Notes COVID-19 Screening Questions Have you had any new onset fever, chills, cough, congestion, sore throat, shortness of breath, muscle aches?: No Examination Category Sub-Category Detail Notes General Examination GENERAL APPEARANCE: pleasant , well nourished, well developed, in no acute distress, calm and relaxed HEAD: atraumatic, normocep halic EYES: eomi, perrla, anicte santos, conjugate EARS: normal NOSE: septum intact NECK/THYROID: no jugular venous di stention, no carotid bruit, thyroid normal HEART: no clicks, gallops, murmurs, or rubs, regular rhythm, S1, S2 normal, no s3, or vascular bruits LUNGS: clear to auscultatio n ABDOMEN: bowel sounds normal, no ascites, no organomegaly, no mass NEUROLOGIC: alert and oriented, cranial nerves 2-12 grossly intact, deep tendon reflexes 2+ symmetrical, motor strength normal upper and lower extremities, sensory exam intact SKIN: no suspicious lesion s, anicteric PERIPHERAL PULSES: normal BREASTS: no masses palpable b ilaterally MUSCULOSKELETAL: extremities unremark able, no clubbing, cyanosis or edema LYMPH NODES: no enlarged lymph no viv,spleen normal RECTAL EXAM: not examined PSYCH: alert, oriented ORAL CAVITY: normal, unremarkable
--- OUTSIDE RECORDS SUMMARY | 2025-08-29 09:15 | XMS_ITS ---
Author Organization Gerald Treviño III, MD Address [address] [place] [address] [address] [place] [address] Care Team Providers Care Master Control Supervisor Name Role Phone Dr. Gerald Treviño III Primary Care Provider [phone] Allergies Allergen (clinical drug ingredient) Drug/Non Drug Allergy documented on EMR Reaction Allergy Type Onset Date Status No Known Drug Allergy Unknown Drug Allergy Active REASON FOR VISIT Left knee pain, Gout August 22, 2025 left knee, Hypertension, Diabetes, Obesity, Hyperlipidemia Medications Medication SIG (Take, Route, Frequency, Duration) Notes Start Date End Date Status hydroCHLOROthiazide 25 MG 1 tablet in th e morning Orally Once a day Active Pioglitazone HCl 15 MG 1 tablet Orally O nce a day 12/29/2024 Active FreeStyle Lite Test - - In Vitro test bl ood sugar twice a day Active predniSONE 20 MG 2 tablets with food or milk Orally Once a day for 3 days 08/29/2025 10/03/2025 Active FreeStyle Lancets - test blood sugar twi ce a day Active Lisinopril 10 MG TAKE 1 TABLET BY JANICE TH EVERY DAY FOR 90 DAYS Active metFORMIN HCl 500 MG TAKE 2 TABLETS BY M OUTH TWICE A DAY WITH MEALS Active Simvastatin 10 MG TAKE 1 TABLET BY JANICE TH EVERY DAY Orally Once a day Active glipiZIDE 10 MG 1 tablet Orally twic e a day 11/26/2024 Active Social History Tobacco Use: Social History [...] Additional Findings: Tobacco non-user Ex-cigaret te smoker Vital Signs Temperature 97.7 degrees Fahrenheit 08/29/20 25 Blood pressure systolic 127 mm Hg 08/29/20 25 Blood pressure diastolic 68 mm Hg 025 Heart Rate 76 /min 08/29/2025 Height 61 in 08/29/2025 Weight 174 lbs 08/29/2025 BMI 32.87 kg/m2 08/29/2025 Encounters Encounter Location Date Provider Diagnosis Gerald Treviño III, MD [address] [place] [address] [place] [address] 08/29/2025 Gerald Treviño Type 2 diabetes mellitus without complication, without long-term current use of insulin E11.9 ; Gout M10.9 ; Hypercalcemia E83.52 ; Carpal tunnel syndrome, right G56.01 ; Essential hypertension I10 ; 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 She was given a supply of prednisone to use for recurrences nights, weekends.If she has frequent episodes allopurinol will be considered. 08/29/2025 Hypercalcemia (ICD-10 - E83.52) A repeat set of labs with the calcium and uric acid has been ordered. 08/29/2025 Carpal tunnel syndrome, right (ICD-10 - G56.01) The pain in her wrist has improved and is not a significant problem today. She is more focused upon shoulder pain. 08/29/2025 Essential hypertension (ICD-10 - I10) Her blood pressure is slightly high at 143/75. She does not wish to take additional blood pressure medication at this time. She says she is going to lose weight and restrict sodium. Follow-up appointment was given in the near future. 08/29/2025 Non insulin dependent diabetes mellitus with ophthalmic [...] she declined wishing to use injected medications. 08/29/2025 Obesity (BMI 30.0-34.9) (ICD-10 - E66.9) Her weight is stable from her last visit at 171 pounds. Her BMI is in the obese range. We made a plan today to lose weight at a rate of one half of a pound per week through regular physical activity and a diet restricted in fat calories and sodium. 08/29/2025 Former smoker (ICD-10 - Z87.891) We have discussed a plan to prevent relapse in times of stress and illness. Plan Of Treatment Medication Medication Name Sig Start Date Stop Date Notes hydroCHLOROthiazide 25 MG 1 tablet in th e morning Orally Once a day Pioglitazone HCl 15 MG 1 tablet Orally Once a day 12/29/19 FreeStyle Lite Test - - In Vitro test bl ood sugar twice a day predniSONE 20 MG 2 tablets with food or milk Orally Once a day for 3 days 08/29/2025 10/03/2025 FreeStyle Lancets - test blood sugar twice a day Lisinopril 10 MG TAKE 1 TABLET BY JANICE TH EVERY DAY FOR 90 DAYS metFORMIN HCl 500 MG TAKE 2 TABLETS BY M OUTH TWICE A DAY WITH MEALS Simvastatin 10 MG TAKE 1 TABLET BY JANICE TH EVERY DAY Orally Once a day glipiZIDE 10 MG 1 tablet Orally twice a day 11/26/2024 Pending Test Test Name Order Date Uric Acid 08/29/2025 Microalbumin, Random 08/29/2025 Next Appt Details Follow Up: As Scheduled, Ashwini son: Annual Exam Provider Name:Gerald Treviño , 01/06/2026 03:45:00 PM, [address] [facility] [address], [place], [address], Provider Name:Gerald Treviño , 10/09/2026 03:30:00 PM, [address] [facility] [place], [address], Progress Notes * Raghu VERAS:[birth year] (64 yo F)Acc No.[id number]:08/29/2025 Progress Notes Patient: Eve LAMAR Provider: Sofia Trevñio MD :1960 A ge:64 Y S ex:Female Date:08/29/2025 Address:[address] [place] [address], [facility], [place], [id number] Subjective: * Chief Complaints: * L eft knee painGout August 22, 2025 left kneeHypertensionDiabetesObesityHyperlipidemia * HPI: C OVID-19 Screening: On August 22, 2025 she developed severe pain in the left knee expectantly. This was without trauma. She went to the emergency room at [facility] where she was treated for gout. She was given a prescription for indometthacin. The pain has completely resolved. On examination the joints were normal. She was given a prescription for prednisone 40 mg for 3 days to keep at home and use if she has an attack of acute gout nights her weekends.? Blood work with a uric acid level was ordered.I have discussed her treatment of acute, with her? at length today. Questions H ave you had any new onset fever, chills, cough, congestion, sore throat, shortness of breath, muscle aches? N o * ROS: G eneral/Constitutional: pain R ecent left knee pain. C hills d enies. F atigue a [...] Muscle aches d enies. P ainful joints L eft knee.?Sciatica d enies. W eakness d enies. S kin: Itching d enies. R rafael d enies. S kin lesion(s)?denies. N eurologic: Difficulty speaking d enies. D izziness d enies.?Headache d enies. L ow back pain d enies. P sychiatric: Depressed mood d enies. * Medical History: * Surgical History: c esarean section X2 tubal ligation colonoscopy, Dr. Ospina 01/2019Uter[place] [facility] [place]No history * Hospitalization/Major Diagno stic Procedure: [...] x-cigarette smoker S he was born in [place] and moved to [facility] when she was 8 years old. She was raised in [place]. She has 2 sons, Michael 34 years old and juan jose 30 years old, who are alive and well. She has no grandchildren. * Medications: T akingSimvastatin 10 MG Tablet TAKE 1 TABLET BY MOUTH EVERY DAY Orally Once a day glipiZIDE 10 MG Tablet 1 tablet Orally twice a day Lisinopril 10 MG Tablet TAKE 1 TABLET BY MOUTH EVERY DAY FOR 90 DAYS metFORMIN HCl 500 MG Tablet TAKE 2 TABLETS BY MOUTH TWICE A DAY WITH MEALS FreeStyle Lite Test - Strip - In Vitro test blood sugar twice a day FreeStyle Lancets - Miscellaneous test blood sugar twice a day hydroCHLOROthiazide 25 MG Tablet 1 tablet in the morning Orally Once a day Pioglitazone HCl 15 MG Tablet 1 tablet Orally Once a day Medication List reviewed and reconciled with the patientTaking Simvastatin 10 MG Tablet TAKE 1 TABLET BY MOUTH EVERY DAY Orally Once a day Taking glipiZIDE 10 MG Tablet 1 tablet Orally twice a day Taking Lisinopril 10 MG Tablet TAKE 1 TABLET BY MOUTH EVERY DAY FOR 90 DAYS Taking metFORMIN HCl 500 MG Tablet TAKE 2 TABLETS BY MOUTH TWICE A DAY WITH MEALS Taking FreeStyle Lite Test - Strip - In Vitro test blood sugar twice a day Taking FreeStyle Lancets - Miscellaneous test blood sugar twice a day Taking hydroCHLOROthiazide 25 MG Tablet 1 tablet in the morning Orally Once a day Taking Pioglitazone HCl 15 MG Tablet 1 tablet Orally Once a day Medication List reviewed and reconciled with the patient * Allergies: N o Known Drug Allergyno[Allergies Verified] Objective: * Vitals: H t: 61, Wt: 174, BMI:32.87, BP: 127/68, HR: 76, Temp: 97.7, Wt-k.93. * Examination: G eneral Examination: GENERAL APPEARANCE: p leasant, well nourished, well developed, in no acute distress, calm and relaxed: obese: woman. HEAD: a traumatic, normocephalic. EYES: e [...] sounds normal, no ascites, no organomegaly, no mass: centripital obesity. RECTAL EXAM: n ot examined. MUSCULOSKELETAL: e xtremities unremarkable, no clubbing, cyanosis or edema, No effusion and normal range of motion left. PERIPHERAL PULSES: n ormal. NEUROLOGIC: a lert and oriented, cranial nerves 2-12 grossly intact, deep tendon reflexes 2+ symmetrical, motor strength normal upper and lower extremities, sensory exam intact. PSYCH: a lert, oriented. Assessment: * Assessment: 1. G out - M10.9 (Primary) N otes :The acute episode has resolved. She was given a supply of prednisone to use for recurrences nights, weekends.If she has frequent episodes allopurinol will be considered. 2 . T ype 2 diabetes mellitus without complication, without long-term current use of insulin - E11.9 3 . H ypercalcemia - E83.52 N otes :A repeat set of labs with the calcium and uric acid has been ordered. 4 . C arpal tunnel syndrome, right - G56.01 N otes :The pain in her wrist has improved and is not a significant problem today. She is more focused upon shoulder pain. 5 . E ssential hypertension - I10 N otes :Her blood pressure is slightly high at 143/75. She does not wish to take additional blood pressure medication at this time. She says she is going to lose weight and restrict sodium. Follow-up appointment was given in the near future. 6 . N on insulin dependent diabetes mellitus with ophthalmic complication - E11.39 N otes :Her fasting glucose was 212. The hemoglobin [...] she declined wishing to use injected medications. 7 . O besity (BMI 30.0-34.9) - E66.9 N otes :Her weight is stable from her last visit at 171 pounds. Her BMI is in the obese range. We made a plan today to lose weight at a rate of one half of a pound per week through regular physical activity and a diet restricted in fat calories and sodium. 8 . F ormer smoker - Z87.891 N otes :We have discussed a plan to prevent relapse in times of stress and illness. Plan: * Treatment: 2. H ypercalcemia L AB: Uric Acid L AB: Microalbumin, Random 3. O thers Continue Simvastatin Tablet, 10 MG, TAKE 1 TABLET BY MOUTH EVERY DAY, Orally, Once a day; C ontinue glipiZIDE Tablet, 10 MG, 1 tablet, Orally, twice a day; C ontinue Lisinopril Tablet, 10 MG, TAKE 1 TABLET BY MOUTH EVERY DAY FOR 90 DAYS; C ontinue metFORMIN HCl Tablet, 500 MG, TAKE 2 TABLETS BY MOUTH TWICE A DAY WITH MEALS; C ontinue FreeStyle Lite Test Strip, -, -, In Vitro, test blood sugar twice a day; C ontinue FreeStyle Lancets Miscellaneous, -, test blood sugar twice a day; C ontinue hydroCHLOROthiazide Tablet, 25 MG, 1 tablet in the morning, Orally, Once a day; Continue Pioglitazone HCl Tablet, 15 MG, 1 tablet, Orally, Once a day; S tart predniSONE Tablet, 20 MG, 2 tablets with food or milk, Orally, Once a day, 3 days, 6 Tablet, Refills 11. ? * Procedure Codes: * [...] tobacco use and urged to quit. 0 08/29/2025 DM Care Plan: P atient Lifestyle Goals P atient wants to be able to manage diabetes without too much effort. T reatment Goals B lood Sugars less than < 115.? B arriers n o barriers. S elf-Managment Goals W ork on weight loss, with a goal of losing 1 lb per week. * Follow Up: A s Scheduled (Reason: Annual Exam) * Images: * Sign off status: Completed true * Provider: Sofia Treviño MD Date: 0 08/29/2025 Generated for oJrdani gordon/Kadeem/Renasmitting on: 12/05/2024 04:01 PM EST History and Physical Notes * HPI (History of Present Illness) Category Sub-Category Detail Notes COVID-19 Screening Questions Have you had any new onset fever, chills, cough, congestion, sore throat, shortness of breath, muscle aches?: No Examination Category Sub-Category Detail Notes General Examination GENERAL APPEARANCE: pleasant , well nourished, well developed, in no acute distress, calm and relaxed: obese: woman HEAD: atraumatic, normocep halic EYES: eomi, perrla, anicte santos, conjugate EARS: normal NOSE: septum intact NECK/THYROID: no jugular venous di stention, no carotid bruit, thyroid normal HEART: no clicks, gallops, murmurs, or rubs, regular rhythm, S1, S2 normal, no s3, or vascular bruits LUNGS: clear to auscultatio n ABDOMEN: bowel sounds normal, no ascites, no organomegaly, no mass: centripital obesity NEUROLOGIC: alert and oriented, cranial nerves 2-12 grossly intact, deep tendon reflexes 2+ symmetrical, motor strength normal upper and lower extremities, sensory exam intact SKIN: no suspicious lesion s, anicteric PERIPHERAL PULSES: normal BREASTS: Not examined MUSCULOSKELETAL: extremities unremark able, no clubbing, cyanosis or edema, No effusion and normal range of motion left LYMPH NODES: no enlarged lymph no viv,spleen normal RECTAL EXAM: not examined PSYCH: alert, oriented ORAL CAVITY: normal, unremarkable
--- OUTSIDE RECORDS SUMMARY | 2025-10-05 04:30 | XMS_ITS ---
Author Organization Gerald Treviño III, MD Address [address] [place] [address] Care Team Providers Care Telecommunications Engineer Name Role Phone Dr. Gerald Treviño III Primary Care Provider Allergies Allergen (clinical drug ingredient) Drug/Non Drug Allergy documented on EMR Reaction Allergy Type Onset Date Status No Known Drug Allergy Unknown Drug Allergy Active No Known Food Allergy Unknown Drug Allergy Active REASON FOR VISIT Annual Exam Medications Medication SIG (Take, Route, Frequency, Duration) Notes Start Date End Date Status Pioglitazone HCl 15 MG 1 tablet Orally Once a day 12/29/2024 Active Miconazole 7 2 % 1 applicatorful at bedtime Vaginal Once a day for 7 days 10/05/2025 5 Active FreeStyle Lancets - test blood sugar twice a day Active hydroCHLOROthiazide 25 MG 1 tablet in th e morning Orally Once a day Active Trulicity 0.75 MG/0.5ML as directed Subcutaneous weekly for 28 days 10/05/2025 6 Active metFORMIN HCl 500 MG TAKE 2 TABLETS BY MOUTH TWICE A DAY WITH MEALS Active FreeStyle Lite Test - - In Vitro test blood sugar twice a day Active Simvastatin 10 MG TAKE 1 TABLET BY MOUTH EVERY DAY Orally Once a day Active Lisinopril 10 MG TAKE 1 TABLET BY MOUTH EVERY DAY FOR 90 DAYS Active FreeStyle Lite w/Device use to check blo od sugars twice a day for 90 days DX: Diabetes E11.9 10/05/2025 Active FreeStyle Lite Test - use to check blood sugars twice a day for 90 days DX: Diabetes E11.9 10/05/2025 Active Social History Tobacco Use: Social History [...] Answer Notes Did you have a drink contain ing alcohol in the past year? Yes How often did you have six o r more drinks on one occasion in the past year? Less than monthly (1 point) How many drinks did you have on a typical day when you were drinking in the past year? 1 or 2 drinks (0 point) How often did you have a dri nk containing alcohol in the past year? Never (0 point) Points 1 Interpretation Negative Vital Signs Temperature 98.2 degrees Fahrenheit 10/05/20 25 Blood pressure systolic 128 mm Hg 10/05/20 25 Blood pressure diastolic 75 mm Hg 025 Heart Rate 60 /min 10/05/2025 Height 61 in 10/05/2025 Weight 174 lbs 10/05/2025 BMI 32.87 kg/m2 10/05/2025 Encounters Encounter Location Date Provider Diagnosis Gerald Treviño III, MD [address] [place] [address] [place] [address] 10/05/2025 Gerald Treviño Essential hypertensi on I10 ; Type 2 diabetes mellitus without complication, without long-term current use of insulin E11.9 ; Obesity (BMI 30.0-34.9) E66.9 and UTI symptoms R39.9 Assessments Encounter Date Diagnosis (ICD Code) Assessment Notes Treat ment Notes Treatment Clinical Notes 10/05/2025 Essential hypertension (ICD-10 - I10) Her blood pressure is currently at target. No change in her regimen was needed today. 10/05/2025 Type 2 diabetes mellitus without complication, without long-term current use of insulin (ICD-10 - E11.9) Her hemoglobin A1c has increased to 9.9. I have prescribed trulicity. We reviewed her diet and nutrition. She is going to lose weight aggressively. 10/05/2025 Obesity (BMI 30.0-34.9) (ICD-10 - E66.9) Her body mass index is stable at 32. We reviewed her diabetic diet and her weight loss strategy. We made a plan to lose weight at a rate of one half of a pound per week. 10/05/2025 UTI symptoms (ICD-10 - R39.9) Urine culture was sent today. Plan Of Treatment Medication Medication Name Sig Start Date Stop Date Notes Pioglitazone HCl 15 MG 1 tablet Orally O nce a day 12/29/2024 Miconazole 7 2 % 1 applicatorful at bedtime Vaginal Once a day for 7 days 10/05/2025 11/16/2025 FreeStyle Lancets - test blood sugar twice a day hydroCHLOROthiazide 25 MG 1 tablet in th e morning Orally Once a day Trulicity 0.75 MG/0.5ML as directed Subcutaneous weekly for 28 days 10/05/2025 09/06/2026 metFORMIN HCl 500 MG TAKE 2 TABLETS BY MOUTH TWICE A DAY WITH MEALS FreeStyle Lite Test - - In Vitro test bl ood sugar twice a day Simvastatin 10 MG TAKE 1 TABLET BY MOUTH EVERY DAY Orally Once a day Lisinopril 10 MG TAKE 1 TABLET BY MOUTH EVERY DAY FOR 90 DAYS FreeStyle Lite w/Device use to check blo od sugars twice a day for 90 days 10/05/2025 DX: Diabetes E11.9 FreeStyle Lite Test - use to check blood sugars twice a day for 90 days 10/05/2025 DX: Diabetes E11.9 Pending Test Test Name Order Date PROFILE, FASTING (COMPREHENSIVE METABOLI C) 10/05/2025 CBC w DIFF 10/05/2025 URINALYSIS (UA) 10/05/2025 Lipid Panel 10/05/2025 Microalbumin, Random 10/05/2025 Urine Culture 10/05/2025 Hemoglobin A1c 10/05/2025 Next Appt Details Follow Up: 3 Months, Reason: OV Provider Name:Gerald Rasmussen Hudson , 01/06/2026 03:45:00 PM, [address] [place] [address] [place], [address], Provider Name:Gerald Treviño , 10/09/2026 03:30:00 PM, [address] [place] [address] [place], [address], Progress Notes * Raghu VERAS:[birth year] (65 yo F)Acc No.[id number]:10/05/2025 Progress Notes Patient: Eve LAMAR Provider: Sofia Treviño MD :1960 A ge:65 Y S ex:Female Date:10/05/2025 Address:[address] [place] [address], [facility] [place], [place], [id number] Subjective: * Chief Complaints: * A nnual Exam * HPI: D epression Screening: He returns to the office for annual visit. She says she is up-to-date with her mammograms and her colonoscopies. She says she ate a lot of candy and hollowing and has been off her diet recently.Her weight is stable at 174 with a body mass index of 32. Her hemoglobin A1c and cholesterol are significantly worse than in the past. Her blood work was reviewed with her. I have recommended that she take trulicity and she has agreed. PHQ-9 L ittle interest or pleasure in doing things?Not at all F eeling down, depressed, or hopeless N ot at all T rouble falling or staying asleep, or sleeping too much S everal days F eeling tired or having little energy S everal days P oor appetite or overeating N early every day F eeling bad about yourself or that you are a failure, or have let yourself or your family down N ot at all T rouble concentrating on things, such as reading the newspaper or watching television N ot at all M oving or speaking so slowly that other people could have noticed; or the opposite, being so fidgety or restless that you have been moving around a lot more than usual N ot at all T houghts that you would be better off or of hurting yourself in some way N ot at all T otal Score 5 I nterpretation M ild Depression Interpretation and Intervention D epression Screening Findings P ositive S uicide Risk Assessment Performed 1 12/05/2024 S SUSAN Questions: SDOH Questions I n the past year have you been worried about losing your housing? N o I n the past year have you or any family members you live with been unable to get any of the following when it was really needed? Check all that apply: N one * ROS: G eneral/Constitutional: pain o nly [...] enies. D iarrhea d enies. H e[place] c ontrolled with medications. N ausea d enies. R ectal bleeding [...] colonoscopy, [place] Ospina [place] [facility] [place] Hospitalization/Major Diagno stic Procedure: N o [...] drink containing alcohol in the past year? Y es H ow often did you have six or more drinks on one occasion in the past year? L ess than monthly (1 point) H ow many drinks did you have on a typical day when you were drinking in the past year? 1 or 2 drinks (0 point) H ow often did you have a drink containing alcohol in the past year? N ever (0 point) P oints 1 I nterpretation N egative S he was born in [place] and moved to [facility] when she was 8 years old. She was raised in [place]. She has 2 sons, Michael 34 years old and juan jose 30 years old, who are alive and well. She has no grandchildren. * Medications: T akingSimvastatin 10 MG Tablet TAKE 1 TABLET BY MOUTH EVERY DAY Orally Once a day Lisinopril 10 MG Tablet TAKE [...] Tablet 1 tablet Orally Once a day Taking Simvastatin 10 MG Tablet TAKE 1 TABLET BY MOUTH EVERY DAY Orally Once a day Taking Lisinopril 10 MG Tablet [...] Tablet 1 tablet Orally Once a day DiscontinuedglipiZIDE 10 MG Tablet 1 tablet Orally twice a day Medication List reviewed and reconciled with the patientDiscontinued glipiZIDE 10 MG Tablet 1 tablet Orally twice a day Medication List reviewed and reconciled with the patient * Allergies: N o Known Drug AllergyNo Known Food Allergyno[Allergies Verified] Objective: * Vitals: H t: 61, Wt: 174, BMI:32.87, BP: 128/75, HR: 60, Temp: 98.2, Wt-k.93. * P ast Orders: Lab:Lipid Panel * Collection Date 10/04/2025 12/25/2024 10/02/2024 Collection Time 07:44 AM 09:30 AM 09:44 AM Order Date 10/04/2025 12/25/2024 09/30/2024 Triglycerides 283 H (Ref Range: <150 mg/dL) 219 H (Ref Range: <150 mg/dL) 225 H (Ref Range: <150 mg/dL) Cholesterol 280 H (Ref Range: <200 mg/dL) 225 H (Ref Range: <200 mg/dL) 234 H (Ref Range: <200 mg/dL) LDL Cholesterol Calculated 183 H (Ref Range: <100 mg/dL) 144 H (Ref Range: <100 mg/dL) 149 H (Ref Range: <100 mg/dL) HDL Cholesterol 41 (Ref Range: >40 mg/dL) 38 L (Ref Range: >40 mg/dL) 40 L (Ref Range: >40 mg/dL) Clinical Info: Please have t his testing 1 week prior to your next appointment,Please fast for 12-14 hours prior to having this labwork done. You may have black coffee or tea with no milk or sugar. May have water,PLEASE FAX COMPLETED RESULTS TO [phone] Please have this testing done as soon as possible,Please fast for 12-14 hours prior to having this labwork done. You may have black coffee or tea with no milk or sugar. May have water,PLEASE FAX COMPLETED RESULTS TO [phone] * Lab:Microalbumin, Random * Collection Date 10/04/2025 12/25/2024 10/02/2024 Collection Time 07:45 AM 09:30 AM 09:40 AM Order Date 10/04/2025 12/25/2024 10/02/2024 Creatinine Urine 85.44 (Ref Range: mg/dL) 125.69 (Ref Range: mg/dL) 157.46 (Ref Range: mg/dL) Microalbumin Urine 11.0 (Ref Range: mg/L) 30.0 (Ref Range: mg/L) 51.0 (Ref Range: mg/L) Microalbum Creatinine Ratio Ur 12.8 (Ref Range: <30 ug/mg cr) 23.8 (Ref Range: <30 ug/mg cr) 32.3 H (Ref Range: <30 ug/mg cr) * Lab:Hemoglobin A1c * Collection Date 10/04/2025 12/25/2024 10/02/2024 Collection Time 07:44 AM 09:30 AM 09:44 AM Order Date 10/04/2025 12/25/2024 09/30/2024 Hemoglobin A1c % 9.9 H (Ref Range: <6.0 %) 8.7 H (Ref Range: <6.0 %) 8.4 H (Ref Range: <6.0 %) Estimated Average Glucose 237 (Ref Range: mg/dL) 203 (Ref Range: mg/dL) 194 (Ref Range: mg/dL) Clinical Info: Please have t his testing 1 week prior to your next appointment,Please fast for 12-14 hours prior to having this labwork done. You may have black coffee or tea with no milk or sugar. May have water,PLEASE FAX COMPLETED RESULTS TO [phone] Please have this testing done as soon as possible,Please fast for 12-14 hours prior to having this labwork done. You may have black coffee or tea with no milk or sugar. May have water,PLEASE FAX COMPLETED RESULTS TO [phone] * Lab:Complete Blood Count Aut o Diff * Collection Date 10/04/2025 12/25/2024 10/02/2024 Collection Time 07:44 AM 09:30 AM 09:44 AM Order Date 10/04/2025 12/25/2024 10/02/2024 White Blood Count 7.5 (Ref Range: 4.8-10.8 X10*3/uL) 7.7 (Ref Range: 4.8-10.8 X10*3/uL) 7.2 (Ref Range: 4.8-10.8 X10*3/uL) Red Blood Count 4.65 (Ref Range: 4.20-5.50 X10*6/uL) 4.67 (Ref Range: 4.20-5.50 X10*6/uL) 4.51 (Ref Range: 4.20-5.50 X10*6/uL) Hemoglobin 13.0 (Ref Range: 12.0-16.0 g/dl) 13.2 (Ref Range: 12.0-16.0 g/dl) 12.8 (Ref Range: 12.0-16.0 g/dl) Hematocrit 40.0 (Ref Range: 37.0-47.0 %) 40.0 (Ref Range: 37.0-47.0 %) 38.5 (Ref Range: 37.0-47.0 %) Mean Corpuscular Volume 86.0 (Ref Range: 80.0-98.0 fL) 85.7 (Ref Range: 80.0-98.0 fL) 85.4 (Ref Range: 80.0-98.0 fL) Mean Corpuscular Hemoglobin 28.0 (Ref Range: 27.0-33.0 pg) 28.3 (Ref Range: 27.0-33.0 pg) 28.4 (Ref Range: 27.0-33.0 pg) Mean Corpuscular HGB Conc 32.5 (Ref Range: 31.0-35.0 g/dl) 33.0 (Ref Range: 31.0-35.0 g/dl) 33.2 (Ref Range: 31.0-35.0 g/dl) Red Cell Distribution Width 13.1 (Ref Range: 11.0-16.0 %) 12.9 (Ref Range: 11.0-16.0 %) 12.9 (Ref Range: 11.0-16.0 %) Platelet Count 254 (Ref Range: 160-400 X10*3/uL) 226 (Ref Range: 160-400 X10*3/uL) 232 (Ref Range: 160-400 X10*3/uL) Mean Platelet Volume 11.8 (Ref Range: 9.4-12.3 fL) 11.3 (Ref Range: 9.4-12.3 fL) 11.7 (Ref Range: 9.4-12.3 fL) Neutrophils Percent Auto 46.2 (Ref Range: 45-73 %) 48.3 (Ref Range: 45-73 %) 54.0 (Ref Range: 45-73 %) Imm Gran Pct Auto 1.3 H (Ref Range: 0.0-0.4 %) 1.8 H (Ref Range: 0.0-0.4 %) 1.1 H (Ref Range: 0.0-0.4 %) Lymphocytes Percent Auto 40.8 H (Ref Range: 20-40 %) 38.2 (Ref Range: 20-40 %) 32.4 (Ref Range: 20-40 %) Monocytes Percent Auto 8.3 (Ref Range: 2-11 %) 7.5 (Ref Range: 2-11 %) 8.6 (Ref Range: 2-11 %) Eosinophils Percent Auto 2.7 (Ref Range: 0-4 %) 3.6 (Ref Range: 0-4 %) 3.5 (Ref Range: 0-4 %) Basophils Percent Auto 0.7 (Ref Range: 0-2 %) 0.6 (Ref Range: 0-2 %) 0.4 (Ref Range: 0-2 %) NRBC Pct Auto 0.0 (Ref Range: 0.0-0.2 /100WBC) 0.0 (Ref Range: 0.0-0.2 /100WBC) 0.0 (Ref Range: 0.0-0.2 /100WBC) Neutrophils Absolute Auto 3.5 (Ref Range: 2.0-8.3 x10*3/uL) 3.7 (Ref Range: 2.0-8.3 x10*3/uL) 3.9 (Ref Range: 2.0-8.3 x10*3/uL) Imm Gran Abs Auto 0.10 H (Ref Range: 0.00-0.03 X10*3/uL) 0.14 H (Ref Range: 0.00-0.03 X10*3/uL) 0.08 H (Ref Range: 0.00-0.03 X10*3/uL) Lymphocytes Absolute Auto 3.0 (Ref Range: 1.2-4.9 X10*3/uL) 3.0 (Ref Range: 1.2-4.9 X10*3/uL) 2.3 (Ref Range: 1.2-4.9 X10*3/uL) Monocytes Absolute Auto 0.6 (Ref Range: 0.1-1.2 X10*3/uL) 0.6 (Ref Range: 0.1-1.2 X10*3/uL) 0.6 (Ref Range: 0.1-1.2 X10*3/uL) Eosinophils Absolute Auto 0.2 (Ref Range: 0.0-0.4 X10*3/uL) 0.3 (Ref Range: 0.0-0.4 X10*3/uL) 0.3 (Ref Range: 0.0-0.4 X10*3/uL) Basophils Absolute Auto 0.1 (Ref Range: 0.0-0.2 X10*3/uL) 0.1 (Ref Range: 0.0-0.2 X10*3/uL) 0.0 (Ref Range: 0.0-0.2 X10*3/uL) NRBC Abs Auto 0.000 (Ref Range: 0.0-0.012 X10*3/uL) 0.000 (Ref Range: 0.0-0.012 X10*3/uL) 0.000 (Ref Range: 0.0-0.012 X10*3/uL) * Lab:Comprehensive [place]. Jaye l Fast * Collection Date 10/04/2025 12/25/2024 10/02/2024 Collection Time 07:44 AM 09:30 AM 09:44 AM Order Date 10/04/2025 12/25/2024 10/02/2024 Sodium 137 (Ref Range: 135-145 mmol/L) 139 (Ref Range: 135-145 mmol/L) 140 (Ref Range: 135-145 mmol/L) Bilirubin Total 0.4 (Ref Range: 0.0-1.0 mg/dL) 0.4 (Ref Range: 0.0-1.0 mg/dL) 0.5 (Ref Range: 0.0-1.0 mg/dL) Aspartate Amino Transferase 33 H (Ref Range: 5-31 U/L) 43 H (Ref Range: 5-31 U/L) 40 H (Ref Range: 5-31 U/L) Alanine Aminotransferase 55 H (Ref Range: 0-31 U/L) 75 H (Ref Range: 0-31 U/L) 67 H (Ref Range: 0-31 U/L) Total Protein 6.8 (Ref Range: 6.5-8.0 g/dL) 7.2 (Ref Range: 6.5-8.0 g/dL) 6.9 (Ref Range: 6.5-8.0 g/dL) Albumin Level 4.5 (Ref Range: 3.5-5.0 g/dL) 4.3 (Ref Range: 3.5-5.0 g/dL) 4.2 (Ref Range: 3.5-5.0 g/dL) Alkaline Phosphatase 120 H (Ref Range: 39-117 U/L) 126 H (Ref Range: 39-117 U/L) 109 (Ref Range: 39-117 U/L) Potassium 4.2 (Ref Range: 3.3-5.1 mmol/L) 4.0 (Ref Range: 3.3-5.1 mmol/L) 3.9 (Ref Range: 3.3-5.1 mmol/L) Chloride 104 (Ref Range: 96-108 mmol/L) 107 (Ref Range: 96-108 mmol/L) 107 (Ref Range: 96-108 mmol/L) Carbon Dioxide 27 (Ref Range: 22-29 mmol/L) 25 (Ref Range: 22-29 mmol/L) 25 (Ref Range: 22-29 mmol/L) Anion Gap 10 L (Ref Range: 12-20) 11 L (Ref Range: 12-20) 12 (Ref Range: 12-20) Blood Urea Nitrogen 16 (Ref Range: 9-16 mg/dL) 16 (Ref Range: 9-16 mg/dL) 11 (Ref Range: 9-16 mg/dL) Creatinine 0.66 (Ref Range: 0.5-1.4 mg/dL) 0.72 (Ref Range: 0.5-1.4 mg/dL) 0.73 (Ref Range: 0.5-1.4 mg/dL) Estimated Glomerular Filt Rate > 60 > 60 > 60 Glucose Fasting 241 H (Ref Range: 60-99 mg/dL) 212 H (Ref Range: 60-99 mg/dL) 254 H (Ref Range: 60-99 mg/dL) Calcium 10.3 H (Ref Range: 8.4-10.2 mg/dL) 10.7 H (Ref Range: 8.4-10.2 mg/dL) 10.8 H (Ref Range: 8.4-10.2 mg/dL) ???Lab:Uric Acid (Order Date - 10/04/2025) (Collection Date & Time - 10/04/2025 07:44 AM)?ValueReference Range?Uric Acid7.9H2.4-5.7 - mg/dL * Examination: G eneral Examination: GENERAL APPEARANCE: [...] lear to auscultation . BREASTS: N ot examined, Declined. ABDOMEN: b owel sounds normal, no ascites, [...] a lert, oriented. Assessment: * Assessment: 1. T ype 2 diabetes mellitus without complication, without long-term current use of insulin - E11.9 (Primary) N otes :Her hemoglobin A1c has increased to 9.9. I have prescribed trulicity. We reviewed her diet and nutrition. She is going to lose weight aggressively. 2 . E ssential hypertension - I10 N otes :Her blood pressure is currently at target. No change in her regimen was needed today. 3 . O besity (BMI 30.0-34.9) - E66.9 N otes :Her body mass index is stable at 32. We reviewed her diabetic diet and her weight loss strategy. We made a plan to lose weight at a rate of one half of a pound per week. 4 . U TI symptoms - R39.9 N otes :Urine culture was sent today. Plan: * Treatment: 2. E ssential hypertension L AB: PROFILE, FASTING (COMPREHENSIVE METABOLIC) L AB: CBC w DIFF L AB: Lipid Panel L AB: Microalbumin, Random L AB: Hemoglobin A1c 3. O besity (BMI 30.0-34.9) L AB: PROFILE, FASTING (COMPREHENSIVE METABOLIC) L AB: CBC w DIFF L AB: Lipid Panel L AB: Microalbumin, Random L AB: Hemoglobin A1c 4. U TI symptoms L AB: URINALYSIS (UA) L AB: Urine Culture 5. O thers Continue Simvastatin Tablet, 10 MG, TAKE 1 TABLET BY MOUTH EVERY DAY, Orally, Once a day; C ontinue Lisinopril Tablet, 10 [...] in the morning, Orally, Once a day; C ontinue Pioglitazone HCl Tablet, 15 MG, 1 tablet, Orally, Once a day; S tart Miconazole 7 Cream, 2 %, 1 applicatorful at bedtime, Vaginal, Once a day, 7 days, 7, Refills 5. * Procedure Codes: * Preventive Medicine: Counseling: [...] done: Medical or Other reason not done DM Care Plan: P atient Lifestyle Goals P atient wants to be able to manage diabetes without too much effort. T reatment Goals H bA1C < 7.0, Blood Sugars less than < 115. B arriers n o barriers. S elf-Managment Goals W ork on weight loss, with a goal of losing 1 lb per week. * Follow Up: 3 Months (Reason: OV) * Images: * Sign off status: Completed true * Provider: Sofia Treviño MD Date: 12/05/2024 Generated for Carrie leyva/Kadeem/eTransmitting on: 12/05/2024 04:00 PM EST History and Physical Notes * HPI (History of Present Illness) Category Sub-Category Detail Notes Depression Screening PHQ-9 Little inte rest or pleasure in doing things: Not at all Feeling down, depressed, or hopeless: No t at all Trouble falling or staying asleep, or sl eeping too much: Several days Feeling tired or having little energy: S everal days Poor appetite or overeating: Nearly ever y day Feeling bad about yourself o r that you are a failure, or have let yourself or your family down: Not at all Trouble concentrating on thi ngs, such as reading the newspaper or watching television: Not at all Moving or speaking so slowly that other people could have noticed; or the opposite, being so fidgety or restless that you have been moving around a lot more than usual: Not at all Thoughts that you would be b natalie off or of hurting yourself in some way: Not at all Total Score: 5 Interpretation: Mild Depression Interpretation and Intervention Depression Kassi rodarte Findings: Positive Suicide Risk Assessment Performed: 10/05 SDOH Questions SDOH Questions In the past year have you been worried about losing your housing?: No In the past year have you or any family members you live with been unable to get any of the following when it was really needed? Check all that apply:: None Examination Category Sub-Category Detail Notes General Examination [...] s, anicteric PERIPHERAL PULSES: normal BREASTS: Not examined, Declin ed MUSCULOSKELETAL: extremities unremark able, no clubbing, cyanosis or edema LYMPH NODES: no enlarged lymph no viv,spleen normal RECTAL EXAM: not examined PSYCH: alert, oriented ORAL CAVITY: normal, unremarkable
[2025-10-05 13:31] LABS: Appearance Urine Clear; Glucose Urine UA 100 mg/dL (Negative); PH 5.0 (5.0-9.0); Specific Gravity - Urine 1.015 (1.005-1.025); UMIC TRIGGER UA YES
--- OUTSIDE RECORDS SUMMARY | 2025-10-05 16:00 | XMS_ITS | Patient Health Record ---
Author Organization [facility] Address [address] [place] [address] Care Team Providers Care Remedial Project Manager Name Role Phone Gerald Treviño MD Primary Care Provider Unavailab Gerald York Unavailable [phone] Reason For Referral No Information Medications Medication [...] Problem Screening for malignant neoplasm of colon (546317978) Encounter for screening for malignant neoplasm of colon (Z12.11) Active confirmed Problem History of adenomatous polyp of colon (735020051) Hx of adenomatous colonic polyps (Z86.010) Active confirmed Problem Pre-procedure evaluation check (003194539) Pre-procedural examination (Z01.818) Active confirmed Encounters Encounter Location Date Provider Diagnosis [facility] [address] [place] [address] 01/12/2025 Gerald Ospina Plan Of Treatment Future Test Test Name Order Date COLONOSCOPY 05/11/2013 COLONOSCOPY 12/16/2018 Insurance Providers Payer Name Payer Address Payer Phone Subscriber Number Group Number Insured Name Patient Relationship to Insured Coverage Start Date Coverage End Date [facility] Application Experts [facility] [address] [place] [address] [phone] [id number] JOSE VERAS Self - patient is the insured Medical (General) History Medical History History ICD Code Colonoscopy 01/2010 and 3 with me--diverticulosis and internal hemorrhoids--no polyps Multiple tubular adenomas re moved by Dr. Poe in 12/2005---1 was > 3 cm; F/U colon in 03/2006 with only 1 small tubular adenoma Hyperlipidemia-on no meds at present delisa e HTN Denies NH,CVA,Lung disease,renal disease NIDDM Surgical History Surgery Date(Month/Year) 2 C-sections BTL
--- OUTSIDE RECORDS SUMMARY | 2025-10-05 16:01 | XMS_ITS | Patient Health Record ---
Author Organization Gerald Treviño III, MD Address [address] [place] [address] [place] [address] Care Team Providers Care Wardrobe Manager Name Role Phone Dr. Gerald Treviño III Primary Care Provider [phone] Allergies Allergen (clinical drug ingredient) Drug/Non Drug Allergy documented on EMR Reaction Allergy Type Onset Date Status No Known Drug Allergy Unknown Drug Allergy Active No Known Food Allergy Unknown Drug Allergy Active Results Component Value Reference Range Notes Complete Blood Count Auto Di ff Reviewed date:12/26/2024 04:41:39 PM Interpretation: Performing Lab:[facility], [address] [place] [phone] Notes/Report: White Blood Count 7.7 4.8-10.8 X10*3/uL [...] NRBC Abs Auto 0.000 0.0-0.012 X10*3/uL Comprehensive [place]. Panel Fa st Reviewed date:12/26/2024 04:41:39 PM Interpretation: Performing Lab:[address] [address] Notes/Report: Sodium 139 135-145 mmol/L Potassium 4.0 [...] Panel Reviewed date:12/26/2024 04:41:39 PM Interpretation: Performing Lab:[facility], [address] [place] [phone] Notes/Report: Triglycerides 219 <150 mg/dL Desirable Triglyceride: [...] Random Reviewed date:12/26/2024 04:41:39 PM Interpretation: Performing Lab:[address] [address] Notes/Report: Creatinine Urine 125.69 Microalbumin Urine 30.0 Microalbum/Creatinine Ratio Ur 23.8 <30 ug/mg cr Albumin/Creatinine Ratio Reference Ranges: Normal: < 30 ug/mg creatinine Microalbuminuria: 30 - 300 ug/mg creatinine Clinical Albuminuria: > 300 ug/mg creatinine Hemoglobin A1c Reviewed date:12/26/2024 04:41:39 PM Interpretation: Performing Lab:[address] [address] Notes/Report: Hemoglobin A1c % 8.7 <6.0 % [...] average glucose, using the formula of the H1H-Earkmvy Average Glucose study (ADAG), Diabetes Care, Vol.31,#8, Jul. 2007 XR knee LT 4V Reviewed date:06/01/2025 03:31:48 PM Interpretation: Performing Lab: Notes/Report: [address] [address] XRay Report Signed Patient: Eve Camara MR#: [id number] : 1960 Acct:[id number] Age/Sex: 64 / F ADM Date: 06/01/25 Loc: HO.ED Attending Dr: Ordering Physician: Hardeep Lee Date of Service: 06/01/25 Procedure(s): XR knee LT 4V Accession Number(s): [id number] cc: Gerald Treviño MD; Hardeep Lee EXAMINATION: [...] 06/01/25 1307 DD/ 1300 TD/TT: 06/01/25 1305 Inspector Type: [place] [address] XRay Report Signed Patient: Eve Camara MR#: [id number] : 1960 Acct:[id number] Age/Sex: 64 / F ADM Date: 06/01/25 Loc: HO.ED Attending Dr: Ordering Physician: Hardeep Lee Date of Service: 06/01/25 Procedure(s): XR kne e LT 4V Accession Number(s): [id number] cc: Gerald Treviño MD; Hardeep Lee EXAMINATION: [...] 06/01/25 1307 DD/ 1300 TD/TT: 06/01/25 1305 Inspector Type: Complete Blood Count Auto Di ff Reviewed date:10/05/2025 09:37:47 AM Interpretation: Performing Lab:[facility], [address] [place] [phone] Notes/Report: White Blood Count 7.5 4.8-10.8 X10*3/uL Red Blood Count 4.65 4.20-5.50 X10*6/uL Hemoglobin 13.0 12.0-16.0 g/dl Hematocrit 40.0 37.0-47.0 % Mean Corpuscular Volume 86.0 80.0-98.0 fL Mean Corpuscular Hemoglobin 28.0 27.0-33.0 pg Mean Corpuscular HGB Conc 32.5 31.0-35.0 g/dl Red Cell Distribution Width 13.1 11.0-16.0 % Platelet Count 254 160-400 X10*3/uL Mean Platelet Volume 11.8 9.4-12.3 fL Neutrophils Percent Auto 46.2 45-73 % Imm Gran Pct Auto 1.3 0.0-0.4 % Lymphocytes Percent Auto 40.8 20-40 % Monocytes Percent Auto 8.3 2-11 % Eosinophils Percent Auto 2.7 0-4 % Basophils Percent Auto 0.7 0-2 % NRBC Pct Auto 0.0 0.0-0.2 /100WBC Neutrophils Absolute Auto 3.5 2.0-8.3 x10*3/u L Imm Gran Abs Auto 0.10 0.00-0.03 X10*3/uL Lymphocytes Absolute Auto 3.0 1.2-4.9 X10*3/u L Monocytes Absolute Auto 0.6 0.1-1.2 X10*3/uL Eosinophils Absolute Auto 0.2 0.0-0.4 X10*3/u L Basophils Absolute Auto 0.1 0.0-0.2 X10*3/uL NRBC Abs Auto 0.000 0.0-0.012 X10*3/uL Comprehensive [place]. Panel Fa Reviewed date:10/05/2025 09:37:47 AM Interpretation: Performing Lab:[facility], [address] [place] [phone] Notes/Report: Sodium 137 135-145 mmol/L Potassium 4.2 3.3-5.1 mmol/L Chloride 104 96-108 mmol/L Carbon Dioxide 27 22-29 mmol/L Anion Gap 10 12-20 Blood Urea Nitrogen 16 9-16 mg/dL Creatinine 0.66 0.5-1.4 mg/dL Estimated Glomerular Filt Rate > 60 Chronic Kidney Disease: Estimated GFR < 60 mL/min/1.73m2 Severe Kidney Disease: Estimated GFR < 15 mL/min/1.73m2 Glucose Fasting 241 60-99 mg/dL A fasting glucose of 126 mg/dl or greater on more than one occasion is considered diagnostic of diabetes. Calcium 10.3 8.4-10.2 mg/dL Bilirubin Total 0.4 0.0-1.0 mg/dL Aspartate Amino Transferase 33 5-31 U/L Alanine Aminotransferase 55 0-31 U/L Total Protein 6.8 6.5-8.0 g/dL Albumin Level 4.5 3.5-5.0 g/dL Alkaline Phosphatase 120 39-117 U/L Uric Acid Reviewed date:10/05/2025 09:37:47 AM Interpretation: Performing Lab:[facility], [address] [place] [phone] Notes/Report: Uric Acid 7.9 2.4-5.7 mg/dL Lipid Panel Reviewed date:10/05/2025 09:37:47 AM Interpretation: Performing Lab:[facility], [address] [place] [phone] Notes/Report: Triglycerides 283 <150 mg/dL Desirable Triglyceride: less than 150 mg/dL Borderline High Triglyceride 150-199 mg/dL High Triglyceride: 200-499 mg/dL Very High Triglyceride: greater than or equal to 5OO mg/dL Cholesterol 280 <200 mg/dL Desirable Cholesterol: less than 200 mg/dL Borderline High Cholesterol: 200-239 mg/dL High Cholesterol: greater than 239 mg/dL LDL Cholesterol Calculated 183 <100 mg/dL Desirable LDL: less than 100 mg/dL Near Optimal/Above Optimal LDL: 110-129 mg/dL Borderline High LDL: 130-159 mg/dL High LDL: 160-189 mg/dL Very High LDL: greater than or equal to 190 mg/dL HDL Cholesterol 41 >40 mg/dL Desirable HDL: greater than 40 mg/dL Note: This HDL assay may give artificially low results in patients with liver disease. Microalbumin, Random Reviewed date:10/05/2025 09:37:47 AM Interpretation: Performing Lab:[facility], [address] [place] [phone] Notes/Report: Creatinine Urine 85.44 Microalbumin Urine 11.0 Microalbum/Creatinine Ratio Ur 12.8 <30 ug/mg cr Albumin/Creatinine Ratio Reference Ranges: Normal: < 30 ug/mg creatinine Microalbuminuria: 30 - 300 ug/mg creatinine Clinical Albuminuria: > 300 ug/mg creatinine Hemoglobin A1c Reviewed date:10/05/2025 09:37:47 AM Interpretation: Performing Lab:[facility], [address] [place] [phone] Notes/Report: Hemoglobin A1c % 9.9 <6.0 % Hemoglobin A1C Reference Range Adults: 4.8 - 6.0 % Non diabetic: < 6.0 % Goal: < 7.0 % Additional Action Suggested: > 8.0 % Note: Hemoglobin A1c results are invalid for patients with abnormal amounts of HbF. Blood transfusions may impact the HbA1c concentration in the patient sample. Estimated Average Glucose 237 eAG = Estimated average glucose which is %A1C expressed as average glucose, using the formula of the G9A-Icolpes Average Glucose study (ADAG), Diabetes Care, Vol.31,#8, Jul. 2007 Urinalysis and Microscopic ( Not yet reviewed by provider) Interpretation: Performing Lab:[address] [address] Notes/Report: Color Urine Yellow Appearance Urine Clear PH 5.0 5.0-9.0 Glucose Urine UA 100 Negative mg/dL Urine Blood Negative Negative Specific Bim - Urine 1.015 1.005-1.025 Urine Protein Negative Neg-Trace mg/dL Urine Ketones Negative Negative mg/dL Nitrite Urine Negative Negative Leukocyte Esterase Urine Trace Negative RBC Urine 0-2 0-2 /HPF WBC Urine 0-5 0-5 /HPF Squamous Epithelial Cell Urine 0-2 0-2 /HPF Bacteria Urine None Seen None Seen Hyaline Casts Urine 0-2 0-2 /LPF Reason For Referral No Information Medications Medication SIG (Take, Route, Frequency, Duration) Notes Start Date End Date Status metFORMIN HCl 500 MG TAKE 2 TABLETS BY MOUTH TWICE A DAY WITH MEALS Active FreeStyle Lite Test - - In Vitro test blood sugar twice a day Active Pioglitazone HCl 15 MG 1 tablet Orally Once a day 12/29/2024 Active Miconazole 7 2 % 1 applicatorful at bedtime Vaginal Once a day for 7 days 10/05/2025 Active FreeStyle Lite w/Device use to check blo od sugars twice a day for 90 days DX: Diabetes E11.9 10/05/2025 Active FreeStyle Lancets - test blood sugar twice a day Active hydroCHLOROthiazide 25 MG 1 tablet in th e morning Orally Once a day Active Simvastatin 10 MG TAKE 1 TABLET BY MOUTH EVERY DAY Orally Once a day Active Trulicity 0.75 MG/0.5ML as directed Subcutaneous weekly for 28 days 10/05/2025 Active Lisinopril 10 MG TAKE 1 TABLET BY MOUTH EVERY DAY FOR 90 DAYS Active FreeStyle Lite Test - use to check blood sugars twice a day for 90 days DX: Diabetes E11.9 10/05/2025 Active Immunizations Vaccine Route Administration Date Status Comme nts COVID- 19 Vaccine Unknown 02/24/2021 Administered COVID- 19 Vaccine Unknown 03/24/2021 Administered Influenza Vaccine Afluria IM Intramuscular 09/30/2024 Admi nistered Influenza Vaccine Afluria Unknown 09/19/2025 Administer ed Social History Tobacco Use: Social History Observation [...] Never (0 point) Points 1 Interpretation Negative Problems Problem Type SNOMED Code ICD Code Onset Dates Problem Status W/U Status Risk Notes Problem 5054298 Former smoker (Z87.891) Active confirmed We have discussed a plan to prevent relapse in times of stress and illness. Problem 912200385469240 Obesity (BMI 30.0-34.9) (E66.9) Active confirmed Her body mass index is stable at 32. We reviewed her diabetic diet and her weight loss strategy. We made a plan to lose weight at a rate of one half of a pound per week. Problem 57566622 Intramural leiomyoma of uterus (D25.1) Active confirmed Problem 245298348 Mixed hyperlipidemia (E78.2) Active confirmed Her total cholesterol is 225. I discussed weight loss and diet with her today. I recommended a Mediterranean diabetic diet. We made plans to lose weight at a rate of one half of a pound per week. Her current medications were continued. Problem 49724893 Hypercalcemia (E83.52) Active confirmed A repeat set of labs with the calcium and uric acid has been ordered. Problem Endometrial hyperplasia (304239407) Endometrial hyperplasia, unspecified (N85.00) Active confirmed Problem Gout (78505679) Gout (M10.9) Active confirmed The acute episode has resolved. She was given a supply of prednisone to use for recurrences nights, weekends.If she has frequent episodes allopurinol will be considered. Problem 03370956 Essential hypertension (I10) Active confirmed Her blood pressure is currently at target. No change in her regimen was needed today. Problem 442050426571084 Carpal tunnel syndrome, right (G56.01) Active confirmed The pain in her wrist has improved and is not a significant problem today. She is more focused upon shoulder pain. Problem 04024234 Stress incontinence of urine (N39.3) Active confirmed He is occasionally incontinent. This problem has not worsened. We discussed a referral to urology, and she will consider it. Problem 350280522 Type 2 diabetes mellitus without complication, without long-term current use of insulin (E11.9) Active confirmed Her hemoglob in A1c has increased to 9.9. I have prescribed trulicity. We reviewed her diet and nutrition. She is going to lose weight aggressively. Problem 482770364 Adenomatous polyp of colon, unspecified part of colon (D12.6) Active confirmed She denies any recent dental pain or bleeding. She will be referred to GI at the appropriate time. 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 Problem 736755563 Abnormal liver function test (R94.5) Active confirmed Her transaminase enzymes are rising again. They had been normalizing. This is likely due to uncontrolled diabetes which will be addressed.Thes e values will be carefully observed. 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.39 ; Obesity (BMI 30.0-34.9) E66.9 ; Former smoker Z87.891 ; Mixed hyperlipidemia E78.2 ; Abnormal liver function test R94.5 and Hypercalcemia E83.52 Gerald Treviño III, MD [address] [place] [address] [place] [address] 08/29/2025 Gerald Treviño Type 2 diabetes haydee itus without complication, without long-term current use of insulin E11.9 ; Gout M10.9 ; Hypercalcemia E83.52 ; Carpal tunnel syndrome, right G56.01 ; Essential hypertension I10 ; 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.] current use of insulin (ICD-10 - E11.9) 10/05/2025 Essential hypertension (ICD-10 - I10) Her blood pressure is currently at target. No change in her regimen was needed today. 10/05/2025 Type 2 diabetes mellitus without complication, without long-term current use of insulin (ICD-10 - E11.9) Her hemoglobin A1c has increased to 9.9. I have prescribed trulicity. We reviewed her diet and nutrition. She is going to lose weight aggressively. 12/29/2024 Obesity (BMI 30.0-34.9) (ICD-10 - E66.9) [...] calcium and uric acid has been ordered. 10/05/2025 Obesity (BMI 30.0-34.9) (ICD-10 - E66.9) Her body mass index is stable at 32. We reviewed her diabetic diet and her weight loss strategy. We made a plan to lose weight at a rate of one half of a pound per week. 12/29/2024 Former smoker (ICD-10 - Z87.891) We have discussed a plan to prevent relapse in times of stress and illness. 08/29/2025 Carpal tunnel syndrome, right (ICD-10 - G56.01) The pain in her wrist has improved and is not a significant problem today. She is more focused upon shoulder pain. 10/05/2025 UTI symptoms (ICD-10 - R39.9) Urine culture was sent today. 12/29/2024 Mixed hyperlipidemia (ICD-10 - E78.2) Her [...] medications. 12/29/2024 Hypercalcemia (ICD-10 - E83.52) [facility] calcium level is 10.7. Hyperparathyroidism is [...] C) 10/09/2022 PROFILE, FASTING (COMPREHENSIVE METABOLI C) 10/05/2025 HEMOGLOBIN A1C (GLYCOHEMOGLOBIN) 023 HEMOGLOBIN A1C (GLYCOHEMOGLOBIN) 022 HEMOGLOBIN A1C (GLYCOHEMOGLOBIN) 022 URIC ACID 10/09/2022 LIPID PANEL 01/21/2023 LIPID PANEL 10/09/2022 MICROALBUMIN, RANDOM 01/21/2023 CBC w DIFF 12/29/2024 CBC w DIFF 10/05/2025 CBC w DIFF 04/16/2022 CBC w DIFF 01/21/2023 CBC w DIFF 10/09/2022 URINALYSIS (UA) 10/05/2025 Urinalysis and Microscopic 10/05/2025 Uric Acid 08/29/2025 Lipid Panel 12/29/2024 Lipid Panel 10/05/2025 Lipid Panel 04/16/2022 Microalbumin, Random 10/05/2025 Microalbumin, Random 08/29/2025 Urine Culture 10/05/2025 Hemoglobin A1c 10/05/2025 Hemoglobin A1c 12/29/2024 Next Appt Details Provider Name:Gerald Rasmussen Hudson , 01/06/2026 03:45:00 PM, [address] [place] [address] [address], [place], [phone], Provider Name:Gerald Rasmussen Hudson , 10/09/2026 03:30:00 PM, [address] [place] [address] [address], [place], [address], Insurance Providers Payer Name Payer Address Payer Phone Subscriber Number Group Number Insured Name Patient Relationship to Insured Coverage Start Date Coverage End Date [employer] [place] [address] [place], [place] [id number] Eve Camara Self - patient is the insured Medical (General) History Medical History History ICD Code Carpal tunnel syndrome of right wrist G5 6.01 Hyperlipidemia, unspecified hyperlipidem ia type E78.5 [id number] diabetes mellitus multiple tubular adenomas of the colon uterine fibroid and abnormal 1.1 cm uterine stripe pelvic ultrasound December 2016, biopsy was recommended obesity hyperlipidemia essential hypertension urinary incontinence former smoker Diabetes Surgical History Surgery Date(Month/Year) Uterus biopsy [facility] 10/2020 colonoscopy, Dr. Ospina 01/2019 tubal ligation section X2 Hospitalization History Reason Date(Month/Year) No history
== END 2025-10-05 13:11 | disposition home or self-care (01) ==
LOC: HO.LNP 13:10
PROVIDERS: Visit Provider Internal Medicine Medical Oncology
DX: R39.9 Unspecified symptoms and signs involving the genitourinary system (principal)
CPT/HCPCS: 81001; 87086